=== PATIENT | male | born 1935 | race Caucasian/White ===

== ENCOUNTER 2019-12-07 07:20 | Emergency (ER) | payer OTHER ==
[2019-12-07] MEDS ORDERED: BUPIVACAINE 0.5% PF 10 ML VIAL ONE (08:49)
[2019-12-07] MEDS ORDERED: LIDOCAINE 1% MPF 5 ML VIAL ONE (08:49)
--- NOTE | 2019-12-07 08:54 | RAD REPORT ---
EXAM DESCRIPTION: RAD - Hand Left 3 View - 12/07/2019 8:02 am CLINICAL HISTORY: PAIN COMPARISON: No comparisons FINDINGS: Dislocation involving the PIP joint of the fifth finger with mild overriding. No acute fra cture seen.
--- NOTE | 2019-12-07 09:48 | RAD REPORT ---
EXAM DESCRIPTION: RAD - Hand Left 2 View - 12/07/2019 9:30 am CLINICAL HISTORY: post reduction;Pain COMPARISON: Hand Left 3 View dated 12/07/2019 FINDINGS: Previously noted dislocation of the PIP joint of the fifth finger has been reduced. Tiny a vulsion injury may be present along the dorsal base of the middle phalanx of the fifth finger.
--- NOTE | 2019-12-07 09:53 | EDPHYS ---
Physician Documentation [facility] Name: Darrel Ledesma Age: 84 yrs Sex: Male : 1935 Arrival Date: 12/07/2019 Time: 07:25 Bed 25 Private MD: Mauricio Schafer ED Physician Patrick Zhang HPI: 12/06 08:00 This 84 yrs old Male presents to ER via Ambulatory with complaints of Finger brady Injury. 08:00 Trauma demographics: County: The injury occurred in [place]. Mechanism of injury: brady Fall: the patient fell from a standing position. Associated injuries: The patient sustained dorsal aspect of middle phalanx of left little finger, contusion, decreased range of motion, deformity, painful injury. Onset: The symptoms/episode began/occurred last night. The patient has not experienced similar symptoms in the past. Historical: - Allergies: 07:36 No Known Allergies; ss - PMHx: 07:36 Depression; Hyperlipidemia; Diabetes - NIDDM; Hypertension; ss - PSHx: 07:36 brain surgery "to get dried blood off my brain"; ss - Immunization history:: Adult Immunizations up to date. - Social history:: Smoking status: Patient denies any tobacco usage or history of. ROS: 08:01 Constitutional: Negative for fever, chills, and weight loss, Eyes: Negative for injury, brady pain, redness, and discharge, ENT: Negative for injury, pain, and discharge, Neck: Negative for injury, pain, and swelling, Cardiovascular: Negative for chest pain, palpitations, and edema, Respiratory: Negative for shortness of breath, cough, wheezing, and pleuritic chest pain, Abdomen/GI: Negative for abdominal pain, nausea, vomiting, diarrhea, and constipation, Back: Negative for injury and pain, : Negative for injury, bleeding, discharge, and swelling, Skin: Negative for injury, rash, and discoloration, Neuro: Negative for headache, weakness, numbness, tingling, and seizure, Psych: Negative for depression, anxiety, suicide ideation, homicidal ideation, and hallucinations, Allergy/Immunology: Negative for hives, rash, and allergies, Endocrine: Negative for neck swelling, polydipsia, polyuria, polyphagia, and marked weight changes, Hematologic/Lymphatic: Negative for swollen nodes, abnormal bleeding, and unusual bruising. 08:01 MS/extremity: Positive for decreased range of motion, deformity, pain, swelling, tenderness, of the dorsal aspect of middle phalanx of left little finger. Exam: 08:01 Constitutional: This is a well developed, well nourished patient who is awake, alert, brady and in no acute distress. Head/Face: Normocephalic, atraumatic. Eyes: Pupils equal round and reactive to light, extra-ocular motions intact. Lids and lashes normal. Conjunctiva and sclera are non-icteric and not injected. Cornea within normal limits. Periorbital areas with no swelling, redness, or edema. ENT: Nares patent. No nasal discharge, no septal abnormalities noted. Tympanic membranes are normal and external auditory canals are clear. Oropharynx with no redness, swelling, or masses, exudates, or evidence of obstruction, uvula midline. Mucous membranes moist. Neck: Trachea midline, no thyromegaly or masses palpated, and no cervical lymphadenopathy. Supple, full range of motion without nuchal rigidity, or vertebral point tenderness. No Meningismus. Chest/axilla: Normal chest wall appearance and motion. Nontender with no deformity. No lesions are appreciated. Cardiovascular: Regular rate and rhythm with a normal S1 and S2. No gallops, murmurs, or rubs. Normal PMI, no JVD. No pulse deficits. Respiratory: Lungs have equal breath sounds bilaterally, clear to auscultation and percussion. No rales, rhonchi or wheezes noted. No increased work of breathing, no retractions or nasal flaring. Abdomen/GI: Soft, non-tender, with normal bowel sounds. No distension or tympany. No guarding or rebound. No evidence of tenderness throughout. Back: No spinal tenderness. No costovertebral tenderness. Full range of motion. Male : Normal genitalia with no discharge or lesions. Skin: Warm, dry with normal turgor. Normal color with no rashes, no lesions, and no evidence of cellulitis. Neuro: Awake and alert, GCS 15, oriented to person, place, time, and situation. Cranial nerves II-XII grossly intact. Motor strength 5/5 in all extremities. Sensory grossly intact. Cerebellar exam normal. Normal gait. Psych: Awake, alert, with orientation to person, place and time. Behavior, mood, and affect are within normal limits. 08:01 Musculoskeletal/extremity: ROM: limited active range of motion due to pain, limited passive range of motion due to pain, Circulation is intact in all extremities. Sensation intact. Compartment Syndrome exam of affected extremity: is normal. Joints: the PIP of left little finger displays dislocation. Vital Signs: 07:33 BP 155 / 90; Pulse 89; Resp 16; Temp 98.6(TE); Pulse Ox 97% on R/A; Pain 8/10; ss Procedures: 08:10 Splinting: using finger splint, applied by myself. post reduction film - Examined by brady mi, post splint application: neurovascular intact, Patient tolerated well. Reduction: of the PIP of left little finger, using traction, manipulation, flexion, Immobilized with finger splint, Patient tolerated well. Post reduction film - reveals normal alignment. MDM: 07:38 Patient medically screened. [facility] 08:03 Data reviewed: vital signs, nurses notes, radiologic studies, plain films. [facility] 08:11 Differential diagnosis: dislocation, closed fracture. Data interpreted: Cardiac brady monitor: not applicable for this patient encounter. Pulse oximetry: on room air is 97 %. Test interpretation: by ED physician or midlevel provider: plain radiologic studies. Counseling: I had a detailed discussion with the patient and/or guardian regarding: the historical points, exam findings, and any diagnostic results supporting the discharge/admit diagnosis, radiology results, the need for outpatient follow up, for definitive care, a hand specialist. ED course: digit block applied, sterile prep, reduced without complications, splinted, nvi intact. 09:49 Medication response: pain resolved, ring removed om 4th finger. [facility] 12/06 07:38 Order name: Hand Left 3 View XRAY [facility] 12/06 07:38 Order name: Ice pack; Complete Time: 07:40 [facility] 12/06 09:19 Order name: Hand Left 2 View XRAY: post reduction brady 12/06 08:00 Order name: Dressing - Wound; Complete Time: 08:57 [facility] 12/06 08:00 Order name: Gloves, Sterile; Complete Time: 08:57 [facility] 12/06 08:00 Order name: Setup Suture Tray; Complete Time: 08:57 [facility] Administered Medications: 08:45 Drug: Lidocaine (1 %) 5 ml {Note: administered to affected area by Dr. Zhang.} ss Volume: 5 ml; Route: Infiltration; 08:45 Drug: Bupivacaine (0.5 %) 5 ml {Note: administered to affected area by Dr. Zhang.} ss Volume: 10 ml; Route: Infiltration; Disposition: 12/07/19 09:52 Discharged to Home. Impression: Dislocation of proximal interphalangeal joint of left little finger - reduced, Fall due to bumping against object. - Condition is Stable. - Discharge Instructions: Finger or Thumb Dislocation, Fall Prevention in the Home, [id number], Finger or Thumb Dislocation, [id number]. - Prescriptions for Tylenol- Codeine #3 300-30 mg Oral Tablet - take 2 tablets by ORAL route every 6 hours As needed; 24 tablet. Motrin IB 200 mg Oral Tablet - take 2 tablet by ORAL route every 6 hours As needed as needed with food; 30 tablet. - Medication Reconciliation Form, Thank You Letter, Antibiotic Education, Prescription Opioid Use form. - Follow up: Mauricio Schafer; When: 2 - 3 days; Reason: Recheck today's complaints, Continuance of care, Re-evaluation by your physician. Follow up: Gibran Han; When: 2 - 3 days; Reason: Recheck today's complaints, Re-evaluation by your physician. - Problem is new. - Symptoms have improved. Signatures: Dispatcher [employer] [facility] Patrick Zhang MD MD cha Smirch, Shelby RN RN ss Corrections: (The following items were deleted from the chart) 08:04 08:00 Hand Left 2 View+RAD.RAD.BRZ ordered. [facility] 10:13 09:52 12/07/2019 09:52 Discharged to Home. Impression: Dislocation of proximal ss interphalangeal joint of left little finger - reduced; Fall due to bumping against object. Condition is Stable. Discharge Instructions: Finger or Thumb Dislocation, Fall Prevention in the Home, [id number], Finger or Thumb Dislocation, [id number]. Prescriptions for Tylenol-Codeine #3 300-30 mg Oral Tablet - take 2 tablets by ORAL route every 6 hours As needed; 24 tablet, Motrin IB 200 mg Oral Tablet - take 2 tablet by ORAL route every 6 hours As needed as needed with food; 30 tablet. and Forms are Medication Reconciliation Form, Thank You Letter, Antibiotic Education, Prescription Opioid Use. Follow up: Mauricio Schafer; When: 2 - 3 days; Reason: Recheck today's complaints, Continuance of care, Re-evaluation by your physician. Follow up: Gibran Han; When: 2 - 3 days; Reason: Recheck today's complaints, Re-evaluation by your physician. Problem is new. Symptoms have improved. brady
--- NOTE | 2019-12-07 09:53 | ER ---
Nurse's Notes [facility] Name: Darrel Ledesma Age: 84 yrs Sex: Male : 1935 Arrival Date: 12/07/2019 Time: 07:25 Bed 25 Private MD: Mauricio Schafer Diagnosis: Dislocation of proximal interphalangeal joint of left little finger-reduced;Fall due to bumping against object Presentation: 12/06 07:33 Chief complaint: Patient states: L fifth finger pain that began after falling last ss night. Coronavirus screen: Proceed with normal triage. Patient denies a cough. Patient denies shortness of breath or difficulty breathing. Patient denies measured and/or subjective temperature greater than 100.4F prior to today's visit. Patient denies travel on a cruise ship or to a country the [facility] currently lists as an affected area. Patient denies contact with known and/or suspected case of COVID-19. Ebola Screen: Patient denies exposure to infectious person. Patient denies travel to an Ebola-affected area in the 21 days before illness onset. Initial Sepsis Screen: Does the patient meet any 2 criteria? No. Patient's initial sepsis screen is negative. Does the patient have a suspected source of infection? No. Patient's initial sepsis screen is negative. Risk Assessment: Do you want to hurt yourself or someone else? Patient reports no desire to harm self or others. Onset of symptoms was December 06, 2019. 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 - Social history:: Smoking status: Patient denies any tobacco usage or history of. Screenin:36 Abuse screen: Denies threats or abuse. Denies injuries from another. Nutritional ss screening: No deficits noted. Tuberculosis screening: Never had TB. Fall Risk None identified. Assessment: 07:36 General: Appears in no apparent distress. comfortable, Behavior is calm, cooperative. ss Pain: Complains of pain in dorsal aspect of middle phalanx of left little finger Pain currently is 8 out of 10 on a pain scale. Pain began 1 day ago. Is continuous, Aggravated by increased activity. Neuro: Level of Consciousness is awake, alert, obeys commands, Oriented to person, place, time, situation. Cardiovascular: Capillary refill < 3 seconds is brisk in bilateral fingers. Respiratory: Airway is patent Respiratory effort is even, unlabored, Respiratory pattern is regular, symmetrical. GI: Patient currently denies diarrhea, nausea, vomiting. : No signs and/or symptoms were reported regarding the genitourinary system. EENT: Nares are clear Oral mucosa is moist. Derm: Skin is pink, warm \\T\\ dry. normal. Musculoskeletal: Range of motion: intact in all extremities. Vital Signs: 07:33 BP 155 / 90; Pulse 89; Resp 16; Temp 98.6(TE); Pulse Ox 97% on R/A; Pain 8/10; ss ED Course: 07:25 Patient arrived in ED. mr 07:26 Mauricio Schafer is Private Physician. mr 07:31 Patrick Zhang MD is Attending Physician. brady 07:32 Lisa Singletary RN is Primary Nurse. ss 07:35 Triage completed. ss 07:36 Arm band placed on right wrist. ss 07:36 Patient has correct armband on for positive identification. Bed in low position. Call ss light in reach. 08:04 Hand Left 3 View XRAY In Process Unspecified. EDMS 09:31 Hand Left 2 View XRAY: post reduction In Process Unspecified. EDMS 09:52 Mauricio Schafer is Referral Physician. brady 09:52 Gibran Han MD is Referral Physician. brady 10:12 No provider procedures requiring assistance completed. Patient did not have IV access ss during this emergency room visit. aluminium finger splint with Coban to L fifth finger. Administered Medications: 08:45 Drug: Lidocaine (1 %) 5 ml {Note: administered to affected area by Dr. Zhang.} ss Volume: 5 ml; Route: Infiltration; 08:45 Drug: Bupivacaine (0.5 %) 5 ml {Note: administered to affected area by Dr. Zhang.} ss Volume: 10 ml; Route: Infiltration; Outcome: 09:52 Discharge ordered by . brady 10:12 Discharged to home ambulatory. ss 10:12 Condition: good 10:12 Discharge instructions given to patient, Instructed on discharge instructions, follow up and referral plans. medication usage, Demonstrated understanding of instructions, follow-up care, medications, Prescriptions given X 2. 10:13 Patient left the ED. ss Signatures: Dispatcher [employer] EDPatrick Stephenson MD MD cha Rivera Minoo Lisa Alan, RN RN ss
[2019-12-07 10:19] VITALS: BP 155/90; TEMP 98.6; O2SAT 97
== END 2019-12-07 10:13 | disposition home or self-care (01) ==
LOC: ER 07:20
PROC: 0RSXXZZ Reposition Left Finger Phalangeal Joint, External Approach (ICD-10-PCS; principal; 2019-12-07)
DX: S63.287A Dislocation of proximal interphalangeal joint of left little finger, initial encounter (principal); W18.00XA Striking against unspecified object with subsequent fall, initial encounter; Y93.9 Activity, unspecified; Y92.89 Other specified places as the place of occurrence of the external cause; I10 Essential (primary) hypertension
CPT/HCPCS: 99284

== ENCOUNTER 2024-05-11 10:35 | Observation (INO) | payer OTHER ==
--- OUTSIDE RECORDS SUMMARY | 2024-05-11 10:41 | XMS REPORT | Continuity of Care Document ---
Author Name Unknown Address [address] [facility] [address] [place] [address] [facility] thconnect Address [address] [facility] [address] [place] [address] Care Team Providers Care Die Sinker Apprentice Name Role Phone ALMAZ MADERA Primary Care Physician Unavailab JUSTIN Tobias Attending Clinician Unav JUSTIN Martinez Attending Clinician Unav ailFAY Comer Attending Clinician UnavailJustin Hidalgo MD Attending Clinician + ALISTAIR TAYLOR Attending Clinician Unavailable ALISTAIR TAYLOR Attending Clinician Unavailable Alistair Mims Attending Clinician [phone] Fay Barrios MD K.HRah Attending Clinician + [phone] 2, [facility] Attending Clinician Unavailable Fay Barrios MD Attending Clinician + [phone] Doctor Unassigned, [place] Attending Clinician U perez 2, [facility] Attending Clinician Unavailable FAZAL YOUNG Attending Clinician Unavailable Fazal Yuong MD Attending Clinician [phone] DANYEL THURMAN Attending Clinician Unavailable JOANA MONGE Attending Clinician Unavailable Joana Almonte Attending Clinician [phone] Visit, [facility] Nurse Attending Clinician Unavailable ANAYELI CYDNEY Attending Clinician Unavailable PRISCA CHEUNG Attending Clinician Unavailab Prisca Mayen DO Attending Clinician [phone] Anayeli RICHTER, Cydney Attending Clinician [phone] ANNA GOODMAN Attending Clinician Unavailab Anna Alvarez DO Attending Clinician [phone] Loreto Terry MD Attending Clinician [phone] Pob, [facility] Main Attending Clinician Unavailshivani Thurman MD, Danyel Attending Clinician [phone] LIBAN BARRERA Attending Clinician Unavail able Nurse, [facility] Pob Immunization Attending Clinician Unavailable Liban Barrera DO Attending Clinician [phone] NITZA DE JESUS Attending Clinician Unavailable RUPESH KLINE Attending Clinician Unavailable Alma Melo Attending Clinician [phone] Ashley Bonilla MD Attending Clinician + Laurel Butcher MD Attending Clinici an LAUREL BUTCHER Attending Clinician Unavailable Nitza De Jesus DO Attending Clinician [phone] Chapis Ellis MD Attending Clinician + [phone] CHAPIS ELLIS Attending Clinician Unavailabl giorgi Negron CLIP LOADING MACHINE ADJUSTER, Gene Mitchell Attending Clinician [phone] WIN SALMON Attending Clinician Unavailable Rosalino Boggs MD Attending Clinician [phone], [facility] Attending Clinician Unavailable Mauricio Mathews MD Attending Clinician [phone] Ann Marie Ward MD Attending Clinician [phone] ANN MARIE WARD Attending Clinician Unavailabl e RACHEL, GENE MITCHELL Attending Clinician Soha Albarado RN, Lisa Attending Clinician [phone] Chapis Buckner MD Attending Clinician [phone] ASHLEY BNOILLA Attending Clinician Gris Simon MD Attending Clinician [phone] Gera RICHTER, Lulú Bee Attending Clinician + MAURICIO MATHEWS Attending Clinician Unavailab JUSTIN Tobias Admitting Clinician Unav ailALISTAIR Mcdermott Admitting Clinician Unavailable FAY BARRIOS.HRah Admitting Clinician UnavailFAZAL Rizo Admitting Clinician Unavailable DANYEL THURMAN Admitting Clinician Unavailable LORETO TERRY Admitting Clinician Unavailable Harrison RICHTER, Loreto Admitting Clinician [phone] Cuca RICHTER, Danyel Admitting Clinician [phone] LULÚ BOSS Admitting Clinician Unarickey Boss MD, Lulú Bee Admitting Clinician + MAURICIO MATHEWS Admitting Clinician Unavailab heather Payers Payer Name Policy Type Policy Number Effective Date Expirati on Date Source MEDICARE PART A \\T\\ B [id number] 1999 00:00:00 [employer] HMO [id number] 2017 00:00:00 COMMERCIAL NON-CONTRACT GENERIC [id number] 2015 00:00:00 Problems Condition Name Condition Details Condition Category Status Onset Date Resolution Date Last Treatment Date Treating Clinician Comments Source Incarcerat ed umbilical hernia Incarcerat ed umbilical hernia Disease Active 4-14 00:00: 00 [facility] 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 Disease Active 7-16 00:00: 00 [facility] HFrEF (heart failure with reduced ejection fraction) HFrEF (heart failure with reduced ejection fraction) Disease Active -17 00:00: 00 [facility] 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 Disease Active -17 00:00: 00 [facility] 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 Disease Active 10-09 00:00: 00 [facility] 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 Disease Active 10-09 00:00: 00 [facility] 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, with long-term current use of insulin 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, with long-term current use of insulin Disease Active 10-08 00:00: 00 [facility] 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, with long-term current use of insulin 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, with long-term current use of insulin Disease Active 10-08 00:00: 00 [facility] Essential hypertensi on Essential hypertensi on Disease Active 08-15 00:00: 00 [facility] Other hyperlipid emia Other hyperlipid emia Disease Active 08-15 00:00: 00 [facility] KSENIA (acute kidney injury) KSENIA (acute kidney injury) Disease Active 08-15 00:00: 00 [facility] KSENIA (acute kidney injury) KSENIA (acute kidney injury) Disease Active 08-15 00:00: 00 [facility] NSTEMI (non-ST elevated myocardial infarction ) NSTEMI (non-ST elevated myocardial infarction ) Disease Active 08-14 00:00: 00 [facility] Acute diastolic congestive heart failure Acute diastolic congestive heart failure Disease Resolve d 08-15 00:00: 00 2020-10-09 00:00:00 2020-10-09 13:25:06 [facility] Allergies, Adverse Reactions, Alerts Allergy Name Allergy Type Status Severity Reaction(s) Onset Date Inactive Date Treating Clinician Comments Source NO KNOWN ALLERGIE S Drug Class Active [facility] Social History Social Habit Start Date Stop Date Quantity Comments Source History of tobacco use Current smoker [facility] Alcoholic beverage intake 2024-04-18 00:00:00 2024-04-18 00:00:00 Current non-drinker of alcohol (finding) [facility] Alcohol intake 2023-05-31 00:00:00 2023-05-31 00:00:00 Current non-drinker of alcohol (finding) [facility] Exposure to SARS-CoV-2 (event) 2022-10-10 00:00:00 2022-10-20 13:49:00 Not sure [facility] History of Social function 2022-09-14 00:00:00 2022-09-14 00:00:00 [facility] Tobacco use and exposure 2022-05-11 00:00:00 2022-05-11 00:00:00 Smokeless tobacco non-user [facility] Tobacco Comment 2022-05-11 00:00:00 2022-05-11 00:00:00 quit 15-16 years ago [facility] Sex assigned at 1935 00:00:00 1935 00:00:00 [facility] Smoking Status Start Date Stop Date Source Ex-smoker 2022-05-11 00:00:00 2022-05-11 00:00:00 [facility] Medications Ordered Medication Name Filled Medication Name Start Date Stop Date Current Medication? Ordering Clinician Indication Dosage Frequency Signature (SIG) Comments Components Source pantoprazol e (PROTONIX) EC tablet 40 mg 04-18 23:15: 00 04-18 23:15 :00 No 40mg 40 mg, Oral, ONCE, 1 dose, On Wed04/18/24 at 1815, [facility] metoclopram lakia HCl (REGLAN) tablet 5 mg 04-18 23:10: 00 04-18 23:15 :00 No 5mg 5 mg, Oral, ONCE, 1 dose, On Wed04/18/24 at 1815, [facility] NaCl 0.9% (NS) bolus infusion 500 mL 04-18 22:30: 00 04-18 23:23 :00 No 500mL at 999 mL/hr, 500 mL, IV Infusion, ONCE, 1 dose, On Wed04/18/24 at 1730, STAT [facility] sodium chloride (NS) injection 5 mL 04-18 21:35: 26 Yes 5mL 5 mL, Intravenou s, PRN, Starting on Wed04/18/24 at 1635, Until Discontinu ed, Routine, IV line flushing [facility] metoprolol succinate XL 25 mg 24 hr tablet 8-14 00:00: 00 Yes [id number] 25mg TAKE 1 TABLET BY MOUTH EVERY MORNING AND EVENING. [facility] perflutren protein-A microsphr (OPTISON) injection 3 mL 12-26 18:45: 00 12-26 19:03 :00 No [id number] 3mL 3 mL, IV Push, ONCE, 1 dose, On Wed12/27/23 at 1345, Routine [facility] citalopram (CELEXA) 10 mg tablet 08-05 10:40: 37 08-05 00:00 :00 No 10mg Take 1 tablet by mouth in the morning. [facility] metoprolol succinate XL 25 mg 24 hr tablet 08-05 00:00: 00 Yes [id number] 25mg Take 1 tablet by mouth every morning and evening. [facility] metoprolol succinate XL 25 mg 24 hr tablet 08-05 00:00: 00 08-05 00:00 :00 No [id number] 50mg Take 2 tablets by mouth every morning and evening. [facility] losartan 25 mg tablet 2022-07 00:00: 00 Yes [id number] 25mg Take 1 tablet by mouth every morning. [facility] simvastatin 40 mg tablet 2022-07 00:00: 00 Yes [id number] 40mg Take 1 tablet by mouth at bedtime. [facility] furosemide 20 mg tablet 2022-07 00:00: 00 Yes [id number] 20mg Take 1 tablet by mouth in the morning. [facility] metoprolol succinate XL 25 mg 24 hr tablet 2022-07 00:00: 00 08-05 00:00 :00 No [id number] 25mg Take 1 tablet by mouth every morning and evening. [facility] LOSARTAN 25 mg tablet 2022-07 1- 00:00: 00 05-31 00:00 :00 No [id number] 25mg TAKE 1 TABLET BY MOUTH EVERY DAY IN THE MORNING [facility] METOPROLOL SUCCINATE XL 25 mg 24 hr tablet 2022-07 0-26 00:00: 00 05-31 00:00 :00 No [id number] 25mg TAKE 1 TABLET BY MOUTH IN THE MORNING AND IN THE EVENING [facility] B Complex Vitamins tablet 2022-07 0 00:00: 00 Yes [id number] 1{tbl} Take 1 tablet by mouth in the morning. [facility] Cholecalcif samir, Vitamin D3, (VITAMIN D3) 125 mcg (5,000 unit) tablet 2022-07 00:00: 00 Yes [id number] 5000U Take 1 tablet by mouth in the morning. [facility] Oral Electrolyte s (PEDIALYTE ADVANCED CARE) solution 2022-07 0 00:00: 00 08-05 00:00 :00 No [id number] 500mL Take 500 mL by mouth every 6 (six) hours. [facility] metoclopram lakia HCl 10 mg tablet 2022-07 0 00:00: 00 08-05 00:00 :00 No [id number] 10mg Take 1 tablet by mouth every 6 (six) hours as needed (Hiccups). [facility] losartan 25 mg tablet 09-29 10:09: 47 09-29 00:00 :00 No 1 tablet [facility] magnesium oxide 400 mg magnesium Tab 09-29 00:00: 00 08-05 00:00 :00 No [id number] 400mg Take 400 mg by mouth in the morning and 400 mg in the evening. [facility] simvastatin 40 mg tablet 09-29 00:00: 00 05-31 00:00 :00 No [id number] 40mg Take 1 tablet by mouth at bedtime. [facility] furosemide 20 mg tablet 09-29 00:00: 05-31 00:00 :00 No [id number] 20mg Take 1 tablet by mouth in the morning. [facility] losartan 25 mg tablet 09-29 00:00: 05-28 00:00 :00 No [id number] 25mg Take 1 tablet by mouth in the morning. [facility] metoprolol succinate XL 25 mg 24 hr tablet 09-29 00:00: 05-20 00:00 :00 No [id number] 25mg Take 1 tablet by mouth in the morning and 1 tablet in the evening. [facility] digoxin 125 mcg (0.125 mg) tablet 09-29 00:00: 00 10-20 00:00 :00 No [id number] 125ug Take 1 tablet by mouth every other day. [facility] citalopram (CELEXA) 10 mg tablet 09-22 11:17: 08 Yes 10mg Take 1 tablet by mouth in the morning. [facility] losartan 25 mg tablet 09-22 11:17: 08 Yes 1 tablet [facility] NaCl 0.9% (NS) bolus infusion 500 mL 09-15 21:00: 00 09-15 21:54 :00 No 500mL at 999 mL/hr, 500 mL, IV Infusion, ONCE, 1 dose, On Wed09/15/22 at 1500, STAT [facility] NaCl 0.9% (NS) bolus infusion 1,000 mL 09-15 19:30: 00 09-15 21:30 :00 No 1000mL at 999 mL/hr, 1,000 mL, IV Infusion, ONCE, 1 dose, On Wed09/15/22 at 1330, STAT [facility] furosemide 20 mg tablet 09-15 00:00: 00 09-29 00:00 :00 No [id number] 20mg Take 1 tablet by mouth in the morning. [facility] insulin degludec (TRESIBA FLEXTOUCH U-200 SC) 09-14 13:07: 47 Yes 30U inject 30 Units under the skin daily. [facility] furosemide 20 mg tablet 08-31 14:49: 34 08-31 00:00 :00 No 20mg Take 20 mg by mouth every morning and evening. [facility] empaglifloz in 10 mg 08-31 00:00: 00 09-22 00:00 :00 No [id number] 10mg Take 1 tablet by mouth in the morning. [facility] furosemide 20 mg tablet 08-31 00:00: 00 09-15 00:00 :00 No [id number] 20mg Take 1 tablet by mouth every morning and evening. [facility] hydrALAZINE 10 mg tablet 2021-07 10:01: 23 07-13 00:00 :00 No 10mg Take 10 mg by mouth in the morning and 10 mg at noon and 10 mg in the evening. [facility] citalopram (CELEXA) 10 mg tablet 2021-07 08:49: 05 Yes 10mg Take 10 mg by mouth daily. [facility] furosemide 20 mg tablet 2021-07 08:48: 45 Yes 20mg Take 20 mg by mouth every morning and evening. [facility] insulin degludec (TRESIBA FLEXTOUCH U-200 SC) 2021-07 08:48: 45 Yes 30U inject 30 Units under the skin daily. [facility] hydrALAZINE 10 mg tablet 2021-07 08:48: 45 Yes 10mg Take 10 mg by mouth in the morning and 10 mg at noon and 10 mg in the evening. [facility] hydrALAZINE 10 mg tablet 2021-07 00:00: 00 08-31 00:00 :00 No 10mg Take 1 tablet by mouth in the morning and 1 tablet in the evening. [facility] furosemide 20 mg tablet 2021-0717 08:32: 49 Yes 20mg Take 20 mg by mouth every morning and evening. [facility] simvastatin 40 mg tablet 2021-07 00:00: 00 09-29 00:00 :00 No [id number] 40mg Take 1 tablet by mouth at bedtime. [facility] digoxin 125 mcg (0.125 mg) tablet 2021-07 12:26: 05-07 00:00 :00 No 125ug Take 125 mcg by mouth every 2 (two) days. [facility] metoprolol succinate XL 25 mg 24 hr tablet 2021-07 12:: 05-07 00:00 :00 No 25mg Take 25 mg by mouth 2 (two) times daily. [facility] digoxin 125 mcg (0.125 mg) tablet 2021-07 00:00: 00 09-29 00:00 :00 No [id number] 125ug Take 1 tablet by mouth every other day. [facility] metoprolol succinate XL 25 mg 24 hr tablet 2021-07 00:00: 00 09-29 00:00 :00 No [id number] 25mg Take 1 tablet by mouth in the morning and 1 tablet in the evening. [facility] losartan 25 mg tablet 2021-07 00:00: 00 09-15 00:00 :00 No [id number] 25mg Take 1 tablet by mouth in the morning. [facility] furosemide 20 mg tablet 2021-07 09:15: 51 Yes 20mg Take 20 mg by mouth every morning and evening. [facility] metoprolol succinate XL 25 mg 24 hr tablet 2021-07 09:13: 53 Yes 25mg Take 25 mg by mouth 2 (two) times daily. [facility] digoxin 125 mcg (0.125 mg) tablet 2021-07 09:13: 52 Yes 125ug Take 125 mcg by mouth every 2 (two) days. [facility] hydrALAZINE 10 mg tablet 2021-07 08:54: 00 Yes 10mg Take 10 mg by mouth in the morning and 10 mg at noon and 10 mg in the evening. [facility] furosemide (LASIX) 20 mg tablet 01-23 13:18: 22 Yes 10mg Take 10 mg by mouth every morning and evening. [facility] insulin degludec (TRESIBA FLEXTOUCH U-200 SC) 01-23 12:53: 00 Yes 30U inject 30 Units under the skin daily. [facility] citalopram (CELEXA) 10 mg tablet 12-06 22:14: 34 Yes 10mg Take 10 mg by mouth daily. [facility] digoxin 125 mcg (0.125 mg) tablet 12-06 22:14: 34 Yes 125ug Take 125 mcg by mouth every 2 (two) days. [facility] metoprolol succinate XL (TOPROL XL) 25 mg 24 hr tablet 12-06 22:14: 34 Yes 25mg Take 25 mg by mouth 2 (two) times daily. [facility] fluticasone -umeclidin- vilanter (TRELEGY ELLIPTA) 100-62.5-25 mcg DsDv 12-06 22:13: 53 12-06 00:00 :00 No Inhale. [facility] tiZANidine 4 mg tablet 12-06 22:13: 32 12-06 00:00 :00 No 4mg Take 4 mg by mouth 3 (three) times daily as needed. [facility] montelukast 10 mg tablet 12-06 22:13: 29 12-06 00:00 :00 No 10mg Take 10 mg by mouth daily. [facility] traMADoL 50 mg tablet 8-03 00:00: 00 12-06 00:00 :00 No [id number] 50mg Take 1 tablet by mouth every 6 (six) hours as needed for Pain (scale 7-10). Indication s: acute pain [facility] aspirin 81 mg chewable tablet 02-09 00:00: 00 Yes [id number] 81mg Take 1 tablet by mouth daily. [facility] losartan 25 mg tablet 02-09 00:00: 00 05-07 00:00 :00 No [id number] 25mg Take 1 tablet by mouth daily. [facility] digoxin 125 mcg tablet 02-09 00:00: 00 12-06 00:00 :00 No [id number] .125mg Take 1 tablet by mouth daily. [facility] furosemide 20 mg tablet 02-09 00:00: 00 12-06 00:00 :00 No [id number] 60mg Take 3 tablets by mouth daily. [facility] metoprolol succinate XL 50 mg 24 hr tablet 02-08 00:00: 00 12-06 00:00 :00 No [id number] 50mg Take 1 tablet by mouth 2 (two) times daily with meals. [facility] Colesevelam (WELCHOL) 3.75 gram PwPk 02-07 15:23: 29 02-07 00:00 :00 No Take by mouth. [facility] digoxin 125 mcg (0.125 mg) tablet 11-07 00:00: 00 11-18 00:00 :00 No 125ug Take 1 tablet by mouth daily. [facility] isosorbide dinitrate 10 mg tablet 11-07 00:00: 00 11-11 00:00 :00 No 10mg Take 1 tablet by mouth 3 (three) times daily. [facility] hydrALAZINE 10 mg tablet 15 00:00: 00 11-11 00:00 :00 No 10mg Take 1 tablet by mouth 3 (three) times daily. [facility] sodium polystyrene sulfonate 15 gram/60 mL suspension 09 00:00: 00 06-30 00:00 :00 No [id number] 15g Take 60 mL by mouth daily. [facility] simvastatin 40 mg tablet 10-28 00:00: 00 01-27 04:59 :00 No [id number] 40mg Take 1 tablet by mouth at bedtime for 90 days. [facility] magnesium oxide 400 mg magnesium Tab 325 00:00: 00 09-29 00:00 :00 No 400mg Take 400 mg by mouth 2 (two) times daily. [facility] furosemide 20 mg tablet 10-14 00:00: 00 12-06 00:00 :00 No 40mg Take 2 tablets by mouth 2 (two) times daily. [facility] insulin NPH and regular human 70-30 100 unit/mL (70-30) injection 10-09 00:00: 00 Yes [id number] 25U inject 25 Units under the skin 2 (two) times daily before breakfast and dinner. [facility] insulin syr/ndl U100 half idris 0.3 mL 31 gauge x 1/4" Syrg 10-09 00:00: 00 Yes [id number] 200{eac h} 200 Each 2 (two) times daily with meals. [facility] metoprolol succinate XL 50 mg 24 hr tablet 10-09 00:00: 00 02-08 00:00 :00 No [id number] 50mg Take 1 tablet by mouth 2 (two) times daily with meals. [facility] aspirin 81 mg chewable tablet 08-26 00:00: 00 02-08 00:00 :00 No [id number] 81mg Take 1 tablet by mouth daily. [facility] Immunizations Ordered Immunization Name Filled Immunization Name Date Status Comments Source Influenza Virus Vaccine,quad Im,preserve Free 65+ (FLUAD) 2023-05-31 00:00:00 Completed [facility] Influenza Virus Vaccine,quad Im,preserve Free 65+ 2022-05-11 00:00:00 Completed [facility] Influenza Virus Vaccine,quad Im,preserve Free 65+ 2022-05-11 00:00:00 Completed [facility] Influenza Virus Vaccine,quad Im,preserve Free 65+ 2022-05-11 00:00:00 Completed [facility] Influenza Virus Vaccine,quad Im,preserve Free 65+ 2022-05-11 00:00:00 Completed [facility] Influenza Virus Vaccine,quad Im,preserve Free 652022-05-11 00:00:00 Completed [facility] Influenza Virus Vaccine,quad Im,preserve Free 652022-05-11 00:00:00 Completed [facility] Influenza Virus Vaccine,quad Im,preserve Free 65+ 2022-05-11 00:00:00 Completed [facility] Influenza Virus Vaccine,quad Im,preserve Free 652022-05-11 00:00:00 Completed [facility] Influenza Virus Vaccine,quad Im,preserve Free 65+ 2022-05-11 00:00:00 Completed [facility] Influenza Virus Vaccine,quad Im,preserve Free 65+ 2022-05-11 00:00:00 Completed [facility] Influenza Virus Vaccine,quad Im,preserve Free 652022-05-11 00:00:00 Completed [facility] Influenza Virus Vaccine,quad Im,preserve Free 652022-05-11 00:00:00 Completed [facility] Influenza Virus Vaccine,quad Im,preserve Free 652022-05-11 00:00:00 Completed [facility] Influenza Virus Vaccine,quad Im,preserve Free 652022-05-11 00:00:00 Completed [facility] Influenza Virus Vaccine,quad Im,preserve Free 652022-05-11 00:00:00 Completed [facility] Influenza Virus Vaccine,quad Im,preserve Free 652022-05-11 00:00:00 Completed [facility] Influenza Virus Vaccine,quad Im,preserve Free 652022-05-11 00:00:00 Completed [facility] Influenza Virus Vaccine,quad Im,preserve Free 652022-05-11 00:00:00 Completed [facility] Influenza Virus Vaccine,quad Im,preserve Free 652022-05-11 00:00:00 Completed [facility] Influenza Virus Vaccine,quad Im,preserve Free 652022-05-11 00:00:00 Completed [facility] Influenza Virus Vaccine,quad Im,preserve Free 65+ 2022-05-11 00:00:00 Completed [facility] Influenza Virus Vaccine,quad Im,preserve Free 65+ 2022-05-11 00:00:00 Completed [facility] Influenza Virus Vaccine,quad Im,preserve Free 65+ 2022-05-11 00:00:00 Completed [facility] Influenza Virus Vaccine,quad Im,preserve Free 65+ 2022-05-11 00:00:00 Completed [facility] Influenza Virus Vaccine,quad Im,preserve Free 65+ 2022-05-11 00:00:00 Completed [facility] Influenza Virus Vaccine,quad Im,preserve Free 65+ 2022-05-11 00:00:00 Completed [facility] Influenza Virus Vaccine,quad Im,preserve Free 65+ (FLUAD) 2022-05-11 00:00:00 Completed [facility] SARS-COV-2 COVID-19 MODERNA 0.25ML BOOSTER VACCINE 2021-06-10 00:00:00 Completed [facility] SARS-COV-2 COVID-19 MODERNA 0.25ML BOOSTER VACCINE 2021-06-10 00:00:00 Completed [facility] SARS-COV-2 COVID-19 MODERNA 0.25ML BOOSTER VACCINE 2021-06-10 00:00:00 Completed [facility] SARS-COV-2 COVID-19 MODERNA 0.25ML BOOSTER VACCINE 2021-06-10 00:00:00 Completed [facility] SARS-COV-2 COVID-19 MODERNA 0.25ML BOOSTER VACCINE 2021-06-10 00:00:00 Completed [facility] SARS-COV-2 COVID-19 MODERNA 0.25ML BOOSTER VACCINE 2021-06-10 00:00:00 Completed [facility] SARS-COV-2 COVID-19 MODERNA 0.25ML BOOSTER VACCINE 2021-06-10 00:00:00 Completed [facility] SARS-COV-2 COVID-19 MODERNA 0.25ML BOOSTER VACCINE 2021-06-10 00:00:00 Completed [facility] SARS-COV-2 COVID-19 MODERNA 0.25ML BOOSTER VACCINE 2021-06-10 00:00:00 Completed [facility] SARS-COV-2 COVID-19 MODERNA 0.25ML BOOSTER VACCINE 2021-06-10 00:00:00 Completed [facility] SARS-COV-2 COVID-19 MODERNA 0.25ML BOOSTER VACCINE 2021-06-10 00:00:00 [facility] [facility]2 COVID-19 MODERNA 0.25ML BOOSTER VACCINE 2021-06-10 00:00:00 Completed [facility] SARS-COV-2 COVID-19 MODERNA 0.25ML BOOSTER VACCINE 2021-06-10 00:00:00 Completed [facility] SARS-COV-2 COVID-19 MODERNA 0.25ML BOOSTER VACCINE 2021-06-10 00:00:00 Completed [facility] SARS-COV-2 COVID-19 MODERNA 0.25ML BOOSTER VACCINE 2021-06-10 00:00:00 Completed [facility] SARS-COV-2 COVID-19 MODERNA 0.25ML BOOSTER VACCINE 2021-06-10 00:00:00 Completed [facility] SARS-COV-2 COVID-19 MODERNA 0.25ML BOOSTER VACCINE 2021-06-10 00:00:00 Completed [facility] SARS-COV-2 COVID-19 MODERNA 0.25ML BOOSTER VACCINE 2021-06-10 00:00:00 Completed [facility] SARS-COV-2 COVID-19 MODERNA 0.25ML BOOSTER VACCINE 2021-06-10 00:00:00 Completed [facility] SARS-COV-2 COVID-19 MODERNA 0.25ML BOOSTER VACCINE 2021-06-10 00:00:00 Completed [facility] SARS-COV-2 COVID-19 MODERNA 0.25ML BOOSTER VACCINE 2021-06-10 00:00:00 Completed [facility] SARS-COV-2 COVID-19 MODERNA 0.25ML BOOSTER VACCINE 2021-06-10 00:00:00 Completed [facility] SARS-COV-2 COVID-19 MODERNA 0.25ML BOOSTER VACCINE 2021-06-10 00:00:00 Completed [facility] SARS-COV-2 COVID-19 MODERNA 0.25ML BOOSTER VACCINE 2021-06-10 00:00:00 Completed [facility] SARS-COV-2 COVID-19 MODERNA 0.25ML BOOSTER VACCINE 2021-06-10 00:00:00 Completed [facility] SARS-COV-2 COVID-19 MODERNA 0.25ML BOOSTER VACCINE 2021-06-10 00:00:00 Completed [facility] SARS-COV-2 COVID-19 MODERNA 0.25ML BOOSTER VACCINE 2021-06-10 00:00:00 Completed [facility] SARS-COV-2 COVID-19 MODERNA 0.25ML BOOSTER VACCINE 2021-06-10 00:00:00 Completed [facility] SARS-COV-2 COVID-19 MODERNA 0.25ML BOOSTER VACCINE 2021-06-10 00:00:00 Completed [facility] SARS-COV-2 COVID-19 MODERNA 0.25ML BOOSTER VACCINE 2021-06-10 00:00:00 Completed [facility] SARS-COV-2 COVID-19 MODERNA 0.25ML BOOSTER VACCINE 2021-06-10 00:00:00 Completed [facility] SARS-COV-2 COVID-19 MODERNA 0.25ML BOOSTER VACCINE 2021-06-10 00:00:00 Completed SARS-COV-2 COVID-19 MODERNA VACCINE 2020-09-30 00:00:00 Completed [facility] SARS-COV-2 COVID-19 MODERNA VACCINE 2020-09-30 00:00:00 Completed [facility] SARS-COV-2 COVID-19 MODERNA 12+ YRS VACCINE 2020-09-30 00:00:00 Completed [facility] SARS-COV-2 COVID-19 MODERNA 12+ YRS VACCINE 2020-09-30 00:00:00 Completed [facility] SARS-COV-2 COVID-19 MODERNA 12+ YRS VACCINE 2020-09-30 00:00:00 Completed [facility] SARS-COV-2 COVID-19 MODERNA 12+ YRS VACCINE 2020-09-30 00:00:00 Completed [facility] SARS-COV-2 COVID-19 MODERNA 12+ YRS VACCINE 2020-09-30 00:00:00 Completed [facility] SARS-COV-2 COVID-19 MODERNA 12+ YRS VACCINE 2020-09-30 00:00:00 Completed [facility] SARS-COV-2 COVID-19 MODERNA 12+ YRS VACCINE 2020-09-30 00:00:00 Completed [facility] SARS-COV-2 COVID-19 MODERNA 12+ YRS VACCINE 2020-09-30 00:00:00 Completed [facility] SARS-COV-2 COVID-19 MODERNA 12+ YRS VACCINE 2020-09-30 00:00:00 Completed [facility] SARS-COV-2 COVID-19 MODERNA 12+ YRS VACCINE 2020-09-30 00:00:00 Completed [facility] SARS-COV-2 COVID-19 MODERNA 12+ YRS VACCINE 2020-09-30 00:00:00 Completed [facility] SARS-COV-2 COVID-19 MODERNA 12+ YRS VACCINE 2020-09-30 00:00:00 Completed [facility] SARS-COV-2 COVID-19 MODERNA 12+ YRS VACCINE 2020-09-30 00:00:00 Completed [facility] SARS-COV-2 COVID-19 MODERNA 12+ YRS VACCINE 2020-09-30 00:00:00 Completed [facility] SARS-COV-2 COVID-19 MODERNA 12+ YRS VACCINE 2020-09-30 00:00:00 Completed [facility] SARS-COV-2 COVID-19 MODERNA 12+ YRS VACCINE 2020-09-30 00:00:00 Completed [facility] SARS-COV-2 COVID-19 MODERNA 12+ YRS VACCINE 2020-09-30 00:00:00 Completed [facility] SARS-COV-2 COVID-19 MODERNA 12+ YRS VACCINE 2020-09-30 00:00:00 Completed [facility] SARS-COV-2 COVID-19 MODERNA 12+ YRS VACCINE 2020-09-30 00:00:00 Completed [facility] SARS-COV-2 COVID-19 MODERNA 12+ YRS VACCINE 2020-09-30 00:00:00 Completed [facility] SARS-COV-2 COVID-19 MODERNA 12+ YRS VACCINE 2020-09-30 00:00:00 Completed [facility] SARS-COV-2 COVID-19 MODERNA 12+ YRS VACCINE 2020-09-30 00:00:00 Completed [facility] SARS-COV-2 COVID-19 MODERNA 12+ YRS VACCINE 2020-09-30 00:00:00 Completed [facility] SARS-COV-2 COVID-19 MODERNA 12+ YRS VACCINE 2020-09-30 00:00:00 Completed [facility] SARS-COV-2 COVID-19 MODERNA 12+ YRS VACCINE 2020-09-30 00:00:00 Completed [facility] SARS-COV-2 COVID-19 MODERNA 12+ YRS VACCINE 2020-09-30 00:00:00 Completed [facility] SARS-COV-2 COVID-19 MODERNA 12+ YRS VACCINE 2020-09-30 00:00:00 Completed [facility] SARS-COV-2 COVID-19 MODERNA 12+ YRS VACCINE 2020-09-30 00:00:00 Completed [facility] SARS-COV-2 COVID-19 MODERNA 12+ YRS VACCINE 2020-09-30 00:00:00 Completed [facility] SARS-COV-2 COVID-19 MODERNA 12+ YRS VACCINE 2020-09-30 00:00:00 Completed [facility] SARS-COV-2 COVID-19 MODERNA VACCINE 2020-09-02 00:00:00 Completed [facility] SARS-COV-2 COVID-19 MODERNA VACCINE 2020-09-02 00:00:00 Completed [facility] SARS-COV-2 COVID-19 MODERNA 12+ YRS VACCINE 2020-09-02 00:00:00 Completed [facility] SARS-COV-2 COVID-19 MODERNA 12+ YRS VACCINE 2020-09-02 00:00:00 Completed [facility] SARS-COV-2 COVID-19 MODERNA 12+ YRS VACCINE 2020-09-02 00:00:00 Completed [facility] SARS-COV-2 COVID-19 MODERNA 12+ YRS VACCINE 2020-09-02 00:00:00 Completed [facility] SARS-COV-2 COVID-19 MODERNA 12+ YRS VACCINE 2020-09-02 00:00:00 Completed [facility] SARS-COV-2 COVID-19 MODERNA 12+ YRS VACCINE 2020-09-02 00:00:00 Completed [facility] SARS-COV-2 COVID-19 MODERNA 12+ YRS VACCINE 2020-09-02 00:00:00 Completed [facility] SARS-COV-2 COVID-19 MODERNA 12+ YRS VACCINE 2020-09-02 00:00:00 Completed [facility] SARS-COV-2 COVID-19 MODERNA 12+ YRS VACCINE 2020-09-02 00:00:00 Completed [facility] SARS-COV-2 COVID-19 MODERNA 12+ YRS VACCINE 2020-09-02 00:00:00 Completed [facility] SARS-COV-2 COVID-19 MODERNA 12+ YRS VACCINE 2020-09-02 00:00:00 Completed [facility] SARS-COV-2 COVID-19 MODERNA 12+ YRS VACCINE 2020-09-02 00:00:00 Completed [facility] SARS-COV-2 COVID-19 MODERNA 12+ YRS VACCINE 2020-09-02 00:00:00 Completed [facility] SARS-COV-2 COVID-19 MODERNA 12+ YRS VACCINE 2020-09-02 00:00:00 Completed [facility] SARS-COV-2 COVID-19 MODERNA 12+ YRS VACCINE 2020-09-02 00:00:00 Completed [facility] SARS-COV-2 COVID-19 MODERNA 12+ YRS VACCINE 2020-09-02 00:00:00 Completed [facility] SARS-COV-2 COVID-19 MODERNA 12+ YRS VACCINE 2020-09-02 00:00:00 Completed [facility] SARS-COV-2 COVID-19 MODERNA 12+ YRS VACCINE 2020-09-02 00:00:00 Completed [facility] SARS-COV-2 COVID-19 MODERNA 12+ YRS VACCINE 2020-09-02 00:00:00 Completed [facility] SARS-COV-2 COVID-19 MODERNA 12+ YRS VACCINE 2020-09-02 00:00:00 Completed [facility] SARS-COV-2 COVID-19 MODERNA 12+ YRS VACCINE 2020-09-02 00:00:00 Completed [facility] SARS-COV-2 COVID-19 MODERNA 12+ YRS VACCINE 2020-09-02 00:00:00 Completed [facility] SARS-COV-2 COVID-19 MODERNA 12+ YRS VACCINE 2020-09-02 00:00:00 Completed [facility] SARS-COV-2 COVID-19 MODERNA 12+ YRS VACCINE 2020-09-02 00:00:00 Completed [facility] SARS-COV-2 COVID-19 MODERNA 12+ YRS VACCINE 2020-09-02 00:00:00 Completed [facility] SARS-COV-2 COVID-19 MODERNA 12+ YRS VACCINE 2020-09-02 00:00:00 Completed [facility] SARS-COV-2 COVID-19 MODERNA 12+ YRS VACCINE 2020-09-02 00:00:00 Completed [facility] SARS-COV-2 COVID-19 MODERNA 12+ YRS VACCINE 2020-09-02 00:00:00 Completed [facility] SARS-COV-2 COVID-19 MODERNA 12+ YRS VACCINE 2020-09-02 00:00:00 Completed [facility] SARS-COV-2 COVID-19 MODERNA 12+ YRS VACCINE 2020-09-02 00:00:00 Completed [facility] Influenza High Dose 2019-06-12 00:00:00 Completed [facility] Influenza High Dose 2019-06-12 00:00:00 Completed [facility] Influenza High Dose 2019-06-12 00:00:00 Completed [facility] Influenza High Dose 2019-06-12 00:00:00 Completed [facility] Influenza High Dose 2019-06-12 00:00:00 Completed [facility] Influenza High Dose 2019-06-12 00:00:00 Completed [facility] Influenza High Dose 2019-06-12 00:00:00 Completed [facility] Influenza High Dose 2019-06-12 00:00:00 Completed [facility] Influenza High Dose 2019-06-12 00:00:00 Completed [facility] Influenza High Dose 2019-06-12 00:00:00 Completed [facility] Influenza High Dose 2019-06-12 00:00:00 Completed [facility] Influenza High Dose 2019-06-12 00:00:00 Completed [facility] Influenza High Dose 2019-06-12 00:00:00 Completed [facility] Influenza High Dose 2019-06-12 00:00:00 Completed [facility] Influenza High Dose 2019-06-12 00:00:00 Completed [facility] Influenza High Dose 2019-06-12 00:00:00 Completed [facility] Influenza High Dose 2019-06-12 00:00:00 Completed [facility] Influenza High Dose 2019-06-12 00:00:00 Completed [facility] Influenza High Dose 2019-06-12 00:00:00 Completed [facility] Influenza High Dose 2019-06-12 00:00:00 Completed [facility] Influenza High Dose 2019-06-12 00:00:00 Completed [facility] Influenza High Dose 2019-06-12 00:00:00 Completed [facility] Influenza High Dose 2019-06-12 00:00:00 Completed [facility] Influenza High Dose 2019-06-12 00:00:00 Completed [facility] Influenza High Dose 2019-06-12 00:00:00 Completed [facility] Influenza High Dose 2019-06-12 00:00:00 Completed [facility] Influenza High Dose 2019-06-12 00:00:00 Completed [facility] Influenza High Dose 2019-06-12 00:00:00 Completed [facility] Influenza High Dose 2019-06-12 00:00:00 Completed [facility] Influenza High Dose 2019-06-12 00:00:00 Completed [facility] Influenza High Dose 2019-06-12 00:00:00 Completed [facility] Influenza, High-Dose, Trivalent, PF (FLUZONE) 2019-06-12 00:00:00 Completed [facility] Influenza High Dose Unknown Completed [facility] SARS-COV-2 COVID-19 MODERNA 12+ YRS VACCINE Unknown Completed [facility] SARS-COV-2 COVID-19 MODERNA 0.25ML BOOSTER VACCINE Unknown Completed [facility] Influenza Virus Vaccine,quad Im,preserve Free 65+ (FLUAD) Unknown Completed [facility] Influenza High Dose Unknown Completed [facility] SARS-COV-2 COVID-19 MODERNA 12+ YRS VACCINE Unknown Completed [facility] Influenza High Dose Unknown Completed [facility] SARS-COV-2 COVID-19 MODERNA 12+ YRS VACCINE Unknown Completed [facility] Influenza High Dose Unknown Completed [facility] SARS-COV-2 COVID-19 MODERNA 12+ YRS VACCINE Unknown Completed [facility] Influenza High Dose Unknown Completed [facility] SARS-COV-2 COVID-19 MODERNA 12+ YRS VACCINE Unknown Completed [facility] SARS-COV-2 COVID-19 MODERNA 0.25ML BOOSTER VACCINE Unknown Completed [facility] Influenza Virus Vaccine,quad Im,preserve Free 65+ (FLUAD) Unknown Completed [facility] Influenza High Dose Unknown Completed [facility] SARS-COV-2 COVID-19 MODERNA 12+ YRS VACCINE Unknown Completed [facility] SARS-COV-2 COVID-19 MODERNA 0.25ML BOOSTER VACCINE Unknown Completed [facility] Influenza Virus Vaccine,quad Im,preserve Free 65+ (FLUAD) Unknown Completed [facility] Influenza High Dose Unknown Completed [facility] SARS-COV-2 COVID-19 MODERNA 12+ YRS VACCINE Unknown Completed [facility] SARS-COV-2 COVID-19 MODERNA 0.25ML BOOSTER VACCINE Unknown Completed [facility] Influenza Virus Vaccine,quad Im,preserve Free 65+ (FLUAD) Unknown Completed [facility] Influenza High Dose Unknown Completed [facility] SARS-COV-2 COVID-19 MODERNA 12+ YRS VACCINE Unknown Completed [facility] SARS-COV-2 COVID-19 MODERNA 0.25ML BOOSTER VACCINE Unknown Completed [facility] Influenza Virus Vaccine,quad Im,preserve Free 65+ (FLUAD) Unknown Completed [facility] Influenza High Dose Unknown Completed [facility] SARS-COV-2 COVID-19 MODERNA 12+ YRS VACCINE Unknown Completed [facility] SARS-COV-2 COVID-19 MODERNA 0.25ML BOOSTER VACCINE Unknown Completed [facility] Influenza Virus Vaccine,quad Im,preserve Free 65+ (FLUAD) Unknown Completed [facility] Influenza High Dose Unknown Completed [facility] SARS-COV-2 COVID-19 MODERNA 12+ YRS VACCINE Unknown Completed [facility] SARS-COV-2 COVID-19 MODERNA 0.25ML BOOSTER VACCINE Unknown Completed [facility] Influenza Virus Vaccine,quad Im,preserve Free 65+ (FLUAD) Unknown Completed [facility] Influenza High Dose Unknown Completed [facility] SARS-COV-2 COVID-19 MODERNA 12+ YRS VACCINE Unknown Completed [facility] SARS-COV-2 COVID-19 MODERNA 0.25ML BOOSTER VACCINE Unknown Completed [facility] Influenza Virus Vaccine,quad Im,preserve Free 65+ (FLUAD) Unknown Completed [facility] Influenza High Dose Unknown Completed [facility] SARS-COV-2 COVID-19 MODERNA 12+ YRS VACCINE Unknown Completed [facility] SARS-COV-2 COVID-19 MODERNA 0.25ML BOOSTER VACCINE Unknown Completed [facility] Influenza Virus Vaccine,quad Im,preserve Free 65+ (FLUAD) Unknown Completed [facility] Influenza High Dose Unknown Completed [facility] SARS-COV-2 COVID-19 MODERNA 12+ YRS VACCINE Unknown Completed [facility] SARS-COV-2 COVID-19 MODERNA 0.25ML BOOSTER VACCINE Unknown Completed [facility] Influenza Virus Vaccine,quad Im,preserve Free 65+ (FLUAD) Unknown Completed [facility] Influenza High Dose Unknown Completed [facility] SARS-COV-2 COVID-19 MODERNA 12+ YRS VACCINE Unknown Completed [facility] SARS-COV-2 COVID-19 MODERNA 0.25ML BOOSTER VACCINE Unknown Completed [facility] Influenza Virus Vaccine,quad Im,preserve Free 65+ (FLUAD) Unknown Completed [facility] Influenza High Dose Unknown Completed [facility] SARS-COV-2 COVID-19 MODERNA 12+ YRS VACCINE Unknown Completed [facility] SARS-COV-2 COVID-19 MODERNA 0.25ML BOOSTER VACCINE Unknown Completed [facility] Influenza Virus Vaccine,quad Im,preserve Free 65+ (FLUAD) Unknown Completed [facility] Influenza High Dose Unknown Completed [facility] SARS-COV-2 COVID-19 MODERNA 12+ YRS VACCINE Unknown Completed [facility] SARS-COV-2 COVID-19 MODERNA 0.25ML BOOSTER VACCINE Unknown Completed [facility] Influenza Virus Vaccine,quad Im,preserve Free 65+ (FLUAD) Unknown Completed [facility] Influenza High Dose Unknown Completed [facility] SARS-COV-2 COVID-19 MODERNA 12+ YRS VACCINE Unknown Completed [facility] SARS-COV-2 COVID-19 MODERNA 0.25ML BOOSTER VACCINE Unknown Completed [facility] Influenza Virus Vaccine,quad Im,preserve Free 65+ (FLUAD) Unknown Completed [facility] Influenza High Dose Unknown Completed [facility] SARS-COV-2 COVID-19 MODERNA 12+ YRS VACCINE Unknown Completed [facility] SARS-COV-2 COVID-19 MODERNA 0.25ML BOOSTER VACCINE Unknown Completed [facility] Influenza Virus Vaccine,quad Im,preserve Free 65+ (FLUAD) Unknown Completed [facility] Influenza High Dose Unknown Completed [facility] SARS-COV-2 COVID-19 MODERNA 12+ YRS VACCINE Unknown Completed [facility] SARS-COV-2 COVID-19 MODERNA 0.25ML BOOSTER VACCINE Unknown Completed [facility] Influenza Virus Vaccine,quad Im,preserve Free 65+ (FLUAD) Unknown Completed [facility] Influenza High Dose Unknown Completed [facility] SARS-COV-2 COVID-19 MODERNA 12+ YRS VACCINE Unknown Completed [facility] SARS-COV-2 COVID-19 MODERNA 0.25ML BOOSTER VACCINE Unknown Completed [facility] Influenza Virus Vaccine,quad Im,preserve Free 65+ (FLUAD) Unknown Completed [facility] Influenza High Dose Unknown Completed [facility] SARS-COV-2 COVID-19 MODERNA 12+ YRS VACCINE Unknown Completed [facility] SARS-COV-2 COVID-19 MODERNA 0.25ML BOOSTER VACCINE Unknown Completed [facility] Influenza Virus Vaccine,quad Im,preserve Free 65+ (FLUAD) Unknown Completed [facility] Influenza High Dose Unknown Completed [facility] SARS-COV-2 COVID-19 MODERNA 12+ YRS VACCINE Unknown Completed [facility] SARS-COV-2 COVID-19 MODERNA 0.25ML BOOSTER VACCINE Unknown Completed [facility] Influenza Virus Vaccine,quad Im,preserve Free 65+ (FLUAD) Unknown Completed [facility] Influenza, High-Dose, Trivalent, PF (FLUZONE) Unknown Completed [facility] SARS-COV-2 COVID-19 MODERNA 12+ YRS VACCINE Unknown Completed [facility] SARS-COV-2 COVID-19 MODERNA 0.25ML BOOSTER VACCINE Unknown Completed [facility] Influenza Virus Vaccine,quad Im,preserve Free 65+ (FLUAD) Unknown Completed [facility] Vital Signs Vital Name Observation Time Observation Value Comments S ource Systolic blood pressure 2024-04-19 00:00:00 130 mm[Hg] [facility] Diastolic blood pressure 2024-04-19 00:00:00 76 mm[Hg] [facility] Heart rate 2024-04-19 00:00:00 65 /min [facility] Body temperature 2024-04-19 00:00:00 36.56 Alee [facility] Respiratory rate 2024-04-19 00:00:00 20 /min [facility] Oxygen saturation in Arterial blood by Pulse oximetry 2024-04-19 00:00:00 99 /min [facility] Body height 2024-04-18 21:30:00 188 cm [facility] Body weight 2024-04-18 21:30:00 75.751 kg [facility] BMI 2024-04-18 21:30:00 21.44 kg/m2 [facility] Systolic blood pressure 2024-04-04 17:54:00 139 mm[Hg] [facility] Diastolic blood pressure 2024-04-04 17:54:00 76 mm[Hg] [facility] Heart rate 2024-04-04 17:54:00 67 /min [facility] Oxygen saturation in Arterial blood by Pulse oximetry 2024-04-04 17:54:00 97 /min [facility] Respiratory rate 2024-04-04 17:51:00 18 /min [facility] Body height 2024-04-04 17:51:00 188 cm [facility] Body weight 2024-04-04 17:51:00 76.114 kg [facility] BMI 2024-04-04 17:51:00 21.54 kg/m2 [facility] Systolic blood pressure 2023-12-03 18:00:00 145 mm[Hg] [facility] Diastolic blood pressure 2023-12-03 18:00:00 73 mm[Hg] [facility] Heart rate 2023-12-03 18:00:00 58 /min [facility] Oxygen saturation in Arterial blood by Pulse oximetry 2023-12-03 18:00:00 96 /min [facility] Respiratory rate 2023-12-03 17:58:00 18 /min [facility] Body height 2023-12-03 17:58:00 182.9 cm [facility] Body weight 2023-12-03 17:58:00 78.926 kg [facility] BMI 2023-12-03 17:58:00 23.60 kg/m2 [facility] Systolic blood pressure 2023-08-05 16:14:00 133 mm[Hg] [facility] Diastolic blood pressure 2023-08-05 16:14:00 83 mm[Hg] [facility] Heart rate 2023-08-05 16:14:00 66 /min [facility] Body height 2023-08-05 16:14:00 188 cm [facility] Body weight 2023-08-05 16:14:00 78.926 kg [facility] BMI 2023-08-05 16:14:00 22.34 kg/m2 [facility] Oxygen saturation in Arterial blood by Pulse oximetry 2023-08-05 16:14:00 98 /min [facility] Systolic blood pressure 2023-05-31 19:01:00 115 mm[Hg] [facility] Diastolic blood pressure 2023-05-31 19:01:00 67 mm[Hg] [facility] Heart rate 2023-05-31 19:01:00 75 /min [facility] Respiratory rate 2023-05-31 19:01:00 24 /min [facility] Body weight 2023-05-31 19:01:00 77.565 kg [facility] BMI 2023-05-31 19:01:00 21.96 kg/m2 [facility] Oxygen saturation in Arterial blood by Pulse oximetry 2023-05-31 19:01:00 97 /min [facility] Systolic blood pressure 2023-04-27 18:43:00 103 mm[Hg] [facility] Diastolic blood pressure 2023-04-27 18:43:00 79 mm[Hg] [facility] Heart rate 2023-04-27 18:43:00 72 /min [facility] Body temperature 2023-04-27 18:43:00 36.89 [place] [facility] Respiratory rate 2023-04-27 18:43:00 18 /min [facility] Body height 2023-04-27 18:43:00 188 cm Univ [facility] Body weight 2023-04-27 18:43:00 75.751 kg Univ [facility] BMI 2023-04-27 18:43:00 21.44 kg/m2 [facility] Oxygen saturation in Arterial blood by Pulse oximetry 2023-04-27 18:43:00 97 /min [facility] Systolic blood pressure 2023-01-27 18:46:00 114 mm[Hg] [facility] Diastolic blood pressure 2023-01-27 18:46:00 67 mm[Hg] [facility] Heart rate 2023-01-27 18:46:00 69 /[facility] 2023-01-27 18:46:00 185.4 cm Univ [facility] Body weight 2023-01-27 18:46:00 77.747 kg Univ [facility] BMI 2023-01-27 18:46:00 22.61 kg/m2 Univ [facility] Oxygen saturation in Arterial blood by Pulse oximetry 2023-01-27 18:46:00 96 /min [facility] Systolic blood pressure 2022-12-30 15:06:00 149 mm[Hg] [facility] Diastolic blood pressure 2022-12-30 15:06:00 80 mm[Hg] [facility] Heart rate 2022-12-30 15:06:00 64 /min [facility] Body height 2022-12-30 15:06:00 188 cm [facility] Body weight 2022-12-30 15:06:00 78.291 kg [facility] BMI 2022-12-30 15:06:00 22.16 kg/m2 [facility] O[facility] saturation in Arterial blood by Pulse oximetry 2022-12-30 15:06:00 98 /min [facility] Systolic blood pressure 2022-10-20 19:08:00 127 mm[Hg] [facility] Diastolic blood pressure 2022-10-20 19:08:00 63 mm[Hg] [facility] Heart rate 2022-10-20 19:08:00 66 /min Unive [facility] Respiratory rate 2022-10-20 19:08:00 20 /min [facility] Body height 2022-10-20 19:08:00 188 cm [facility] Body weight 2022-10-20 19:08:00 7.076 kg Univ [facility] BMI 2022-10-20 19:08:00 2.00 kg/m2 Unive [facility] Oxygen saturation in Arterial blood by Pulse oximetry 2022-10-20 19:08:00 95 /min [facility] Systolic blood pressure 2022-09-22 17:19:00 128 mm[Hg] [facility] Diastolic blood pressure 2022-09-22 17:19:00 65 mm[Hg] [facility] Heart rate 2022-09-22 17:19:00 63 /min [facility] Body height 2022-09-22 17:19:00 188 cm [facility] Body weight 2022-09-22 17:19:00 78.79 kg [facility] BMI 2022-09-22 17:19:00 22.30 kg/m2 [facility] Oxygen saturation in Arterial blood by Pulse oximetry 2022-09-22 17:19:00 99 /min [facility] Systolic blood pressure 2022-09-15 21:54:00 133 mm[Hg] [facility] Diastolic blood pressure 2022-09-15 21:54:00 66 mm[Hg] [facility] Heart rate 2022-09-15 21:54:00 73 /min Unive [facility] Respiratory rate 2022-09-15 21:54:00 19 /min [facility] Oxygen saturation in Arterial blood by Pulse oximetry 2022-09-15 21:54:00 98 /min [facility] Body height 2022-09-15 19:08:00 188 cm [facility] Body weight 2022-09-15 19:08:00 75.751 kg [facility] BMI 2022-09-15 19:08:00 21.44 kg/m2 [facility] Body temperature 2022-09-15 19:08:00 36.5 Alee [facility] Systolic blood pressure 2022-09-14 19:45:00 93 mm[Hg] [facility] Diastolic blood pressure 2022-09-14 19:45:00 53 mm[Hg] [facility] Heart rate 2022-09-14 19:45:00 69 /min Unive [facility] Respiratory rate 2022-09-14 19:03:00 19 /min [facility] Body height 2022-09-14 19:03:00 188 cm [facility] Body weight 2022-09-14 19:03:00 77.021 kg [facility] BMI 2022-09-14 19:03:00 21.80 kg/m2 [facility] Oxygen saturation in Arterial blood by Pulse oximetry 2022-09-14 19:03:00 91 /min [facility] Systolic blood pressure 2022-08-31 20:30:00 98 mm[Hg] [facility] Diastolic blood pressure 2022-08-31 20:30:00 58 mm[Hg] [facility] Heart rate 2022-08-31 20:30:00 72 /min Unive [facility] Respiratory rate 2022-08-31 20:26:00 19 /min [facility] Body height 2022-08-31 20:26:00 188 cm Univ [facility] Body weight 2022-08-31 20:26:00 78.926 kg Univ [facility] BMI 2022-08-31 20:26:00 22.34 kg/m2 [facility] Oxygen saturation in Arterial blood by Pulse oximetry 2022-08-31 20:26:00 91 /min [facility] Systolic blood pressure 2022-07-13 14:46:00 118 mm[Hg] [facility] Diastolic blood pressure 2022-07-13 14:46:00 68 mm[Hg] [facility] Heart rate 2022-07-13 14:46:00 69 /min Unive [facility] Respiratory rate 2022-07-13 14:46:00 19 /min [facility] Body height 2022-07-13 14:46:00 188 cm [facility] Body weight 2022-07-13 14:46:00 76.975 kg [facility] BMI 2022-07-13 14:46:00 21.79 kg/m2 [facility] Oxygen saturation in Arterial blood by Pulse oximetry 2022-07-13 14:46:00 94 /min [facility] Systolic blood pressure 2022-05-11 13:38:00 148 mm[Hg] [facility] Diastolic blood pressure 2022-05-11 13:38:00 78 mm[Hg] [facility] Heart rate 2022-05-11 13:38:00 60 /min [facility] Respiratory rate 2022-05-11 13:38:00 18 /min [facility] Oxygen saturation in Arterial blood by Pulse oximetry 2022-05-11 13:38:00 99 /min [facility] Body temperature 2022-05-11 13:36:00 36.78 Alee [facility] Body weight 2022-05-11 13:36:00 78.336 kg [facility] BMI 2022-05-11 13:36:00 22.17 kg/m2 [facility] Systolic blood pressure 2022-04-27 13:59:00 175 mm[Hg] [facility] Diastolic blood pressure 2022-04-27 13:59:00 94 mm[Hg] [facility] Heart rate 2022-04-27 13:59:00 69 /min [facility] Oxygen saturation in Arterial blood by Pulse oximetry 2022-04-27 13:59:00 99 /min [facility] Body temperature 2022-04-27 13:57:00 36.39 Alee [facility] Respiratory rate 2022-04-27 13:57:00 19 /min [facility] Body height 2022-04-27 13:57:00 188 cm [facility] Body weight 2022-04-27 13:57:00 77.61 kg [facility] BMI 2022-04-27 13:57:00 21.97 kg/m2 [facility] Procedures Procedure Date / Time Performed Performing Clinician Source URINALYSIS 2024-04-18 22:35:00 Alistair Taylor [facility] XR CHEST 1 VW 2024-04-18 22:20:25 [facility] LIPASE 2024-04-18 21:58:00 [facility] MAGNESIUM 2024-04-18 21:58:00 [facility] TROPONIN I 2024-04-18 21:58:00 [facility] COMP. METABOLIC PANEL (18262) 2024-04-18 21:58:00 [facility] CBC WITH DIFF 2024-04-18 21:58:00 Brandon [facility] N-TERMINAL PRO-BNP 2024-04-18 21:58:00 Brandon [facility] TRANSTHORACIC ECHO (TTE) COMPLETE W/ CONTRAST 2023-12-27 19:01:13 Fay Barrios [facility] ASSIGNMENT OF BENEFITS 2023-08-05 15:31:33 Docto r Unassigned, [place] [facility] FLU VACC(),65+YR,0. 5 ML,IM,ADJUVANTED,QUAD([place] UAD) 2023-05-31 19:11:37 Fay Barrios [facility] TROPONIN I 2023-04-27 19:35:00 Fazal Young [facility] COMP. METABOLIC PANEL ([id number]) 2023-04-27 19:35:00 Fazal Young [facility] CBC WITH DIFF 2023-04-27 19:35:00 Fazal Young [facility] N-TERMINAL PRO-BNP 2023-04-27 19:35:00 Mauricio Young [facility] XR CHEST 1 VW 2023-04-27 19:02:15 Fazal Young [facility] CONSENT/REFUSAL FOR DIAGNOSIS AND TREATMENT 2023-04-27 17:58:50 Doctor Unassigned, [place] [facility] BASIC METABOLIC PANEL (NA, K, CL, CO2, GLUCOSE, BUN, CREATININE, CA) 2022-09-15 21:54:00 Prisca Cheung [facility] URINALYSIS 2022-09-15 19:58:00 Prisca Cheung [facility] TROPONIN I 2022-09-15 19:39:00 Prisca Cheung [facility] COMP. METABOLIC PANEL ([id number]) 2022-09-15 19:39:00 Prisca Cheung [facility] CBC WITH DIFF 2022-09-15 19:39:00 Prisca Cheung [facility] CONSENT/REFUSAL FOR DIAGNOSIS AND TREATMENT 2022-09-15 18:43:04 Doctor Unassigned, [place] [facility] BASIC METABOLIC PANEL (NA, K, CL, CO2, GLUCOSE, BUN, CREATININE, CA) 2022-09-14 20:00:00 Joana Monge [facility] N-TERMINAL PRO-BNP 2022-09-14 20:00:00 Joana Monge [facility] FLU VACC(),65+YR,0. 5 ML,IM,ADJUVANTED,QUAD([place] UAD) 2022-05-11 14:21:39 Joana Monge [facility] REFERRAL- REQUEST/RESPONSE 2022-01-22 05:01:00 Doctor Unassigned, [place] [facility] Encounters Start Date/Time End Date/Time Encounter Type Admission Type Attending [facility] Facility Care Department Encounter ID Source 2021-05-26 12:45:58 Emergency [facility] [id number] [facility] 2021-05-25 11:52:53 Emergency [facility] [id number] [facility] 2021-05-25 08:49:28 Emergency [facility] [id number] [facility] 2024-04-20 12:59:54 2024-04-20 23:59:00 Outpatient R GENESIS PUENTES [facility] [id number] [facility] 2024-04-20 12:59:54 2024-04-20 23:59:00 Hospital Encounter Genesis Puentes [facility] 1..840.114 350.1.13.10 4.2.7.2.686 [id number] [facility] 2024-04-18 16:32:00 2024-04-18 19:32:00 Emergency X TAMARAPELON, ERNAALISTAIR SINGH [facility] ERT [id number] [facility] 2024-04-18 16:32:00 2024-04-18 19:32:00 Emergency TamaraAlistair groves [facility] AT [facility] 1.2.840.114 350.1.13.10 4.2.7.2.686 [id number] [facility] 2024-04-11 00:00:00 2024-04-12 09:06:52 Telephone Fay Barrios [facility] 1.2.840.114 350.1.13.10 4.2.7.2.686 [id number] [facility] 2024-04-05 09:45:00 2024-04-05 10:00:00 Jailer/Training Officer Visit 2, Adc Lab Fay Barrios 2, Adc Lab [facility] 1.2.840.114 350.1.13.10 4.2.7.2.686 [id number] [facility] 2024-04-05 09:45:00 2024-04-05 09:45:00 Outpatient R FAY BARRIOS [facility] [id number] [facility] 2024-04-04 13:00:00 2024-04-04 13:05:21 Outpatient R FAY BARRIOS [facility] [id number] [facility] 2024-04-04 13:00:00 2024-04-04 13:05:21 Office Visit Fay Barrios [facility] 1.2.840.114 350.1.13.10 4.2.7.2.686 [id number] [facility] 2024-03-02 13:00:00 2024-03-02 23:59:00 Outpatient R FAY BARRIOS [facility] [id number] [facility] 2024-03-02 13:00:00 2024-03-02 23:59:00 Hospital Encounter Fay Barrios [facility] 1.2.840.114 350.1.13.10 4.2.7.2.686 [id number] [facility] 2024-02-18 00:00:00 2024-02-18 13:49:11 Telephone Fay Barrios [facility] 1.2.840.114 350.1.13.10 4.2.7.2.686 [id number] [facility] 2024-02-03 11:30:00 2024-02-03 11:30:00 Outpatient R GENESIS PUENTES [facility] [id number] [facility] 2024-01-13 00:00:00 2024-01-13 13:22:24 Telephone Fay Barrios [facility] 1.2.840.114 350.1.13.10 4.2.7.2.686 [id number] [facility] 2024-01-03 00:00:00 2024-01-03 12:52:51 Telephone Fay Barrios [facility] 1.2.840.114 350.1.13.10 4.2.7.2.686 [id number] [facility] 2023-12-27 12:10:44 2023-12-27 23:59:00 Outpatient R FAY BARRIOS [facility] [id number] [facility] 2023-12-27 12:10:44 2023-12-27 23:59:00 Hospital Encounter Fay Barrios [facility] 1.2.840.114 350.1.13.10 4.2.7.2.686 [id number] [facility] 2023-12-03 13:00:00 2023-12-03 13:40:15 Outpatient R FAY BARRIOS [facility] [id number] [facility] 2023-12-03 13:00:00 2023-12-03 13:40:15 Office Visit Fay Barrios [facility] 1.2.840.114 350.1.13.10 4.2.7.2.686 [id number] [facility] 2023-11-03 00:00:00 2023-11-03 23:59:00 Outpatient R GENESIS PUENTES [facility] [id number] [facility] 2023-11-03 00:00:00 2023-11-03 23:59:00 Hospital Encounter Genesis Puentes [facility] 1.2840.114 350.1.13.10 4.2.7.2.686 [id number] [facility] 2023-08-11 00:00:00 2023-08-11 00:00:00 Telephone [facility] 1.2.840.114 350.1.13.10 4.2.7.2.686 [id number] [facility] 2023-08-11 00:00:00 2023-08-11 00:00:00 Patient Secure Msg Doctor Unassigned, [place] [facility] 1.840.114 350.1.13.10 4.2.7.2.686 [id number] [facility] 2023-08-05 09:31:32 2023-08-05 23:59:00 Outpatient R GENESIS PUENTES [facility] [id number] [facility] 2023-08-05 09:31:32 2023-08-05 23:59:00 Hospital Encounter [facility] 1..840.114 350.1.13.10 4.2.7.2.686 [id number] [facility] 2023-08-05 11:00:00 2023-08-05 11:15:00 Jailer/Training Officer Visit 2, Adc Lab Genesis Puentes [facility] 1.2.840.114 350.1.13.10 4.2.7.2.686 [id number] [facility] 2023-08-05 10:30:00 2023-08-05 10:44:27 Office Visit Fay Barrios [facility] 1.2.840.114 350.1.13.10 4.2.7.2.686 [id number] [facility] 2023-05-31 13:00:00 2023-05-31 13:34:55 Outpatient R FAY BARRIOS [facility] [id number] [facility] 2023-05-31 13:00:00 2023-05-31 13:34:55 Office Visit Fay Barrios [facility] 1.2.840.114 350.1.13.10 4.2.7.2.686 [id number] [facility] 2023-05-19 00:00:00 2023-05-19 00:00:00 Refill Fay Barrios [facility] 1.2.840.114 350.1.13.10 4.2.7.2.686 [id number] [facility] 2023-04-27 13:44:00 2023-04-27 16:33:00 Emergency X FAZAL YOUNG [facility] ERT [id number] [facility] 2023-04-27 13:44:00 2023-04-27 16:33:00 Emergency Fazal Young [facility] 1.2.840.114 350.1.13.10 4.2.7.2.686 [id number] [facility] 2023-01-27 14:00:00 2023-01-27 14:30:00 Office Visit Fay Barrios [facility] 1..840.114 350.1.13.10 4.2.7.2.686 [id number] [facility] 2023-01-27 14:00:00 2023-01-27 14:00:00 Outpatient R FAY BARRIOS [facility] [id number] [facility] 2023-01-20 00:00:00 2023-01-20 00:00:00 Telephone Fay Barrios [facility] 1.840.114 350.1.13.10 4.2.7.2.686 [id number] [facility] 2023-01-14 09:09:27 2023-01-14 09:15:00 Outpatient R DANYEL THURMAN [facility] [id number] [facility] 2022-12-30 11:20:00 2022-12-30 11:20:00 Office Visit Joana Monge [facility] 1.840.114 350.1.13.10 4.2.7.2.686 [id number] [facility] 2022-12-30 11:20:00 2022-12-30 10:27:51 Outpatient R JOANA MONGE [facility] [id number] [facility] 2022-10-29 00:00:00 2022-10-29 00:00:00 Refill Fay Barrios [facility] 1..840.114 350.1.13.10 4.2.7.2.686 [id number] [facility] 2022-10-26 00:00:00 2022-10-26 00:00:00 Patient Secure Msg Doctor Unassigned, [place] [facility] 1.84.114 350.1.13.10 4.2.7.2.686 [id number] [facility] 2022-10-20 14:00:00 2022-10-20 14:41:36 Outpatient R FAY BARRIOS [facility] [id number] [facility] 2022-10-20 14:00:00 2022-10-20 14:41:36 Office Visit Fay BarriosRah [facility] 1.2.840.114 350.1.13.10 4.2.7.2.686 [id number] [facility] 2022-10-12 08:40:00 2022-10-12 08:40:00 Outpatient R JOANA MONGE [facility] [id number] [facility] 2022-09-29 10:30:00 2022-09-29 11:05:59 Outpatient R FAY BARRIOS [facility] [id number] [facility] 2022-09-29 10:30:00 2022-09-29 11:05:59 Nurse Visit Visit, Adc Nurse Fay Barrios [facility] 1.2.840.114 350.1.13.10 4.2.7.2.686 [id number] [facility] 2022-09-29 00:00:00 2022-09-29 00:00:00 Telephone Fay Barrios [facility] 1.2.840.114 350.1.13.10 4.2.7.2.686 [id number] [facility] 2022-09-28 09:30:00 2022-09-28 09:30:00 Outpatient R CYDNEY GUADALUPE [facility] [id number] [facility] 2022-09-22 11:20:00 2022-09-22 11:42:15 Outpatient R JOANA MONGE [facility] [id number] [facility] 2022-09-22 11:20:00 2022-09-22 11:42:15 Office Visit Joana Monge [facility] 1.2.840.114 350.1.13.10 4.2.7.2.686 [id number] [facility] 2022-09-15 13:11:00 2022-09-15 16:53:00 Emergency X PRISCA CHEUNG [facility] ERT [id number] [facility] 2022-09-15 13:11:00 2022-09-15 16:53:00 Emergency Prisca Cheung [facility] 1.2.840.114 350.1.13.10 4.2.7.2.686 [id number] [facility] 2022-09-15 00:00:00 2022-09-15 00:00:00 Telephone Joana Monge [facility] 1.2.840.114 350.1.13.10 4.2.7.2.686 [id number] [facility] 2022-09-15 00:00:00 2022-09-15 00:00:00 Telephone Joana Monge [facility] 1.2.840.114 350.1.13.10 4.2.7.2.686 [id number] [facility] 2022-09-15 00:00:00 2022-09-15 00:00:00 Telephone Joana Monge [facility] 1.2.840.114 350.1.13.10 4.2.7.2.686 [id number] [facility] 2022-09-15 00:00:00 2022-09-15 00:00:00 Telephone СергейtzJoana [facility] 1.2.840.114 350.1.13.10 4.2.7.2.686 [id number] [facility] 2022-09-14 14:15:00 2022-09-14 14:15:00 Jailer/Training Officer Visit 2, Adc Lab Joana Monge [facility] 1.2.840.114 350.1.13.10 4.2.7.2.686 [id number] [facility] 2022-09-14 13:00:00 2022-09-14 13:49:38 Outpatient R JOANA MONGE [facility] [id number] [facility] 2022-09-14 13:00:00 2022-09-14 13:49:38 Office Visit Joana Monge [facility] 1.2.840.114 350.1.13.10 4.2.7.2.686 [id number] [facility] 2022-09-08 10:30:00 2022-09-08 10:45:00 Jailer/Training Officer Visit 2, Adc Lab Joana Monge [facility] 1.2.840.114 350.1.13.10 4.2.7.2.686 [id number] [facility] 2022-09-08 10:30:00 2022-09-08 10:36:56 Outpatient R JOANA MONGE [facility] [id number] [facility] 2022-09-08 00:00:00 2022-09-08 00:00:00 Telephone Cydney Guadalupe [facility] 1.2.840.114 350.1.13.10 4.2.7.2.686 [id number] [facility] 2022-08-31 14:30:00 2022-08-31 14:53:41 Outpatient R CYDNEY GUADALUPE [facility] [id number] [facility] 2022-08-31 14:30:00 2022-08-31 14:53:41 Office Visit Cydney Guadalupe [facility] 1.2.840.114 350.1.13.10 4.2.7.2.686 [id number] [facility] 2022-08-25 00:00:00 2022-08-25 00:00:00 Telephone Fay Barrios [facility] 1.2.840.114 350.1.13.10 4.2.7.2.686 [id number] [facility] 2022-07-31 00:00:00 2022-07-31 00:00:00 Telephone Joana Monge [facility] 1.2.840.114 350.1.13.10 4.2.7.2.686 [id number] [facility] 2022-07-24 00:00:00 2022-07-24 00:00:00 Telephone Joana Monge [facility] 1.2.840.114 350.1.13.10 4.2.7.2.686 [id number] [facility] 2022-07-17 09:40:00 2022-07-17 09:40:00 Outpatient R DANYEL THURMAN [facility] [id number] [facility] 2022-07-16 09:24:27 2022-07-16 09:54:00 Outpatient R LIZEMILY DANYEL [facility] [id number] [facility] 2022-07-13 09:45:00 2022-07-13 09:45:00 Jailer/Training Officer Visit 2, Adc Lab Joana Monge [facility] 1.2.840.114 350.1.13.10 4.2.7.2.686 [id number] [facility] 2022-07-13 08:40:00 2022-07-13 09:12:53 Outpatient R JOANA MONGE [facility] [id number] [facility] 2022-07-13 08:40:00 2022-07-13 09:12:53 Office Visit Joana Monge [facility] 1.2.840.114 350.1.13.10 4.2.7.2.686 [id number] [facility] 2022-05-14 00:00:00 2022-05-14 00:00:00 Telephone Joana Monge [facility] 1.2.840.114 350.1.13.10 4.2.7.2.686 [id number] [facility] 2022-05-11 10:30:00 2022-05-11 10:45:00 Jailer/Training Officer Visit 2, Adc Lab Joana Monge [facility] 1.2.840.114 350.1.13.10 4.2.7.2.686 [id number] [facility] 2022-05-11 08:40:00 2022-05-11 09:30:34 Outpatient R JOANA MONGE [facility] [id number] [facility] 2022-05-11 08:40:00 2022-05-11 09:30:34 Office Visit Joana Monge [facility] 1.2.840.114 350.1.13.10 4.2.7.2.686 [id number] [facility] 2022-05-01 00:00:00 2022-05-01 00:00:00 Telephone Fay Barrios [facility] 1.2.840.114 350.1.13.10 4.2.7.2.686 [id number] [facility] 2022-04-27 09:30:00 2022-04-27 09:30:00 Office Visit Fay Barrios [facility] 1.2.840.114 350.1.13.10 4.2.7.2.686 [id number] [facility] 2022-04-27 09:15:00 2022-04-27 09:30:00 Jailer/Training Officer Visit 2, Adc Lab Fay Barrios [facility] 1.2.840.114 350.1.13.10 4.2.7.2.686 [id number] [facility] 2022-04-27 09:30:00 2022-04-27 09:16:55 Outpatient R FAY BARRIOS [facility] [id number] [facility] 2022-04-10 09:53:58 2022-04-10 23:59:00 Outpatient R DANYEL THURMAN [facility] [id number] [facility] 2022-01-29 00:00:00 2022-01-29 00:00:00 Telephone Fay Barrios [facility] 1.2.840.114 350.1.13.10 4.2.7.2.686 [id number] [facility] 2022-01-23 14:00:00 2022-01-23 14:15:00 Jailer/Training Officer Visit 2, Adc Lab Fay Barrios [facility] 1.2.840.114 350.1.13.10 4.2.7.2.686 [id number] [facility] 2022-01-23 14:00:00 2022-01-23 14:00:00 Outpatient R FAY BARRIOS [facility] [id number] [facility] 2022-01-23 13:00:00 2022-01-23 13:12:33 Outpatient R FAY BARRIOS [facility] [id number] [facility] 2022-01-23 13:00:00 2022-01-23 13:12:33 Office Visit Fay Barrios [facility] 1.840.114 350.1.13.10 4.2.7.2.686 [id number] [facility] 2022-01-23 13:00:00 2022-01-23 13:12:33 Outpatient R DENIS FAY [facility] [id number] [facility] 2022-01-22 00:00:00 2022-01-22 00:00:00 Orders Only Doctor Unassigned, [place] [facility] 1..840.114 350.1.13.10 4.2.7.2.686 [id number] [facility] 2022-01-02 09:25:12 2022-01-02 23:59:00 Outpatient R DANYEL THURMAN [facility] [id number] [facility] 2021-12-26 09:34:10 2021-12-26 23:59:00 Outpatient R FAY BARRIOS [facility] [id number] [facility] 2021-12-26 10:00:00 2021-12-26 10:00:00 Outpatient R FAY BARRIOS [facility] [id number] [facility] 2021-12-26 09:15:00 2021-12-26 09:30:00 Jailer/Training Officer Visit 2, Adc Lab Fay Barrios [facility] 1..840.114 350.1.13.10 4.2.7.2.686 [id number] [facility] 2021-12-10 00:00:00 2021-12-10 00:00:00 Telephone Fay BarriosDarleenRah [facility] 1.2.840.114 350.1.13.10 4.2.7.2.686 [id number] [id number] [facility] 2021-12-02 10:00:00 2021-12-02 11:44:27 Outpatient R FAY BARRIOS [facility] [id number] [facility] 2021-12-02 10:00:00 2021-12-02 11:44:27 Office Visit Fay Barrios [facility] 1.2.840.114 350.1.13.10 4.2.7.2.686 [id number] [facility] 2021-11-13 00:00:00 2021-11-13 00:00:00 Telephone Fay Barrios [facility] 1.2.840.114 350.1.13.10 4.2.7.2.686 [id number] [facility] 2021-11-06 13:11:00 2021-11-06 15:59:00 Emergency X ANNA GOODMAN [facility] [id number] [facility] 2021-11-06 13:11:00 2021-11-06 15:59:00 Emergency Anna Goodman Yaman [facility] 1.2840.114 350.1.13.10 4.2.7.2.686 [id number] [facility] 2021-07-22 10:15:00 2021-07-22 10:30:00 Jailer/Training Officer Visit Pob, Adc Lab Main Fay BarriosRah [facility] 1.2840.114 350.1.13.10 4.2.7.2.686 [id number] [facility] 2021-07-22 10:15:00 2021-07-22 10:15:00 Outpatient R FAY BARRIOS [facility] [id number] [facility] 2021-07-22 00:00:00 2021-07-22 00:00:00 Orders Only Doctor Unassigned, [place] [facility] 1.2.114 350.1.13.10 4.2.7.2.686 [id number] [facility] 2021-07-02 00:00:00 2021-07-02 00:00:00 Telephone Fay Barrios [facility] 1.284.114 350.1.13.10 4.2.7.2.686 [id number] [facility] 2021-06-30 14:00:00 2021-06-30 14:00:00 Outpatient R JESUS ALBERTO BARRIOSAMARA [facility] [id number] [facility] 2021-06-30 14:00:00 2021-06-30 14:00:00 Outpatient R JESUS ALBERTO BARRIOSAMARA [facility] [id number] [facility] 2021-06-30 12:08:53 2021-06-30 12:23:53 Jailer/Training Officer Visit Pob, Adc Lab Main Fay Barrios [facility] 1.284.114 350.1.13.10 4.2.7.2.686 [id number] [facility] 2021-06-30 11:09:32 2021-06-30 11:49:17 Office Visit Fay Barrios [facility] 1.2840.114 350.1.13.10 4.2.7.2.686 [id number] 059 [id number] [facility] 2021-06-30 00:00:00 2021-06-30 00:00:00 Orders Only Doctor Unassigned, [place] [facility] 1.2.840.114 350.1.13.10 4.2.7.2.686 [id number] [id number] [facility] 2021-06-10 10:14:45 2021-06-10 23:59:00 Hospital Encounter Danyel Thurman [facility] 1.2.840.114 350.1.13.10 4.2.7.2.686 [id number] [facility] 2021-06-10 11:00:00 2021-06-10 11:00:00 [facility] [id number] [facility] 2021-06-10 11:00:00 2021-06-10 10:50:28 Outpatient LIBAN LANDIS [facility] [id number] [facility] 2021-06-10 10:50:21 2021-06-10 10:50:28 Imm/Inj Visit Nurse, Domenic Pouyen Immunizatio Liban Castillo [facility] 1.2.840.114 350.1.13.10 4.2.7.2.686 [id number] [facility] 2021-05-01 09:30:00 2021-05-01 09:30:00 Outpatient NITZA BERNABE [facility] [id number] [facility] 2021-04-28 13:00:00 2021-04-28 13:00:00 Outpatient NITZA BERNABE [facility] [id number] [facility] 2021-03-25 09:30:00 2021-03-25 09:30:00 Outpatient RUPESH MESSINA [facility] [id number] [facility] 2021-03-18 10:45:03 2021-03-18 23:59:00 Hospital Encounter Danyel Thurman [facility] 1.2.840.114 350.1.13.10 4.2.7.2.686 [id number] [facility] 2021-03-18 11:00:00 2021-03-18 11:00:00 Outpatient R DANYEL THURMAN [facility] [id number] [facility] 2021-03-06 00:00:00 2021-03-06 00:00:00 Patient Secure Msg Doctor Unassigned, [place] [facility] 1.2840.114 350.1.13.10 4.2.7.2.686 [id number] [facility] 2021-03-04 11:00:00 2021-03-04 11:00:00 Outpatient R CUCA [facility] [id number] [facility] 2021-02-25 12:05:00 2021-02-25 14:51:00 Emergency Alma Moctezuma [facility] 1.2.840.114 350.1.13.10 4.2.7.2.686 [id number] [facility] 2021-02-07 13:58:00 2021-02-08 16:35:00 Hospital Encounter Danyel Thurman Ashley Bonilla [facility] 1.2840.114 350.1.13.10 4.2.7.2.686 [id number] [facility] 2021-02-07 11:00:00 2021-02-07 11:00:00 Outpatient DANYEL CHATTERJEE [facility] [id number] [facility] 2021-02-05 00:00:00 2021-02-05 00:00:00 Telephone Lizemily Danyel [facility] 1.2840.114 350.1.13.10 4.2.7.2.686 [id number] [facility] 2021-01-14 12:44:58 2021-01-14 13:35:26 Office Visit Danyel Thurman [facility] 1.840.114 350.1.13.10 4.2.7.2.686 [id number] [facility] 2021-01-14 13:00:00 2021-01-14 13:00:00 Outpatient R DANYEL THURMAN [facility] [id number] [facility] 2021-01-14 00:00:00 2021-01-14 00:00:00 Orders Only Doctor Unassigned, [place] [facility] 1.840.114 350.1.13.10 4.2.7.2.686 [id number] [id number] [facility] 2021-01-07 00:00:00 2021-01-07 00:00:00 Telephone Laurel [facility] 1..114 350.1.13.10 4.2.7.2.686 [id number] 059 [id number] [facility] 2021-01-06 00:00:00 2021-01-06 00:00:00 Refill Laurel Shane [facility] Office Building 1.840.114 350.1.13.10 4.2.7.2.686 [id number] [facility] 2020-12-25 15:00:00 2020-12-25 15:00:00 Outpatient NITZA BERNABE [facility] [id number] [facility] 2020-12-19 14:00:00 2020-12-19 14:00:00 Outpatient LAUREL DOZIER [facility] [id number] [facility] 2020-12-19 13:39:36 2020-12-19 13:54:36 Jailer/Training Officer Visit 2, Adc Lab AlishaGabriella EarlLaurel [facility] 1.2.840.114 350.1.13.10 4.2.7.2.686 [id number] [facility] 2020-12-19 00:00:00 2020-12-19 00:00:00 Telephone SelmaaparnaGabriella EarlLaurel [facility] 1.2.840.114 350.1.13.10 4.2.7.2.686 [id number] [facility] 2020-12-17 00:00:00 2020-12-17 00:00:00 Telephone Nitza De Jesus [facility] 1.2840.114 350.1.13.10 4.2.7.2.686 [id number] [facility] 2020-12-13 00:00:00 2020-12-13 00:00:00 Telephone AlishaGabriella EarlLaurel [facility] 1.2.840.114 350.1.13.10 4.2.7.2.686 [id number] [facility] 2020-12-12 14:30:00 2020-12-12 14:30:00 Outpatient R LAUREL SHANE [facility] [id number] [facility] 2020-12-12 14:14:12 2020-12-12 14:29:12 Jailer/Training Officer Visit 2, Adc Lab AlishaGabriella EarlLaurel [facility] 1.2.840.114 350.1.13.10 4.2.7.2.686 [id number] [facility] 2020-12-12 00:00:00 2020-12-12 00:00:00 Orders Only Doctor Unassigned, [place] [facility] 1.2840.114 350.1.13.10 4.2.7.2.686 [id number] [facility] 2020-12-06 00:00:00 2020-12-06 00:00:00 Telephone Lulu Elliott Tod [facility] Building 1.2840.114 350.1.13.10 4.2.7.2.686 [id number] [facility] 2020-12-03 13:05:45 2020-12-03 13:20:45 Jailer/Training Officer Visit 2, Domenic Lab Rhonda [facility] Building 1.2840.114 350.1.13.10 4.2.7.2.686 [id number] [facility] 2020-12-03 13:00:00 2020-12-03 13:00:00 Outpatient R [facility] [id number] [facility] 2020-12-03 00:00:00 2020-12-03 00:00:00 [facility]ill [facility] 1.20.114 350.1.13.10 4.2.7.2.686 [id number] [facility] 2020-11-28 00:00:00 2020-11-28 00:00:00 Telephone [facility]ulu [facility] 1.2840.114 350.1.13.10 4.2.7.2.686 [id number] [facility] 2020-11-27 10:43:40 2020-11-27 10:58:40 Jailer/Training Officer Visit Pob, Domenic Lab Main Rhonda [facility] Building 1.20.114 350.1.13.10 4.2.7.2.686 [id number] [facility] 2020-11-27 10:45:00 2020-11-27 10:45:00 Outpatient CHAPIS ESPINOSA [facility] [id number] [facility] 2020-11-26 14:29:50 2020-11-26 14:44:50 Jailer/Training Officer Visit 2, Adc Lab Laurel Shane [facility] 1.2840.114 350.1.13.10 4.2.7.2.686 [id number] [facility] 2020-11-26 13:00:00 2020-11-26 13:00:00 Outpatient Allen FAY BARRIOS [facility] [id number] [facility] 2020-11-18 09:55:03 2020-11-18 10:10:03 Jailer/Training Officer Visit 2, Adc Lab Laurel Shane [facility] 1.0.114 350.1.13.10 4.2.7.2.686 [id number] [facility] 2020-11-18 10:00:00 2020-11-18 10:00:00 Outpatient LAUREL DOZIER [facility] [id number] [facility] 2020-11-18 00:00:00 2020-11-18 00:00:00 Telephone Laurel Shane [facility] 1..114 350.1.13.10 4.2.7.2.686 [id number] [id number] [facility] 2020-11-15 00:00:00 2020-11-15 00:00:00 Patient Secure Msg Doctor Unassigned, [place] [facility] 1.840.114 350.1.13.10 4.2.7.2.686 [id number] [facility] 2020-11-11 00:00:00 2020-11-11 00:00:00 Telephone Lauerl Shane [facility] Building 1.2840.114 350.1.13.10 4.2.7.2.686 [id number] [facility] 2020-11-11 00:00:00 2020-11-11 00:00:00 Telephone RachelGeneruddy [facility] 1.2840.114 350.1.13.10 4.2.7.2.686 [id number] [facility] 2020-11-07 13:20:00 2020-11-07 13:20:00 Outpatient R WIN SALMON [facility] [id number] [facility] 2020-11-07 00:00:00 2020-11-07 00:00:00 Patient Secure Msg Doctor Unassigned, [place] [facility] 1.840.114 350.1.13.10 4.2.7.2.686 [id number] [facility] 2020-11-06 12:59:57 2020-11-06 13:29:57 Office Visit Laurel [facility] 1.84.114 350.1.13.10 4.2.7.2.686 [id number] [facility] 2020-11-06 13:00:00 2020-11-06 13:00:00 Outpatient R LAUREL SHANE [facility] [id number] [facility] 2020-11-06 00:00:00 2020-11-06 00:00:00 Telephone Laurel Shane [facility] 1.2.840.114 350.1.13.10 4.2.7.2.686 [id number] [facility] 2020-11-01 12:56:00 2020-11-01 18:41:00 Emergency BoggsRosalino [facility] 1.2.840.114 350.1.13.10 4.2.7.2.686 [id number] [facility] 2020-11-01 00:00:00 2020-11-01 00:00:00 Telephone Laurel Shane [facility] 1.2840.114 350.1.13.10 4.2.7.2.686 [id number] [facility] 2020-10-31 13:00:46 2020-10-31 13:15:46 Jailer/Training Officer Visit 2, Adc Lab Laurel Shane [facility] Professio nal Building 1.2840.114 350.1.13.10 4.2.7.2.686 [id number] [facility] 2020-10-31 13:00:00 2020-10-31 13:00:00 Outpatient R LAUREL SHANE [facility] [id number] [facility] 2020-10-31 00:00:00 2020-10-31 00:00:00 Orders Only Doctor Unassigned, [place] [facility] 1.2840.114 350.1.13.10 4.2.7.2.686 [id number] [facility] 2020-10-28 00:00:00 2020-10-28 00:00:00 Telephone Laurel Shane [facility] 1.2840.114 350.1.13.10 4.2.7.2.686 [id number] [facility] 2020-10-25 14:49:03 2020-10-25 15:04:03 Jailer/Training Officer Visit 2, Adc Lab Laurel Shane [facility] Building 1.2.840.114 350.1.13.10 4.2.7.2.686 [id number] [facility] 2020-10-25 13:57:05 2020-10-25 14:37:42 Office Visit Fay Barrios [facility] Building 1.2.840.114 350.1.13.10 4.2.7.2.686 [id number] [facility] 2020-10-25 14:00:00 2020-10-25 14:00:00 Outpatient R FAY BARRIOS [facility] [id number] [facility] 2020-10-18 13:51:00 2020-10-18 17:43:00 Emergency Anna Goodman [facility] 1.2.840.114 350.1.13.10 4.2.7.2.686 [id number] [facility] 2020-10-17 13:25:24 2020-10-17 13:40:24 Jailer/Training Officer Visit 1, Adc Lab Laurel Shane [facility] 1.2.840.114 350.1.13.10 4.2.7.2.686 [id number] [facility] 2020-10-17 13:30:00 2020-10-17 13:30:00 Outpatient R [facility] [id number] [facility] 2020-10-17 00:00:00 2020-10-17 00:00:00 Telephone Laurel Shane [facility] 1.2.840.114 350.1.13.10 4.2.7.2.686 [id number] [facility] 2020-10-17 00:00:00 2020-10-17 00:00:00 Orders Only Doctor Unassigned, [place] [facility] 1.2840.114 350.1.13.10 4.2.7.2.686 [id number] [facility] 2020-10-14 00:00:00 2020-10-14 00:00:00 Telephone Laurel Shane [facility] 1.2840.114 350.1.13.10 4.2.7.2.686 [id number] [facility] 2020-10-14 00:00:00 2020-10-14 00:00:00 Patient Secure Mauricio Gaines [facility] 1.840.114 350.1.13.10 4.2.7.2.686 [id number] [facility] 2020-10-09 14:30:00 2020-10-09 14:30:00 Outpatient R LAUREL SHANE [facility] [id number] [facility] 2020-10-09 13:18:03 2020-10-09 13:48:03 Office Visit Laurel [facility] 1.0.114 350.1.13.10 4.2.7.2.686 [id number] [facility] 2020-10-08 11:48:04 2020-10-08 12:44:16 Office Visit Ann Marie Ward [facility] Building 1.284.114 350.1.13.10 4.2.7.2.686 [id number] [facility] 2020-10-08 12:30:00 2020-10-08 12:30:00 Outpatient R ANN MARIE WARD [facility] [id number] [facility] 2020-10-08 00:00:00 2020-10-08 00:00:00 Telephone Ann Marie Ward Hailey [facility] Building 1..840.114 350.1.13.10 4.2.7.2.686 [id number] [facility] 2020-10-01 15:00:00 2020-10-01 15:00:00 Outpatient R ANGE WARDMAD [facility] [id number] [facility] 2020-09-30 10:40:00 2020-09-30 10:40:00 Outpatient [facility] [id number] [facility] 2020-09-18 00:00:00 2020-09-18 00:00:00 Patient Secure Msg Doctor Unassigned, [place] [facility] 1.840.114 350.1.13.10 4.2.7.2.686 [id number] [facility] 2020-09-17 08:30:00 2020-09-17 08:30:00 Outpatient R FAY BARRIOS [facility] [id number] [facility] 2020-09-17 00:00:00 2020-09-17 00:00:00 Patient Secure Msg [facility] [place] [place] [facility] 1..840.114 350.1.13.10 4.2.7.2.686 [id number] [id number] [facility] 2020-09-02 15:23:16 2020-09-02 16:24:33 [facility] 1..840.114 350.1.13.10 4.2.7.2.686 [id number] [facility] 2020-09-02 15:30:00 2020-09-02 15:30:00 Outpatient R RACHEL GENE [facility] [id number] [facility] 2020-08-27 00:00:00 2020-08-27 00:00:00 Transition of Care Lisa Albarado 1.2.840.114 350.1.13.10 4.2.7.2.686 [id number] [facility] 2020-08-26 00:00:00 2020-08-26 00:00:00 Chapis Marlow [facility] 1.2.840.114 350.1.13.10 4.2.7.2.686 [id number] [facility] 2020-08-14 15:10:00 2020-08-25 18:40:00 Inpatient X HIMANSHU BHANU [facility] [id number] [facility] 2020-08-14 15:10:00 2020-08-25 18:40:00 Hospital Encounter Alma [place]uma, Gris [facility], [facility] 1.2.840.114 350.1.13.10 4.2.7.2.686 [id number] [facility] 2019-08-03 11:32:14 2019-08-03 23:59:00 Outpatient MAURICIO FLOYD [facility] [id number] [facility] Results Test Description Test Time Test Comments Results Resul t Comments Source XR CHEST 1 VW 2024-03-27 4 23:01:17 Study: Single view chest. Ordering Physician: MAURA TAYLOR Date: 04/18/2024 5:15 PM History:shortness of breath COMPARISON: 04/27/2023 Findings: Single frontal view chest demonstrates a normal heart size. Abattery pack is present in the left chest wall with a single leadterminating over the right ventricle. Patchy calcific atherosclerosis ofthe thoracic aorta is identified. The lungs are clear without infiltrate,pleural effusion or pneumothorax. No acute osseous abnormality isidentified. [id number] 20:27:11* Test Item Value Reference Range Interpretation Comme nts TROPONIN I (test code = 7746842432) <=0.034 JG (test code = JG) Reference (Normal) Range (defined by the 99th percentile reference limit): <= 0.034 ng/mL Note: Cardiac troponin begins to rise 3-4 hours after the onset of ischemia. Repeat in 4-6 hours if the sample was drawn within 3-4 hours of the onset of the symptom and found normal. Diagnosis of myocardial injury is made with acute changes in cTn concentrations with at least one serial sample above the 99th percentile upper reference limit (URL), taken together with the patient's clinical presentation. Biotin has been reported to cause a negative bias, interpret results relative to patient's use of biotin. Lab Interpretation (test code = 38499-1) Normal [facility] [id number] 20:24:50* Test Item Value Reference Range Interpretation Comme [facility] NT-proBNP (test code = 95475-0) 3180 pg/mL <=125 H JG (test code = JG) Positive: Heart Failure Likely Lab Interpretation (test code = 25699-7) Abnormal [facility]OL[facility] PAN[facility] ([id number])2023-04-27 20:16:09* Test Item Value Reference Range Interpretation Comme nts NA (test code = 7713854464) 129 mmol/L 135-145 L K (test code = 3221430315) 4.5 mmol/L 3.5-5.0 CL (test code = 6229069596) 95 mmol/L 98-108 L CO2 TOTAL (test code = 5209032750) 23 mmol/L 23-31 AGAP (test code = 0715585031) 11 2-16 BUN (test code = 0087423078) 36 mg/dL 7-23 H GLUCOSE (test code = 3756487628) 207 mg/dL 70-110 H CREATININE (test code = 6093053764) 1.91 mg/dL 0.60-1.25 H TOTAL BILI (test code = 1882884224) 0.8 mg/dL 0.1-1.1 CALCIUM (test code = 0301813277) 9.2 mg/dL 8.6-10.6 T PROTEIN (test code = 8301993753) 7.4 g/dL 6.3-8.2 ALBUMIN (test code = 6581982384) 4.2 g/dL 3.5-5.0 ALK PHOS (test code = 9306889699) 83 U/L 34-122 ALTv (test code = 1742-6) 37 U/L 5-50 AST(SGOT) (test code = 4912474478) 85 U/L 13-40 H eGFR (test code = 3729033440) 33.4 mL/min/1.73m2 JG (test code = JG) Association of Glomerular Filtration Rate (GFR) and Staging of Kidney Disease* + --+ --+ ------+| GFR (mL/min/1.73 m2) ?| With Kidney Damage ?| ?Without Kidney Damage+ --------+ --------+ +| ?>90 ?| ?Stage one ?| ? Normal ?+ ---+ ---+ -------+| ?60-89 ?| ?Stage two ?| ? Decreased GFR ? + --+ --+ ------+| ?30-59 ?| ?Stage three ?| ? Stage three ? + --+ --+ ------+| ?15-29 ?| ?Stage four ? | ? Stage four ?+ ---+ ---+ -------+| ?<15 (or dialysis) ? ?| ?Stage five ? | ? Stage five ?+ ---+ ---+ -------+ *Each stage assumes the associated GFR level has been in effect for at least three months. ?Stages 1 to 5, with or without kidney disease, indicate chronic kidney disease. Notes: Determination of stages one and two (with eGFR >59mL/min/1.73 m2) requires estimation of kidney damage for at least three months as defined by structural or functional abnormalities of the kidney, manifested by either:Pathological abnormalities or Markers of kidney damage (including abnormalities in the composition of the blood or urine or abnormalities in imaging tests). Lab Interpretation (test code = 84066-3) Abnormal [facility] WITH [id number] 20:02:21* Test Item Value Reference Range Interpretation Comme nts WBC (test code = 6690-2) 5.78 See_Comment [Automated messa ge] The system which generated this result transmitted reference range: 4.20 - 10.70 10*3/?L. The reference range was not used to interpret this result as normal/abnormal. RBC (test code = 789-8) 4.33 See_Comment [Automated messa ge] The system which generated this result transmitted reference range: 4.26 - 5.52 10*6/?L. The reference range was not used to interpret this result as normal/abnormal. HGB (test code = 718-7) 15.2 g/dL 12.2-16.4 HCT (test code = 4544-3) 42.2 % 38.4-49.3 MCV (test code = 787-2) 97.5 fL 81.7-95.6 H MCH (test code = 785-6) 35.1 pg 26.1-32.7 H MCHC (test code = 786-4) 36.0 g/dL 31.2-35.0 H RDW-SD (test code = 41982-6) 45.2 fL 38.5-51.6 RDW-CV (test code = 788-0) 12.6 % 12.1-15.4 PLT (test code = 777-3) 135 See_Comment L [Automated messa ge] The system which generated this result transmitted reference range: 150 - 328 10*3/?L. The reference range was not used to interpret this result as normal/abnormal. MPV (test code = 49038-5) 9.1 fL 9.8-13.0 L NRBC/100 WBC (test code = 6226433698) 0.0 See_Comment [Automated [employer] ssage] The system which generated this result transmitted reference range: 0.0 - 10.0 /100 WBCs. The reference range was not used to interpret this result as normal/abnormal. NRBC x10^3 (test code = 6771883146) See_Comment [Automated messa ge] The system which generated this result transmitted reference range: 10*3/?L. The reference range was not used to interpret this result as normal/abnormal. GRAN MAT (NEUT) % (test code = 770-8) 46.8 % IMM GRAN % (test code = 2336085800) 0.70 % LYMPH % (test code = 736-9) 36.7 % MONO % (test code = 5905-5) 13.5 % EOS % (test code = 713-8) 1.4 % BASO % (test code = 706-2) 0.9 % GRAN MAT x10^3(ANC) (test code = 0679288875) 2.71 10*3/uL 1.99-6.95 IMM GRAN x10^3 (test code = 0354130494) 0.04 10*3/uL 0.00-0.06 LYMPH x10^3 (test code = 731-0) 2.12 10*3/uL 1.09-3.23 MONO x10^3 (test code = 742-7) 0.78 10*3/uL 0.36-1.02 EOS x10^3 (test code = 711-2) 0.08 10*3/uL 0.06-0.53 BASO x10^3 (test code = 704-7) 0.05 10*3/uL 0.01-0.09 Lab Interpretation (test code = 03692-3) Abnormal [facility] METABOLIC PANEL (NA, K, CL, CO2, GLUCOSE, BUN, CREATININE, CA)2022-09-15 22:29:16* Test Item Value Reference Range Interpretation Comme nts NA (test code = 7444442263) 135 mmol/L 135-145 K (test code = 9422842851) 5.0 mmol/L 3.5-5.0 CL (test code = 9410086756) 104 mmol/L 98-108 CO2 TOTAL (test code = 1750718879) 22 mmol/L 23-31 L AGAP (test code = 1695016482) 9 2-16 BUN (test code = 7690930552) 66 mg/dL 7-23 H GLUCOSE (test code = 7842409806) 204 mg/dL 70-110 H CREATININE (test code = 5110566631) 2.46 mg/dL 0.60-1.25 H CALCIUM (test code = 1487513688) 7.7 mg/dL 8.6-10.6 L eGFR (test code = 1132815046) 25.0 mL/min/1.73m2 JG (test code = JG) Association of Glomerular Filtration Rate (GFR) and Staging of Kidney Disease* + --+ --+ ------+| GFR (mL/min/1.73 m2) ?| With Kidney Damage ?| ?Without Kidney Damage+ --------+ --------+ +| ?>90 ?| ?Stage one ?| ? Normal ?+ ---+ ---+ -------+| ?60-89 ?| ?Stage two ?| ? Decreased GFR ? + --+ --+ ------+| ?30-59 ?| ?Stage three ?| ? Stage three ? + --+ --+ ------+| ?15-29 ?| ?Stage four ? | ? Stage four ?+ ---+ ---+ -------+| ?<15 (or dialysis) ? ?| ?Stage five ? | ? Stage five ?+ ---+ ---+ -------+ *Each stage assumes the associated GFR level has been in effect for at least three months. ?Stages 1 to 5, with or without kidney disease, indicate chronic kidney disease. Notes: Determination of stages one and two (with eGFR >59mL/min/1.73 m2) requires estimation of kidney damage for at least three months as defined by structural or functional abnormalities of the kidney, manifested by either:Pathological abnormalities or Markers of kidney damage (including abnormalities in the composition of the blood or urine or abnormalities in imaging tests). Lab Interpretation (test code = 77662-2) [id number]10* Test Item Value Reference Range Interpretation Comme nts TROPONIN I (test code = 8170605087) 0.002 ng/mL <=0.034 JG (test code = JG) Reference (Normal) Range (defined by the 99th percentile reference limit): <= 0.034 ng/mL Note: Cardiac troponin begins to rise 3-4 hours after the onset of ischemia. Repeat in 4-6 hours if the sample was drawn within 3-4 hours of the onset of the symptom and found normal. Diagnosis of myocardial injury is made with acute changes in cTn concentrations with at least one serial sample above the 99th percentile upper reference limit (URL), taken together with the patient's clinical presentation. Biotin has been reported to cause a negative bias, interpret results relative to patient's use of biotin. Lab Interpretation (test code = 25817-7) Normal [facility]. METABOLIC PANEL ([id number])2022-09-15 20:30:48* Test Item Value Reference Range Interpretation Comme nts NA (test code = 0576346681) 134 mmol/L 135-145 L K (test code = 7133582671) 4.5 mmol/L 3.5-5.0 CL (test code = 9098669943) 99 mmol/L 98-108 CO2 TOTAL (test code = 5426767997) 24 mmol/L 23-31 AGAP (test code = 3092960318) 11 2-16 BUN (test code = 4420150237) 66 mg/dL 7-23 H GLUCOSE (test code = 4974773970) 201 mg/dL 70-110 H CREATININE (test code = 1162124215) 2.56 mg/dL 0.60-1.25 H TOTAL BILI (test code = 7926234487) 0.7 mg/dL 0.1-1.1 CALCIUM (test code = 8202059369) 8.4 mg/dL 8.6-10.6 L T PROTEIN (test code = 0889956507) 6.8 g/dL 6.3-8.2 ALBUMIN (test code = 4757804288) 4.1 g/dL 3.5-5.0 ALK PHOS (test code = 6927113784) 87 U/L 34-122 ALTv (test code = 1742-6) 26 U/L 5-50 AST(SGOT) (test code = 0395589718) 35 U/L 13-40 eGFR (test code = 0160656235) 23.9 mL/min/1.73m2 JG (test code = JG) Association of Glomerular Filtration Rate (GFR) and Staging of Kidney Disease* + --+ --+ ------+| GFR (mL/min/1.73 m2) ?| With Kidney Damage ?| ?Without Kidney Damage+ --------+ --------+ +| ?>90 ?| ?Stage one ?| ? Normal ?+ ---+ ---+ -------+| ?60-89 ?| ?Stage two ?| ? Decreased GFR ? + --+ --+ ------+| ?30-59 ?| ?Stage three ?| ? Stage three ? + --+ --+ ------+| ?15-29 ?| ?Stage four ? | ? Stage four ?+ ---+ ---+ -------+| ?<15 (or dialysis) ? ?| ?Stage five ? | ? Stage five ?+ ---+ ---+ -------+ *Each stage assumes the associated GFR level has been in effect for at least three months. ?Stages 1 to 5, with or without kidney disease, indicate chronic kidney disease. Notes: Determination of stages one and two (with eGFR >59mL/min/1.73 m2) requires estimation of kidney damage for at least three months as defined by structural or functional abnormalities of the kidney, manifested by either:Pathological abnormalities or Markers of kidney damage (including abnormalities in the composition of the blood or urine or abnormalities in imaging tests). Lab Interpretation (test code = 75800-9) Abnormal [facility] WITH [id number] 20:04:41* Test Item Value Reference Range Interpretation Comme nts WBC (test code = 6690-2) 8.28 See_Comment [Automated [employer]] The system which generated this result transmitted reference range: 4.20 - 10.70 10*3/?L. The reference range was not used to interpret this result as normal/abnormal. RBC (test code = 789-8) 3.82 See_Comment L [Automated [employer]] The system which generated this result transmitted reference range: 4.26 - 5.52 10*6/?L. The reference range was not used to interpret this result as normal/abnormal. HGB (test code = 718-7) 13.2 g/dL 12.2-16.4 HCT (test code = 4544-3) 37.2 % 38.4-49.3 L MCV (test code = 787-2) 97.4 fL 81.7-95.6 H MCH (test code = 785-6) 34.6 pg 26.1-32.7 H MCHC (test code = 786-4) 35.5 g/dL 31.2-35.0 H RDW-SD (test code = 11350-9) 44.9 fL 38.5-51.6 RDW-CV (test code = 788-0) 12.6 % 12.1-15.4 PLT (test code = 777-3) 163 See_Comment [Automated [employer]] The system which generated this result transmitted reference range: 150 - 328 10*3/?L. The reference range was not used to interpret this result as normal/abnormal. MPV (test code = 37611-9) 9.1 fL 9.8-13.0 L NRBC/100 WBC (test code = 1317313372) 0.0 See_Comment [Automated [employer] ssage] The system which generated this result transmitted reference range: 0.0 - 10.0 /100 WBCs. The reference range was not used to interpret this result as normal/abnormal. NRBC x10^3 (test code = 3757439369) See_Comment [Automated [employer]] The system which generated this result transmitted reference range: 10*3/?L. The reference range was not used to interpret this result as normal/abnormal. GRAN MAT (NEUT) % (test code = 770-8) 60.1 % IMM GRAN % (test code = 6012887387) 0.60 % LYMPH % (test code = 736-9) 29.5 % MONO % (test code = 5905-5) 7.2 % EOS % (test code = 713-8) 2.2 % BASO % (test code = 706-2) 0.4 % GRAN MAT x10^3(ANC) (test code = 2096164948) 4.98 10*3/uL 1.99-6.95 IMM GRAN x10^3 (test code = 3482469538) 0.05 10*3/uL 0.00-0.06 LYMPH x10^3 (test code = 731-0) 2.44 10*3/uL 1.09-3.23 MONO x10^3 (test code = 742-7) 0.60 10*3/uL 0.36-1.02 EOS x10^3 (test code = 711-2) 0.18 10*3/uL 0.06-0.53 BASO x10^3 (test code = 704-7) 0.03 10*3/uL 0.01-0.09 Lab Interpretation (test code = 17702-1) Abnormal [facility] Notes Date/Time Note Provider Source 2024-04-18 19:31:27 Pt given printed and verbal discharge instructions regarding fatigue, hiccups, and encouraged hydration. Pt verbalized understanding of instructions, pt awake alert oriented, resp reg unlabored, skin w/d, color appropriate for race, moves all ext well,pt encouraged to follow up with pcp. Advised to seek medical attention for new/prolonged/worsening of symptoms, Symptoms increased fatigue No adverse reaction to meds given in ER noted upon discharge PIV d'cd, dressing to site, catheter in tact. Awake, alert oriented, resp reg unlabored, skin w/d, pt leaving ambulatory with use of cane, in no apparent distress, Jaz Butler RN [facility] 2024-04-18 16:29:57 Patient was sent over by urgent care for complaint of hiccups x 2 days. Pt says they will go away for about 15 minutes and come back. Also reports dyspnea on exertion and increased fatigue over past 2 months. Miguel Angel Bee RN [facility] 2024-04-12 09:06:19 Attempted to contact patient with results/recommendations. [facility] for patient to return call to [phone]. Patient has seen results on My Chart, call back number provided and patient encouraged to call back if needed. CBC within acceptable limits NT BNP stable at 1840 similar to 8 months ago. Lipid panel within acceptable limits CMP within acceptable limits. Creatinine stable at 1.8 similar to 8 months ago. Continue the current cardiac medications without any further changes. Follow-up as planned Written by Fay Barrios MD on 04/09/2024 11:59 AM CDT Seen by patient Michael Ledesma on 04/09/2024 5:08 PM [facility] 2024-04-11 11:11:58 Images from the original note were not included. Attempted to contact patient with results/recommendations. [facility] for patient to return call to [phone]. Fay Barrios MD P Cardiology Nurse CBC within acceptable limits NT BNP stable at 1840 similar to 8 months ago. Lipid panel within acceptable limits CMP within acceptable limits. Creatinine stable at 1.8 similar to 8 months ago. Continue the current cardiac medications without any further changes. Follow-up as planned T [facility] 2024-04-05 09:45:00 Images from the original note were not included. Venipuncture collection performed by clean technique on the left anticubitus. Total of 1 attempts were made. Slight pressure and a bandage/dressing were applied to the site(s). The patient experienced no complications. The following specimens were processed according to instructions and sent to [facility] laboratories per lab order on 04/05/2024 : LT BLUE SST 1 RED LAV 1 PPT DK GREEN (LiHep) DK GREEN (SodH) SUAZO DK BLUE (K2) DK BLUE (S) ACD Blood Culture NIPT/NTD T [facility] 2024-02-18 13:46:52 Patient has been scheduled for CLC due to ADC having nothing sooner. Patient daughter in law Liseth said she understood and wanted CLC location Jocy Painter [facility] 2024-02-18 13:41:41 Yael Ledesma is a 89 year old male Pts daughter in law Liseth calling to reschedule device check. Liseth - [phone] Giovanna Velazquez [facility] 2024-01-13 13:21:03 Images from the original note were not included. Patient was notified of the results below on my chart, patient seen the results . I lvm to tell the patient if they had any questions to please call us back so we can address them. Thank you . Fay Barrios MD P Cardiology Nurse Echocardiogram shows stable LV systolic function at 30-40 percent. 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 No significant changes compared to the previous echocardiogram 12/2022. Follow-up as planned. Continue the current cardiac medications without any further changes. T [facility] 2024-01-03 12:52:[address] Barrios has not reviewed the results yet. Will contact patient/daughter once reviewed by provider to go over results and recommendations. T [facility] 2024-01-03 10:44:13 Copied from [facility] #[id number]. Topic: Clinical - Results >> Jan 03, 2024 10:43 AM Patient [employer] wrote: Yael Ledesma is a 88 year old male Daughter was calling for someone to go over the results of the echo Please advise T Nat Rico [facility] 2023-12-03 13:00:00 Addended by: FAY BARRIOS on: 02/23/2024 10:29 AM Modules accepted: Orders [facility] 2023-08-13 16:06:34 3rd Attempt to call patient for results will send the results by mail and also send a message on [employer] I Boss MA [facility] 2023-08-12 11:29:35 Images from the original note were not included. Fay Barrios MD P Cardiology Nurse Lipid panel within acceptable limits. LDL at goal. Improving BNP noted. Currently at 1800. Previously 3180. Magnesium normal. BMP shows elevated creatinine 1.9 similar to 3 months ago. Rest of the BMP within stable limits. Continue with the current cardiac medications without any further changes. Follow-up as planned. Attempted to contact patient with results/recommendations. LVM for patient to return call to [phone]. I Coronado MA [facility] 2023-08-11 08:49:57 Images from the original note were not included. Attempted to call patient for results LVM with office number for patient to return the call will try back later. Fay Barrios MD P Cardiology Nurse Lipid panel within acceptable limits. LDL at goal. Improving BNP noted. Currently at 1800. Previously 3180. Magnesium normal. BMP shows elevated creatinine 1.9 similar to 3 months ago. Rest of the BMP within stable limits. Continue with the current cardiac medications without any further changes. Follow-up as planned. [facility] 2023-08-05 11:00:00 Images from the original note were not included. Venipuncture collection performed by clean technique on the left anticubitus. Total of 1 attempts were made. Slight pressure and a bandage/dressing were applied to the site(s). The patient experienced no complications. The following specimens were processed according to instructions and sent to [facility] laboratories per lab order on 08/05/2023 : LT BLUE SST 1 RED LAV PPT DK GREEN (LiHep) DK GREEN (SodH) SUAZO DK BLUE (K2) DK BLUE (S) ACD Blood Culture NIPT/NTD [facility]
[2024-05-11 11:01] LABS: Absolute Basophils 0.1 K/uL (0-0.5); Absolute Eosinophils 0.1 K/uL (0-0.5); Absolute Lymphocytes (CBC) 1.4 K/uL (0.7-4.9); Absolute Monocytes 0.6 K/uL (0.1-1.3); Absolute Neutrophil 7.1 K/uL (1.8-8.0); Basophils % 0.6 % (0-1.3); Eosinophils % 1.3 % (0-4.4); Hematocrit 36.7 % (39.6-49.0); Hemoglobin 12.8 g/dL (13.6-17.9); Lymphocytes % 15.3 % (15.3-44.8); MCH 34.4 pg (27.0-35.0); MCV 98.1 fL (80-100); MPV 6.6 fL (7.6-11.3); Monocytes % 6.4 % (3.3-12.3); Neutrophils % 76.4 % (41.7-73.7); Platelets 161 thou/uL (152-406); RBC Red Blood Cell Count 3.74 M/uL (4.33-5.43); Red Cell Distribution Width 13.7 % (12.1-15.2)
[2024-05-11 11:17] LABS: Specific Gravity 1.018 (1.005-1.030); Sqamous Epithelial None Seen /HPF (None Seen); Urine Bacteria None Seen /HPF (<20); Urine Bilirubin NEGATIVE (Negative); Urine Blood Negative (Negative); Urine Clarity Clear (Clear); Urine Color Light-Yellow (Yellow); Urine Culture Reflex Order NOT NEEDED; Urine Glucose NEGATIVE (Negative); Urine Ketones NEGATIVE (Negative); Urine Micro Reflex YN NO BILL MICROSCOPIC; Urine Mucus Slight /HPF (None Seen); Urine Nitrite NEGATIVE (Negative); Urine Protein TRACE (Negative); Urine RBC <5 /HPF (None Seen); Urine Urobilinogen Normal (Normal); Urine WBC <5 /HPF (<5); Urine pH 5.5 (5.0-7.0)
[2024-05-11 11:27] LABS: Albumin 3.3 g/dL (3.4-5.0); Anion Gap 9.3 mEq/L (5.0-15.0); Bilirubin Direct 0.3 mg/dL (0-0.2); Bilirubin Indirect, Calculated 0.6 mg/dL (0.2-0.8); Bilirubin Total 0.9 mg/dL (0.2-1.0); Globulin 3.2 g/dL (2.3-3.5); Potassium 4.3 mEq/L (3.5-5.1); Protein, Total 6.5 g/dL (6.4-8.2)
[2024-05-11 11:29] LABS: Troponin High Sensitivity 74.5 pg/mL (<58.9)
--- NOTE | 2024-05-11 12:47 | RAD REPORT ---
EXAMINATION: ONE VIEW CHEST XR CLINICAL INDICATION: Male, 89 years old.,dizziness TECHNIQUE: Frontal chest projection is submitted. Examination is limited by patient positioning and t echnique. COMPARISON: 01/03/2016 FINDINGS: The lungs are well inflated and clear of new opacities. Interstitial coarsening and some hyperlucency at the bases. No pneumothorax or sizable effusion. The heart is normal in size. IMPRESSION: No acute intrathoracic abnormalities.
--- NOTE | 2024-05-11 14:36 | EDPHYS ---
Physician Documentation [facility] Name: Darrel Ledesma Age: 89 yrs Sex: Male : 1935 Arrival Date: 05/11/2024 Time: 10:35 Bed 5 Private MD: ED Physician Foreign Aparicio HPI: 05/11 12:11 This 89 yrs old Male presents to ER via EMS with complaints of Low Blood Sugar. rt 12:11 Patient presents to the ED with weakness and dizziness since yesterday. Blood sugar was rt checked today, noted to be 40s, only improved to 54 after oral glucose administration. States that he continues to feel dizzy, reports no change in his symptoms. Denies chest pain, acute complaints, symptoms are moderate in severity, no other aggravating or alleviating factors.. Historical: - Allergies: 10:50 No Known Allergies; mb9 - Home Meds: 10:50 simvastatin 40 mg Oral tab 1 tab once daily [Active]; Insulin: Humulin 70/30 Sub-Q mb9 [Active]; losartan 25 mg oral tablet [Active]; metoprolol tartrate 25 mg Oral tablet [Active]; - PMHx: 10:50 Depression; Diabetes - NIDDM; Hyperlipidemia; Hypertension; mb9 - PSHx: 10:50 Pacemaker (Hypertension); mb9 - Immunization history:: Adult Immunizations up to date. - Infectious Disease History:: Denies. - Social history:: Smoking status: Patient denies any tobacco usage or history of. - Family history:: not pertinent. ROS: 12:11 Constitutional: Negative for fever, chills, and weight loss, Cardiovascular: Negative rt for chest pain, palpitations, and edema, Respiratory: Negative for shortness of breath, cough, wheezing, and pleuritic chest pain, Abdomen/GI: Negative for abdominal pain, nausea, vomiting, diarrhea, and constipation, MS/Extremity: Negative for injury and deformity, Skin: Negative for injury, rash, and discoloration, 12:11 Neuro: Positive for dizziness, weakness, Exam: 12:11 Constitutional: This is a well developed, well nourished patient who is awake, alert, rt and in no acute distress. Head/Face: Normocephalic, atraumatic. Chest/axilla: Normal chest wall appearance and motion. Nontender with no deformity. No lesions are appreciated. Cardiovascular: Regular rate and rhythm with a normal S1 and S2. No gallops, murmurs, or rubs. Normal PMI, no JVD. No pulse deficits. Respiratory: Lungs have equal breath sounds bilaterally, clear to auscultation and percussion. No rales, rhonchi or wheezes noted. No increased work of breathing, no retractions or nasal flaring. Abdomen/GI: Soft, non-tender, with normal bowel sounds. No distension or tympany. No guarding or rebound. No evidence of tenderness throughout. Skin: Warm, dry with normal turgor. Normal color with no rashes, no lesions, and no evidence of cellulitis. MS/ Extremity: Pulses equal, no cyanosis. Neurovascular intact. Full, normal range of motion. Neuro: Awake and alert, GCS 15, oriented to person, place, time, and situation. Cranial nerves II-XII grossly intact. Motor strength 5/5 in all extremities. Sensory grossly intact. Cerebellar exam normal. Normal gait. 12:11 ECG was reviewed by the Attending Physician. Vital Signs: 10:49 BP 161 / 92; Pulse 102; Resp 16; Temp 98; Pulse Ox 100% on R/A; Weight 83.91 kg; Height mb9 6 ft. 0 in. ; Pain 0/10; 12:40 BP 142 / 77; Pulse 94; Resp 16; Pulse Ox 100% on R/A; mb9 14:26 BP 141 / 70; Pulse 95; Resp 18; Pulse Ox 98% on R/A; mb9 15:45 BP 167 / 88; Pulse 95; Resp 18; Pulse Ox 96% on R/A; mb9 10:49 Body Mass Index 25.09 (83.91 kg, 182.88 cm) mb9 10:49 Pain Scale: Adult mb9 MDM: 10:44 Medical Screening Exam initiated rt 18:04 Differential diagnosis: Hypoglycemia, ACS, electrolyte disturbance. Data reviewed: rt vital signs, nurses notes, lab test result(s), EKG, radiologic studies. Consideration of Admission/Observation Patient was admitted/placed on observation. Management of patient was discussed with the following: Hospitalist: Agrees to admit. Independent interpretation of the following test(s) in the Emergency Department X-Ray: My interpretation is No consolidation seen on my interpretation of x-ray images. Care significantly affected by the following chronic conditions: Diabetes. Counseling: I had a detailed discussion with the patient and/or guardian regarding the historical points, exam findings, and any diagnostic results supporting the discharge/admit diagnosis, lab results, radiology results, the need for further work-up and treatment in the hospital. Response to treatment: the patient's symptoms have mildly improved after treatment. 05/11 10:46 Order name: Basic Metabolic Panel; Complete Time: 11:34 rt 05/11 10:46 Order name: CBC with Diff; Complete Time: 11:34 rt 05/11 10:46 Order name: LFT's; Complete Time: 11:34 rt 05/11 10:46 Order name: Troponin HS; Complete Time: 11:34 rt 05/11 10:46 Order name: UAM; Complete Time: 11:34 rt 05/11 10:51 Order name: Glucose, Ancillary Testing; Complete Time: 11:34 EDMS 05/11 11:46 Order name: Glucose, Ancillary Testing; Complete Time: 11:50 EDMS 05/11 15:28 Order name: CBC with Automated Diff EDMS 05/11 15:28 Order name: CBC with Automated Diff EDMS 05/11 15:28 Order name: Comprehensive Metabolic Panel EDSC 05/11 15:28 Order name: Comprehensive Metabolic Panel EDSC 05/11 15:28 Order name: Hemoglobin A1c EDSC 05/11 15:28 Order name: Hemoglobin A1c EDSC 05/11 15:28 Order name: Lipid Profile EDSC 05/11 15:28 Order name: Lipid Profile EDSC 05/11 15:28 Order name: Troponin High Sensitivity EDSC 05/11 15:28 Order name: Troponin High Sensitivity EDSC 05/11 15:28 Order name: Troponin High Sensitivity EDSC 05/11 17:08 Order name: Glucose, Ancillary Testing; Complete Time: 18:43 EDMS 05/11 10:46 Order name: XRAY Chest (1 view); Complete Time: 12:47 rt 05/11 15:28 Order name: Echo with Doppler EDMS 05/11 15:28 Order name: Echo with Doppler EDMS 05/11 10:46 Order name: EKG; Complete Time: 10:46 rt 05/11 15:28 Order name: CONS Physician Consult EDMS 05/11 10:46 Order name: Cardiac monitoring; Complete Time: 10:53 rt 05/11 10:46 Order name: EKG - Nurse/Tech; Complete Time: 53 rt 05/11 10:46 Order name: IV Saline Lock; Complete Time: rt 05/11 10:46 Order name: Labs collected and sent; Complete Time: rt 05/11 10:46 Order name: O2 Per Protocol; Complete Time: rt 05/11 10:46 Order name: O2 Sat Monitoring; Complete Time: :53 rt EC:11 Rate is 108 beats/min. Rhythm is regular, Sinus tachycardia with Occasional PVCs. QRS rt [place] is Normal. MT interval is normal. QRS interval is normal. QT interval is normal. No Q waves. Administered Medications: 10:48 Drug: NS 0.9% IV 1000 ml IV at 1 bolus Per protocol; to be given as a bolus over 60 mb9 minutes Route: IV; Rate: 1 bolus; Site: left antecubital; 13:27 Follow up: Response: No adverse reaction; IV Status: Completed infusion mb9 Point of Care Testing: Blood Glucose: 11:35 Blood Glucose: 145 mg/dL; cm10 Ranges: Critical Glucose Levels:Adult <50 mg/dl or >400 mg/dl <40 mg/dl or >180 mg/dl Disposition Summary: 05/11/24 14:36 Hospitalization Ordered Notes: Hospitalization Status: Observation rt Provider: Susie Camp rt Condition: Stable rt Problem: new rt Symptoms: have improved rt Bed/Room Type: Standard rt Location: Telemetry/MedSurg (observation)(05/11/24 18:53) bc6 Room Assignment: [facility](05/11/24 18:53) [facility] Diagnosis - Syncope Near rt - Elevated troponin rt Forms: - Medication Reconciliation Form rt - SBAR form rt - Leadership Thank You Letter rt Signatures: Dispatcher [employer] Guillermina Bullock RN RN concha3 Minoo Pereira RN RN mb9 Foreign Aparicio MD MD rt Leslee Wright bc6 Corrections: (The following items were deleted from the chart) 16:22 14:36 Telemetry/MedSurg (observation) rt kb3 16:22 14:36 rt kb3 18:53 16:22 [facility] ER HOLD kb3 bc6 18:53 16:22 ERHOLD- kb3 bc6
--- NOTE | 2024-05-11 14:36 | ER ---
Nurse's Notes [facility] Name: Darrel Ledesma Age: 89 yrs Sex: Male : 1935 Arrival Date: 05/11/2024 Time: 10:35 Bed 5 Private MD: Diagnosis: Syncope Near;Elevated troponin Presentation: 05/11 10:49 Chief complaint: EMS states: "toned out from [facility] for feeling weak and dizzy mb9 since yesterday. On arrival BGL 40. Administer oral glucose and 1 liter of 0.9 NS, BGL now 53. 20 g left AC". Coronavirus screen: Vaccine status: Patient reports receiving the 2nd dose of the covid vaccine. Ebola Screen: No symptoms or risks identified at this time. Initial Sepsis Screen: Does the patient meet any 2 criteria? No. Patient's initial sepsis screen is negative. Does the patient have a suspected source of infection? No. Patient's initial sepsis screen is negative. Risk Assessment: Do you want to hurt yourself or someone else? Patient reports no desire to harm self or others. Onset of symptoms was May 11, 2024. 10:49 Method Of Arrival: EMS: [facility] mb9 10:49 Acuity: LIN 3 mb9 Triage Assessment: 10:52 General: Appears in no apparent distress. Behavior is calm, cooperative. Pain: Denies mb9 pain. EENT: No signs and/or symptoms were reported regarding the EENT system. Neuro: Abrams Agitation-Sedation Scale (RASS): 0 - Alert and Calm Level of Consciousness is awake, alert, obeys commands, Oriented to person, place, time, situation, Appropriate for age. Neuro: Reports dizziness, weakness. Cardiovascular: Heart tones S1 S2 present Patient's skin is warm and dry. Respiratory: Airway is patent Respiratory effort is even, unlabored, Respiratory pattern is regular, symmetrical, Breath sounds are clear bilaterally. GI: No signs and/or symptoms were reported involving the gastrointestinal system. : No signs and/or symptoms were reported regarding the genitourinary system. Derm: Skin is pink, warm \\T\\ dry. Musculoskeletal: Range of motion: intact in all extremities. Historical: - Allergies: 10:50 No Known Allergies; mb9 - Home Meds: 10:50 simvastatin 40 mg Oral tab 1 tab once daily [Active]; Insulin: Humulin 70/30 Sub-Q mb9 [Active]; losartan 25 mg oral tablet [Active]; metoprolol tartrate 25 mg Oral tablet [Active]; - PMHx: 10:50 Depression; Diabetes - NIDDM; Hyperlipidemia; Hypertension; mb9 - PSHx: 10:50 Pacemaker (Hypertension); mb9 - Immunization history:: Adult Immunizations up to date. - Infectious Disease History:: Denies. - Social history:: Smoking status: Patient denies any tobacco usage or history of. - Family history:: not pertinent. Screenin:52 [facility] ED Fall Risk Assessment (Adult) History of falling in the last 3 months, mb9 including since admission No falls in past 3 months (0 pts) Confusion or Disorientation No (0 pts) Intoxicated or Sedated No (0 pts) Impaired Gait No (0 pts) Mobility Assist Device Used Yes (1 pt) Altered Elimination No (0 pt) Score/Fall Risk Level 0 - 2 = Low Risk Oriented to surroundings, Maintained a safe environment, Educated pt \\T\\ family on fall prevention, incl call for assistance when getting out of bed. Abuse screen: Denies threats or abuse. Nutritional screening: No deficits noted. Tuberculosis screening: No symptoms or risk factors identified. Assessment: 10:52 Reassessment: see triage assessment. mb9 10:53 Reassessment: Pt given orange juice and sandwich per ERP. mb9 11:45 Reassessment: No changes from previously documented assessment. Patient and/or family mb9 updated on plan of care and expected duration. Pain level reassessed. Patient is alert, oriented x 3, equal unlabored respirations, skin warm/dry/pink. 12:45 Reassessment: No changes from previously documented assessment. Patient and/or family mb9 updated on plan of care and expected duration. Pain level reassessed. Patient is alert, oriented x 3, equal unlabored respirations, skin warm/dry/pink. 14:26 Reassessment: Patient appears in no apparent distress at this time. No changes from mb9 previously documented assessment. Patient and/or family updated on plan of care and expected duration. Pain level reassessed. Patient is alert, oriented x 3, equal unlabored respirations, skin warm/dry/pink. 15:30 Reassessment: No changes from previously documented assessment. Patient and/or family mb9 updated on plan of care and expected duration. Pain level reassessed. Patient is alert, oriented x 3, equal unlabored respirations, skin warm/dry/pink. Vital Signs: 10:49 BP 161 / 92; Pulse 102; Resp 16; Temp 98; Pulse Ox 100% on R/A; Weight 83.91 kg; Height mb9 6 ft. 0 in. ; Pain 0/10; 12:40 BP 142 / 77; Pulse 94; Resp 16; Pulse Ox 100% on R/A; mb9 14:26 BP 141 / 70; Pulse 95; Resp 18; Pulse Ox 98% on R/A; mb9 15:45 BP 167 / 88; Pulse 95; Resp 18; Pulse Ox 96% on R/A; mb9 10:49 Body Mass Index 25.09 (83.91 kg, 182.88 cm) mb9 10:49 Pain Scale: Adult mb9 ED Course: 10:43 Patient arrived in ED. rt 10:43 Rosa Adorno MD is Attending Physician. gb1 10:44 Foreign Aparicio MD is Attending Physician. rt 10:48 Minoo Pereira, LAKSHMI is Primary Nurse. mb9 10:48 Arm band placed on. mb9 10:50 Triage completed. mb9 10:53 Placed in gown. Bed in low position. Call light in reach. Side rails up X 1. Provided mb9 Education on: press call light if needing anything. Client placed on continuous cardiac and pulse oximetry monitoring. NIBP monitoring applied. jewelry sales on. 10:53 Initial lab(s) drawn, by me, sent to lab. Maintain EMS IV. Dressing intact. Good blood mb9 return noted. Site clean \\T\\ dry. Gauge \\T\\ site: 20g left AC. Flushed with 10 mL NS. 10:53 No provider procedures requiring assistance completed. mb9 11:03 EKG done, by ED staff, reviewed by Foreign Aparicio MD. mb9 11:10 Urine collected: clean catch specimen, clear. mb9 11:34 XRAY Chest (1 view) In Process Unspecified. EDMS 14:26 Patient admitted, IV remains in place. mb9 14:35 Susie Camp MD is Hospitalizing Provider. rt 19:11 Report given to Satinder. cm10 19:43 1943 CM met with patient and his friend Reji at the bedside in the ED exam room. ane Patient identified by name and . Demographic sheet confirmed. Patient states he lives at [facility]. reports that prior to admission, he performs ADLs independently. DME in his home includes a glucometer, Life Alert Necklace and shower seat. No HH, no home oxygen or other medical services at this time. MPOA is in place. PCP is Dr. Jovany Hess. Patient states his plan is to return to [facility] upon discharge. If transportation becomes an issue, Reji at the bedside states 's son Frank or himself can transport him back to [facility]. Make explained that [facility] needs a few hours notice to organize transportation. CM team will continue to follow and coordinate care during this hospital stay. Administered Medications: 10:48 Drug: NS 0.9% IV 1000 ml IV at 1 bolus Per protocol; to be given as a bolus over 60 mb9 minutes Route: IV; Rate: 1 bolus; Site: left antecubital; 13:27 Follow up: Response: No adverse reaction; IV Status: Completed infusion mb9 Medication: 10:53 VIS not applicable for this client. mb9 Point of Care Testing: Blood Glucose: 11:35 Blood Glucose: 145 mg/dL; cm10 Ranges: Outcome: 14:36 Decision to Hospitalize by Provider. rt 17:55 Admitted to ER Hold. Please see [facility] for further documentation. mb9 17:55 Condition: stable 17:55 Instructed on the need for admit, 20:17 Patient left the ED. cp4 Signatures: Dispatcher [employer] Minoo Jackman RN RN mb9 Foreign Aparicio MD MD rt Nayely Vallejo RN RN cm10 Rosa Adorno MD MD gb1 Florina Cruz cp4 Norma Hines RN RN ane Corrections: (The following items were deleted from the chart) 10:51 10:49 Chief complaint: EMS states: "toned out for feeling weak and dizzy since mb9 yesterday. On arrival BGL 40. Administer oral glucose and 1 liter of 0.9 NS, BGL now 53. 20 g left AC" mb9
[2024-05-11] MEDS ORDERED: ONDANSETRON 4 MG/2 ML VIAL IV PRN (15:22)
[2024-05-11] MEDS ORDERED: MORPHINE 2 MG/ML SYR IV PRN (15:22)
[2024-05-11] MEDS ORDERED: ACETAMINOPHEN 500 MG TAB PO PRN (15:22)
--- NOTE | 2024-05-11 15:28 | P.HP ---
Certification for Inpatient Patient admitted to: Observation With expected LOS: <2 Midnights Patient will require the following post-hospital care: None Practitioner: I am a practitioner with admitting privileges, knowledge of patient current condition, hospital course, and medical plan of care. Services: Services provided to patient in accordance with Admission requirements found in Title 42 Section 412.3 of the Code of Federal Regulations Patient History Date of Service: 05/11/24 Reason for admission: Near syncope; hypoglycemia History of Present Illness: Patient is an 89-year-old gentleman came to the hospital with near syncope. Patient was found to have hypoglycemic. Allergies No Known Allergies Allergy (Unverified 01/03/16 15:37) Review of Systems 10-point ROS is otherwise unremarkable Physical Examination - Physical Exam General: Alert, In no apparent distress, Oriented x3 HEENT: Atraumatic, PERRLA, Mucous membr. moist/pink, EOMI, Sclerae nonicteric Neck: Supple, 2+ carotid pulse no bruit, No LAD, Without JVD or thyroid abnormality Respiratory: Clear to auscultation bilaterally, Normal air movement Cardiovascular: Regular rate/rhythm, Normal S1 S2 Gastrointestinal: Normal bowel sounds, No tenderness Musculoskeletal: No tenderness Integumentary: No rashes Neurological: Normal gait, Normal speech, Normal strength at 5/5 x4 extr, Normal tone, Normal affect Lymphatics: No axilla or inguinal lymphadenopathy - Studies Laboratory Data (last 24 hrs) 05/11/24 05/11/24 10:54 10:54 WBC 9.30 Hgb 12.8 L Hct 36.7 L Plt Count 161 Sodium 137 Potassium 4.3 BUN 27 H Creatinine 1.57 H Glucose 87 Total Bilirubin 0.9 AST 22 ALT 31 Alkaline Phosphatase 59 Assessment & Plan - Problems (Diagnosis) (1) Hypoglycemia Current Visit: Yes Status: Acute (2) Near syncope Current Visit: Yes Status: Acute - Advance Directives Does patient have a Living Will: No Does patient have a Durable POA for Healthcare: No
[2024-05-11] MEDS: D5 0.9 NS 1,000 ML IV SCH (16:00)
[2024-05-11] MEDS ORDERED: D5W 1,000 ML IV ONE (16:06)
[2024-05-11 16:44] VITALS: BMI 25.0
[2024-05-11 20:26] VITALS: O2SAT 96
[2024-05-11] MEDS ORDERED: GLUCAGON 1 MG/VIAL IM PRN (22:01)
[2024-05-11] MEDS ORDERED: D50W 25 GM/50 ML SYRINGE IV PRN (22:01)
[2024-05-11] MEDS: METOPROLOL XL 25 MG TAB PO ONE (22:49)
[2024-05-11] MEDS: ATORVASTATIN 40 MG TAB PO SCH (22:49)
[2024-05-12 07:13] LABS: Absolute Eosinophils 0.2 K/uL (0-0.5); Absolute Lymphocytes (CBC) 1.4 K/uL (0.7-4.9); Absolute Monocytes 0.7 K/uL (0.1-1.3); Absolute Neutrophil 5.8 K/uL (1.8-8.0); Basophils % 0.5 % (0-1.3); Eosinophils % 2.9 % (0-4.4); Hemoglobin 12.9 g/dL (13.6-17.9); Lymphocytes % 17.2 % (15.3-44.8); MCH 34.7 pg (27.0-35.0); MCHC 35.8 g/dL (32.0-36.0); MPV 6.8 fL (7.6-11.3); Monocytes % 8.8 % (3.3-12.3); Neutrophils % 70.6 % (41.7-73.7); Nucleated Red Blood Cells % 0.1 % (0-0); Platelets 156 thou/uL (152-406); RBC Red Blood Cell Count 3.71 M/uL (4.33-5.43); Red Cell Distribution Width 13.5 % (12.1-15.2)
[2024-05-12 07:16] LABS: Anion Gap 10.3 mEq/L (5.0-15.0); Bilirubin Total 0.9 mg/dL (0.2-1.0); Globulin 2.9 g/dL (2.3-3.5); Potassium 4.3 mEq/L (3.5-5.1); Protein, Total 5.9 g/dL (6.4-8.2)
[2024-05-12 07:18] LABS: Troponin High Sensitivity 122.8 pg/mL (<58.9)
[2024-05-12] MEDS: INSULIN 70/30 100 UNITS/ML SQ SCH (08:00)
[2024-05-12] MEDS: ASPIRIN 81 MG CHEWABLE TABLET PO SCH (08:58)
[2024-05-12] MEDS: METOPROLOL XL 25 MG TAB PO SCH (08:58)
[2024-05-12] MEDS: FUROSEMIDE 20 MG TABLET PO SCH (08:58)
[2024-05-12] MEDS: VITAMIN B COMPLEX 1 CAP PO SCH (08:58)
[2024-05-12] MEDS: LOSARTAN POTASSIUM 50 MG TABLET PO SCH (08:58)
[2024-05-12] MEDS: VITAMIN D 5,000 UNIT CAP PO SCH (08:59)
[2024-05-12 17:43] VITALS: BP 169/81; TEMP 97.5
[2024-05-12] MEDS ORDERED: ATORVASTATIN 20 MG TAB PO SCH ×2 (21:00)
[2024-05-12] MEDS ORDERED: METOPROLOL XL 25 MG TAB PO ONE (22:25)
--- NOTE | 2024-05-14 21:35 | CON ---
Date of Consultation: 05/12/2024 Reason For Consultation: Positive troponin. History Of Present Illness: 89-year-old male who presented to the emergency room with syncopal episo gladys. He felt generally weak with some sweats and almost about to faint. Sugar was in the very low r francis in low 40s. After giving glucose, the patient's symptoms have resolved. Routine blood work don e in the emergency room showed that there is a slightly elevated troponin, but patient denies having any chest pain and he follows up with svp chief marketing officer in [place]. Past Medical History: Diabetes, dyslipidemia, hypertension, depression. Medications: Refer to reconciliation sheet for detailed list. Allergies: NO KNOWN DRUG ALLERGIES. Family History: No premature coronary artery disease cancer. Social History: Does not smoke or drink. Does not use any drugs. Review of Systems: All systems reviewed and they are negative except mentioned in the HPI. Physical Examination: Vital Signs: Reviewed. Head and Neck: Pupils are equal, reactive to light. Intact eye movements. No JVD. No cervical lym phadenopathy. Neck: Supple. Thyroid is not enlarged. Lungs: Clear to auscultation bilaterally. No rhonchi, wheezing, or crackles. No accessory muscle u se. Heart: Regular rate and rhythm. No extra sounds. Abdomen: Soft, nontender. Bowel sounds positive. No organomegaly. No masses or hernia. No rigidi ty or rebound. Extremities: No edema, clubbing, cyanosis. Intact pulses. Skin: No rash. No nodule. Neurologic: Alert, awake, oriented x3. No acute focal deficits appreciated. Investigations: Troponin is 122 and then 127, BUN 18, creatinine 1.25. Assessment And Recommendations: 1.Near syncope due to hypoglycemia. The patient recovered completely. 2.Elevated troponin. There is no chest pain. This is demand ischemia due to the near syncopal epis ode and sudden drop in his blood pressure. He does follow up with a svp chief marketing officer in [place]. I ask ed him to followup post discharge within a week and to get a stress test as an outpatient basis. 3.Hypertension. Blood pressure is controlled. Cardiology will sign off. SR/MODL Voice ID: [id number] Report ID: [id number]
--- NOTE | 2024-05-15 07:05 | ECHO ---
HEIGHT: 6 ft 0 in WEIGHT: 185 lb 0 oz DATE OF STUDY: 05/12/[address]: Susie Camp MD 2-DIMENSIONAL: YES M.MODE: YES DOPPLER: YES COLOR FLOW: YES TDS: PORTABLE: YES DEFINITY: BUBBLE STUDY: DIAGNOSIS: NON ST ELEVATION MYOCARDIAL INFARCTION CARDIAC HISTORY: CATHERIZATION: SURGERY: PROSTHETIC VALVE: PACEMAKER: MEASUREMENTS (cm) DIASTOLIC (NORMALS) SYSTOLIC (NORMALS) IVSd 1.0 (0.6-1.2) LA Diam 33.4 (1.9-4.0) LVEF 45-50% LVIDd 3.8 (3.5-5.7) LVIDs 3.0 (2.0-3.5) %FS 21% LVPWd 1.0 (0.6-1.2) Ao Diam 3.2 (2.0-3.7) 2 DIMENSIONAL ASSESSMENT: RIGHT ATRIUM: NORMAL LEFT ATRIUM: NORMAL RIGHT VENTRICLE: NORMAL WITH PACEMAKER LEFT VENTRICLE: MILDLY DEPRESSED EJECTION FRACTION TRICUSPID VALVE: MILD TRICUSPID REGURGITATION MITRAL VALVE: SEVERE MITRAL ANNULAR CALCIFICATION PULMONIC VALVE: NORMAL AORTIC VALVE: MODERATE AORTIC INSUFFICIENCY/ AORTIC STENOSIS PERICARDIAL EFFUSION: NONE AORTIC ROOT: NORMAL LEFT VENTRICULAR WALL MOTION: MILD GLOBAL HYPOKINESIS DOPPLER/COLOR FLOW: SEE BELOW COMMENTS: 1. 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 MILD GLOBAL HYPOKINESIS 3. 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 MILD TRICUSPID REGURGITATION 5. 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
== END 2024-05-12 18:32 | disposition home or self-care (01) ==
LOC: ER 10:35 → ERHOLD 15:22 → 4TH 19:43
PROVIDERS: ADMIT Hospitalist; ATTEND Hospitalist
DX: E11.649 Type 2 diabetes mellitus with hypoglycemia without coma (principal); R55 Syncope and collapse; R79.89 Other specified abnormal findings of blood chemistry; I10 Essential (primary) hypertension; E78.5 Hyperlipidemia, unspecified; F32.A Depression, unspecified
CPT/HCPCS: 96361; 93005; 93306; 85025 ×2; 81001; 80048; 36415; 80061; 82947 ×7; 80076; 83036; 84484 ×3; 80053; 71045; 96360; 99285; J7042; G0378

== ENCOUNTER 2024-12-14 12:39 | Inpatient (IN) | payer OTHER ==
--- OUTSIDE RECORDS SUMMARY | 2024-12-14 12:46 | XMS REPORT | Continuity of Care Document ---
Author Name Unknown Address [address] [facility] [place] [address] [facility] [place] [facility] [address] [facility] [place] [address] Care Team Providers Care Customer Professional Name Role Phone KEYONNASTEFANI Fransico Primary Care Physician Unavailab FAY Schreiber Attending Clinician UnavailJUSTIN Antonio Attending Clinician UnaJUSTIN Pierre Attending Clinician UnaJustin Pierre MD Attending Clinician + Fay Barrios MD KRahHRah Attending Clinician [phone] ALISTAIR TAYLOR Attending Clinician Unavailable ALISTAIR TAYLOR Attending Clinician Unavailable Alistair Mims Attending Clinician [phone] 2, [facility] Attending Clinician Unavailable Fay Barrios MDHRha Attending Clinician + [phone] Doctor Unassigned, [place] Attending Clinician Matt todd 2, [facility] Attending Clinician Unavailable FAZAL YOUNG Attending Clinician Unavailable Fazal Young MD Attending Clinician [phone] DANYEL THURMAN Attending Clinician Unavailable JOANA MONGE Attending Clinician Unavailable Joana Almonte Attending Clinician [phone] Visit, [facility] Attending Clinician Unavailable PERLAAQ Attending Clinician Unavailable PRISCA CHEUNG Attending Clinician Unavailab Prisca Mayen DO Attending Clinician [phone] Anayeli RICHTER, Cydney Attending Clinician [phone] ANNA GOODMAN Attending Clinician Unavailab Anna Alavrez DO Attending Clinician [phone] Loreto Terry MD Attending Clinician [phone] Pob, [facility] Main Attending Clinician Unavailshivani Thurman MD, Danyel Attending Clinician [phone] LIBAN BARRERA Attending Clinician Unavail able Nurse, [facility] Pob Immunization Attending Clinician Unavailable Liban Barrera DO Attending Clinician [phone] NITZA DE JESUS Attending Clinician Unavailable RUPESH KLINE Attending Clinician Unavailable Alma Melo Attending Clinician [phone] Ashlye Bonilla MD Attending Clinician + Laurel Butcher MD Attending Clinici an LAUREL BUTCHER Attending Clinician Unavailable Nitza De Jesus DO Attending Clinician [phone] Chapis Ellis MD Attending Clinician +[phone] CHAPIS ELLIS Attending Clinician Unavailabl e Migdalia LIBRARY PARAPROFESSIONAL, Gene Mitchell Attending Clinician [phone] WIN SALMON Attending Clinician Unavailable Rosalino Boggs MD Attending Clinician [phone], [facility] Attending Clinician Unavailable Mauricio Mathews MD Attending Clinician [phone] Ann Marie Ward MD Attending Clinician [phone] ANN MARIE WARD Attending Clinician Unavailabl e SAMIRAOLE, GENE MITCHELL Attending Clinician Soha Albarado RN, Lisa Attending Clinician [phone] Chapis Buckner MD Attending Clinician [phone] ASHLEY BONILLA Attending Clinician Moriah Candelaria MD, Gris Attending Clinician Gera RICHTER, Lulú Bee Attending Clinician + MAURICIO MATHEWS Attending Clinician Unavailab JUSTIN Tobias Admitting Clinician Unav ailALISTAIR Mcdermott Admitting Clinician Unavailable FAY BARRIOS Admitting Clinician UnavailFAZAL Rizo Admitting Clinician Unavailable DANYEL THURMAN Admitting Clinician Unavailable LORETO TERRY Admitting Clinician Unavailable Harrison RICHTER, Loreto Admitting Clinician [phone] Cuca RICHTER, Danyel Admitting Clinician [phone] LULÚ BOSS Admitting Clinician Moriah Boss MD, Lulú Bee Admitting Clinician + MAURICIO MATHEWS Admitting Clinician Unavailab heather Payers Payer Name Policy Type Policy Number Effective Date Expirati on Date Source MEDICARE PART A \\T\\ B [id number] 1999 00:00:00 [employer] HMO [id number] 2017 00:00:00 COMMERCIAL NON-CONTRACT GENERIC [id number] 2015 00:00:00 Problems Condition Name Condition Details Condition Category Status Onset Date Resolution Date Last Treatment Date Treating Clinician Comments Source Incarcerat ed umbilical hernia Incarcerat ed umbilical hernia Disease Active 4-14 00:00: 00 [facility] 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 Disease Active 7-16 00:00: 00 [facility] HFrEF (heart failure with reduced ejection fraction) HFrEF (heart failure with reduced ejection fraction) Disease Active -17 00:00: 00 [facility] 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 Disease Active -17 00:00: 00 [facility] 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 Disease Active 10-09 00:00: 00 [facility] 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 Disease Active 10-09 00:00: 00 [facility] 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, with long-term current use of insulin 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, with long-term current use of insulin Disease Active 10-08 00:00: 00 [facility] 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, with long-term current use of insulin 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, with long-term current use of insulin Disease Active 10-08 00:00: 00 [facility] 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, with long-term current use of insulin 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, with long-term current use of insulin Disease Active 10-08 00:00: 00 [facility] Essential hypertensi on Essential hypertensi on Disease Active 08-15 00:00: 00 [facility] Other hyperlipid emia Other hyperlipid emia Disease Active 08-15 00:00: 00 [facility] KSENIA (acute kidney injury) KSENIA (acute kidney injury) Disease Active 08-15 00:00: 00 [facility] KSENIA (acute kidney injury) KSENIA (acute kidney injury) Disease Active 08-15 00:00: 00 [facility] NSTEMI (non-ST elevated myocardial infarction ) NSTEMI (non-ST elevated myocardial infarction ) Disease Active 08-14 00:00: 00 [facility] Acute diastolic congestive heart failure Acute diastolic congestive heart failure Disease Resolve d 08-15 00:00: 00 2020-10-09 00:00:00 2020-10-09 13:25:06 [facility] Allergies, Adverse Reactions, Alerts Allergy Name Allergy Type Status Severity Reaction(s) Onset Date Inactive Date Treating Clinician Comments Source NO KNOWN ALLERGIE S Drug Class Active [facility] Social History Social Habit Start Date Stop Date Quantity Comments Source History of tobacco use Current smoker [facility] Sexual orientation [facility] History of Social function 2024-05-30 00:00:00 2024-05-30 00:00:00 [facility] Alcoholic beverage intake 2024-05-30 00:00:00 2024-05-30 00:00:00 Current non-drinker of alcohol (finding) [facility] Alcohol intake 2023-05-31 00:00:00 2023-05-31 00:00:00 Current non-drinker of alcohol (finding) [facility] Exposure to SARS-CoV-2 (event) 2022-10-10 00:00:00 2022-10-20 13:49:00 Not sure [facility] Tobacco use and exposure 2022-05-11 00:00:00 2022-05-11 00:00:00 Smokeless tobacco non-user [facility] Tobacco Comment 2022-05-11 00:00:00 2022-05-11 00:00:00 quit 15-16 years ago [facility] Sex assigned at 1935 00:00:00 1935 00:00:00 [facility] Smoking Status Start Date Stop Date Source Ex-smoker 2022-05-11 00:00:00 2022-05-11 00:00:00 [facility] Medications Ordered Medication Name Filled Medication Name Start Date Stop Date Current Medication? Ordering Clinician Indication Dosage Frequency Signature (SIG) Comments Components Source simvastatin 40 mg tablet 08-31 00:00: 00 Yes [id number] 40mg TAKE 1 TABLET BY MOUTH EVERYDAY AT BEDTIME [facility] metoprolol succinate XL 25 mg 24 hr tablet 2023-07 00:00: 00 Yes [id number] 25mg TAKE 1 TABLET BY MOUTH EVERY MORNING AND EVENING. [facility] simvastatin 40 mg tablet 2023-07 00:00: 00 08-31 00:00 :00 No [id number] 40mg TAKE 1 TABLET BY MOUTH EVERYDAY AT BEDTIME [facility] pantoprazol e (PROTONIX) EC tablet 40 mg 04-18:15: 00 04-18 23:15 :00 No 40mg 40 mg, Oral, ONCE, 1 dose, On Wed04/18/24 at 1815, SOURAV [facility] metoclopram lakia HCl (REGLAN) tablet 5 mg 04-18 23:10: 00 04-18 23:15 :00 No 5mg 5 mg, Oral, ONCE, 1 dose, On Wed04/18/24 at 1815, SOURAV [facility] NaCl 0.9% (NS) bolus infusion 500 mL 04-18 22:30: 00 04-18 23:23 :00 No 500mL at 999 mL/hr, 500 mL, IV Infusion, ONCE, 1 dose, On Wed04/18/24 at 1730, STAT [facility] sodium chloride (NS) injection 5 mL 04-18 21:35: 26 Yes 5mL 5 mL, Intravenou s, PRN, Starting on Wed04/18/24 at 1635, Until Discontinu ed, Routine, IV line flushing [facility] metoprolol succinate XL 25 mg 24 hr tablet -14 00:00: 00 06-06 00:00 :00 No [id number] 25mg TAKE 1 TABLET BY MOUTH EVERY MORNING AND EVENING. [facility] perflutren protein-A microsphr (OPTISON) injection 3 mL 12-26 18:45: 00 12-26 19:03 :00 No [id number] 3mL 3 mL, IV Push, ONCE, 1 dose, On Wed12/27/23 at 1345, Routine [facility] citalopram (CELEXA) 10 mg tablet 08-05 10:40: 37 08-05 00:00 :00 No 10mg Take 1 tablet by mouth in the morning. [facility] metoprolol succinate XL 25 mg 24 hr tablet 08-05 00:00: 00 Yes [id number] 25mg Take 1 tablet by mouth every morning and evening. [facility] metoprolol succinate XL 25 mg 24 hr tablet 08-05 00:00: 00 08-05 00:00 :00 No [id number] 50mg Take 2 tablets by mouth every morning and evening. [facility] losartan 25 mg tablet 2022-07 00:00: 00 Yes [id number] 25mg Take 1 tablet by mouth every morning. [facility] furosemide 20 mg tablet 2022-07 00:00: 00 Yes [id number] 20mg Take 1 tablet by mouth in the morning. [facility] simvastatin 40 mg tablet 2022-07 00:00: 00 06-05 00:00 :00 No [id number] 40mg Take 1 tablet by mouth at bedtime. [facility] metoprolol succinate XL 25 mg 24 hr tablet 2022-07 00:00: 00 08-05 00:00 :00 No [id number] 25mg Take 1 tablet by mouth every morning and evening. [facility] LOSARTAN 25 mg tablet 2022-07 00:00: 00 05-31 00:00 :00 No [id number] 25mg TAKE 1 TABLET BY MOUTH EVERY DAY IN THE MORNING [facility] METOPROLOL SUCCINATE XL 25 mg 24 hr tablet 2022-07 0- 00:00: 00 05-31 00:00 :00 No [id number] 25mg TAKE 1 TABLET BY MOUTH IN THE MORNING AND IN THE EVENING [facility] B Complex Vitamins tablet 2022-07 0 00:00: 00 Yes [id number] 1{tbl} Take 1 tablet by mouth in the morning. [facility] Cholecalcif samir, Vitamin D3, (VITAMIN D3) 125 mcg (5,000 unit) tablet 2022-07 0 00:00: 00 Yes [id number] 5000U Take 1 tablet by mouth in the morning. [facility] Oral Electrolyte s (PEDIALYTE ADVANCED CARE) solution 2022-07 0 00:00: 00 08-05 00:00 :00 No [id number] 500mL Take 500 mL by mouth every 6 (six) hours. [facility] metoclopram lakia HCl 10 mg tablet 2022-07 00:00: 00 08-05 00:00 :00 No [id number] 10mg Take 1 tablet by mouth every 6 (six) hours as needed (Hiccups). [facility] losartan 25 mg tablet 09-29 10:09: 47 09-29 00:00 :00 No 1 tablet [facility] magnesium oxide 400 mg magnesium Tab 09-29 00:00: 00 08-05 00:00 :00 No [id number] 400mg Take 400 mg by mouth in the morning and 400 mg in the evening. [facility] simvastatin 40 mg tablet 09-29 00:00: 00 05-31 00:00 :00 No [id number] 40mg Take 1 tablet by mouth at bedtime. [facility] furosemide 20 mg tablet 09-29 00:00: 00 05-31 00:00 :00 No [id number] 20mg Take 1 tablet by mouth in the morning. [facility] losartan 25 mg tablet 09-29 00:00: 00 05-28 00:00 :00 No [id number] 25mg Take 1 tablet by mouth in the morning. [facility] metoprolol succinate XL 25 mg 24 hr tablet 09-29 00:00: 00 05-20 00:00 :00 No [id number] 25mg Take 1 tablet by mouth in the morning and 1 tablet in the evening. [facility] digoxin 125 mcg (0.125 mg) tablet 09-29 00:00: 00 10-20 00:00 :00 No [id number] 125ug Take 1 tablet by mouth every other day. [facility] citalopram (CELEXA) 10 mg tablet 09-22 11:17: 08 Yes 10mg Take 1 tablet by mouth in the morning. [facility] losartan 25 mg tablet 09-22 11:17: 08 Yes 1 tablet [facility] NaCl 0.9% (NS) bolus infusion 500 mL 09-15 21:00: 00 09-15 21:54 :00 No 500mL at 999 mL/hr, 500 mL, IV Infusion, ONCE, 1 dose, On Wed09/15/22 at 1500, STAT [facility] NaCl 0.9% (NS) bolus infusion 1,000 mL 09-15 19:30: 00 09-15 21:30 :00 No 1000mL at 999 mL/hr, 1,000 mL, IV Infusion, ONCE, 1 dose, On Wed09/15/22 at 1330, STAT [facility] furosemide 20 mg tablet 09-15 00:00: 00 09-29 00:00 :00 No [id number] 20mg Take 1 tablet by mouth in the morning. [facility] insulin degludec (TRESIBA FLEXTOUCH U-200 SC) 09-14 13:07: 47 Yes 30U inject 30 Units under the skin daily. [facility] furosemide 20 mg tablet 08-31 14:49: 34 08-31 00:00 :00 No 20mg Take 20 mg by mouth every morning and evening. [facility] empaglifloz in 10 mg 08-31 00:00: 00 09-22 00:00 :00 No [id number] 10mg Take 1 tablet by mouth in the morning. [facility] furosemide 20 mg tablet 08-31 00:00: 00 09-15 00:00 :00 No [id number] 20mg Take 1 tablet by mouth every morning and evening. [facility] hydrALAZINE 10 mg tablet 2021-07 10:01: 23 07-13 00:00 :00 No 10mg Take 10 mg by mouth in the morning and 10 mg at noon and 10 mg in the evening. [facility] citalopram (CELEXA) 10 mg tablet 2021-07 08:49: 05 Yes 10mg Take 10 mg by mouth daily. [facility] furosemide 20 mg tablet 2021-07 08:48: 45 Yes 20mg Take 20 mg by mouth every morning and evening. [facility] insulin degludec (TRESIBA FLEXTOUCH U-200 SC) 2021-07 08:48: 45 Yes 30U inject 30 Units under the skin daily. [facility] hydrALAZINE 10 mg tablet 2021-07 08:48: 45 Yes 10mg Take 10 mg by mouth in the morning and 10 mg at noon and 10 mg in the evening. [facility] hydrALAZINE 10 mg tablet 2021-07 00:00: 00 08-31 00:00 :00 No 10mg Take 1 tablet by mouth in the morning and 1 tablet in the evening. [facility] furosemide 20 mg tablet 2021-07 08:32: 49 Yes 20mg Take 20 mg by mouth every morning and evening. [facility] simvastatin 40 mg tablet 2021-07 00:00: 00 09-29 00:00 :00 No [id number] 40mg Take 1 tablet by mouth at bedtime. [facility] digoxin 125 mcg (0.125 mg) tablet 2021-07 12:26: 05-07 00:00 :00 No 125ug Take 125 mcg by mouth every 2 (two) days. [facility] metoprolol succinate XL 25 mg 24 hr tablet 2021-07 12:: 05-07 00:00 :00 No 25mg Take 25 mg by mouth 2 (two) times daily. [facility] digoxin 125 mcg (0.125 mg) tablet 2021-07 00:00: 00 09-29 00:00 :00 No [id number] 125ug Take 1 tablet by mouth every other day. [facility] metoprolol succinate XL 25 mg 24 hr tablet 2021-07 00:00: 00 09-29 00:00 :00 No [id number] 25mg Take 1 tablet by mouth in the morning and 1 tablet in the evening. [facility] losartan 25 mg tablet 2021-07 00:00: 00 09-15 00:00 :00 No [id number] 25mg Take 1 tablet by mouth in the morning. [facility] furosemide 20 mg tablet 2021-07 09:15: 51 Yes 20mg Take 20 mg by mouth every morning and evening. [facility] metoprolol succinate XL 25 mg 24 hr tablet 2021-07 09:13: 53 Yes 25mg Take 25 mg by mouth 2 (two) times daily. [facility] digoxin 125 mcg (0.125 mg) tablet 2021-07 09:13: 52 Yes 125ug Take 125 mcg by mouth every 2 (two) days. [facility] hydrALAZINE 10 mg tablet 2021-07 08:54: 00 Yes 10mg Take 10 mg by mouth in the morning and 10 mg at noon and 10 mg in the evening. [facility] furosemide (LASIX) 20 mg tablet 01-23 13:18: 22 Yes 10mg Take 10 mg by mouth every morning and evening. [facility] insulin degludec (TRESIBA FLEXTOUCH U-200 SC) 01-23 12:53: 00 Yes 30U inject 30 Units under the skin daily. [facility] citalopram (CELEXA) 10 mg tablet 12-06 22:14: 34 Yes 10mg Take 10 mg by mouth daily. [facility] digoxin 125 mcg (0.125 mg) tablet 12-06 22:14: 34 Yes 125ug Take 125 mcg by mouth every 2 (two) days. [facility] metoprolol succinate XL (TOPROL XL) 25 mg 24 hr tablet 12-06 22:14: 34 Yes 25mg Take 25 mg by mouth 2 (two) times daily. [facility] fluticasone -umeclidin- vilanter (TRELEGY ELLIPTA) 100-62.5-25 mcg DsDv 12-06 22:13: 53 12-06 00:00 :00 No Inhale. [facility] tiZANidine 4 mg tablet 12-06 22:13: 32 12-06 00:00 :00 No 4mg Take 4 mg by mouth 3 (three) times daily as needed. [facility] montelukast 10 mg tablet 12-06 22:13: 29 12-06 00:00 :00 No 10mg Take 10 mg by mouth daily. [facility] traMADoL 50 mg tablet 8-03 00:00: 00 12-06 00:00 :00 No [id number] 50mg Take 1 tablet by mouth every 6 (six) hours as needed for Pain (scale 7-10). Indication s: acute pain [facility] aspirin 81 mg chewable tablet 02-09 00:00: 00 Yes [id number] 81mg Take 1 tablet by mouth daily. [facility] losartan 25 mg tablet 02-09 00:00: 00 05-07 00:00 :00 No [id number] 25mg Take 1 tablet by mouth daily. [facility] digoxin 125 mcg tablet 02-09 00:00: 00 12-06 00:00 :00 No [id number] .125mg Take 1 tablet by mouth daily. [facility] furosemide 20 mg tablet 02-09 00:00: 00 12-06 00:00 :00 No [id number] 60mg Take 3 tablets by mouth daily. [facility] metoprolol succinate XL 50 mg 24 hr tablet 02-08 00:00: 00 12-06 00:00 :00 No [id number] 50mg Take 1 tablet by mouth 2 (two) times daily with meals. [facility] Colesevelam (WELCHOL) 3.75 gram PwPk 02-07 15:23: 29 02-07 00:00 :00 No Take by mouth. [facility] digoxin 125 mcg (0.125 mg) tablet 11-07 00:00: 00 11-18 00:00 :00 No 125ug Take 1 tablet by mouth daily. [facility] isosorbide dinitrate 10 mg tablet 4-15 00:00: 00 11-11 00:00 :00 No 10mg Take 1 tablet by mouth 3 (three) times daily. [facility] hydrALAZINE 10 mg tablet 4-15 00:00: 00 11-11 00:00 :00 No 10mg Take 1 tablet by mouth 3 (three) times daily. [facility] sodium polystyrene sulfonate 15 gram/60 mL suspension 09 00:00: 00 06-30 00:00 :00 No [id number] 15g Take 60 mL by mouth daily. [facility] simvastatin 40 mg tablet 10-28 00:00: 00 01-27 04:59 :00 No [id number] 40mg Take 1 tablet by mouth at bedtime for 90 days. [facility] magnesium oxide 400 mg magnesium Tab 25 00:00: 00 09-29 00:00 :00 No 400mg Take 400 mg by mouth 2 (two) times daily. [facility] furosemide 20 mg tablet 10-14 00:00: 00 12-06 00:00 :00 No 40mg Take 2 tablets by mouth 2 (two) times daily. [facility] insulin NPH and regular human 70-30 100 unit/mL (70-30) injection 10-09 00:00: 00 Yes [id number] 25U inject 25 Units under the skin 2 (two) times daily before breakfast and dinner. [facility] insulin syr/ndl U100 half idris 0.3 mL 31 gauge x 1/4" Syrg 10-09 00:00: 00 Yes [id number] 200{eac h} 200 Each 2 (two) times daily with meals. [facility] metoprolol succinate XL 50 mg 24 hr tablet 10-09 00:00: 00 02-08 00:00 :00 No [id number] 50mg Take 1 tablet by mouth 2 (two) times daily with meals. [facility] aspirin 81 mg chewable tablet 08-26 00:00: 00 02-08 00:00 :00 No [id number] 81mg Take 1 tablet by mouth daily. [facility] Immunizations Ordered Immunization Name Filled Immunization Name Date Status Comments Source Influenza Virus Vaccine,quad Im,preserve Free 65+ (FLUAD) 2023-05-31 00:00:00 Completed [facility] Influenza Virus Vaccine,quad Im,preserve Free 65+ (FLUAD) 2023-05-31 00:00:00 Completed [facility] Influenza Virus Vaccine,quad Im,preserve Free 65+ 2022-05-11 00:00:00 Completed [facility] Influenza Virus Vaccine,quad Im,preserve Free 65+ 2022-05-11 00:00:00 Completed [facility] Influenza Virus Vaccine,quad Im,preserve Free 65+ 2022-05-11 00:00:00 Completed [facility] Influenza Virus Vaccine,quad Im,preserve Free 652022-05-11 00:00:00 Completed [facility] Influenza Virus Vaccine,quad Im,preserve Free 652022-05-11 00:00:00 Completed [facility] Influenza Virus Vaccine,quad Im,preserve Free 652022-05-11 00:00:00 Completed [facility] Influenza Virus Vaccine,quad Im,preserve Free 65+ 2022-05-11 00:00:00 Completed [facility] Influenza Virus Vaccine,quad Im,preserve Free 652022-05-11 00:00:00 Completed [facility] Influenza Virus Vaccine,quad Im,preserve Free 652022-05-11 00:00:00 Completed [facility] Influenza Virus Vaccine,quad Im,preserve Free 65+ 2022-05-11 00:00:00 Completed [facility] Influenza Virus Vaccine,quad Im,preserve Free 652022-05-11 00:00:00 Completed [facility] Influenza Virus Vaccine,quad Im,preserve Free 65+ 2022-05-11 00:00:00 Completed [facility] Influenza Virus Vaccine,quad Im,preserve Free 652022-05-11 00:00:00 Completed [facility] Influenza Virus Vaccine,quad Im,preserve Free 65+ 2022-05-11 00:00:00 Completed [facility] Influenza Virus Vaccine,quad Im,preserve Free 65+ 2022-05-11 00:00:00 Completed [facility] Influenza Virus Vaccine,quad Im,preserve Free 65+ 2022-05-11 00:00:00 Completed [facility] Influenza Virus Vaccine,quad Im,preserve Free 65+ 2022-05-11 00:00:00 Completed [facility] Influenza Virus Vaccine,quad Im,preserve Free 65+ 2022-05-11 00:00:00 Completed [facility] Influenza Virus Vaccine,quad Im,preserve Free 65+ 2022-05-11 00:00:00 Completed [facility] Influenza Virus Vaccine,quad Im,preserve Free 65+ 2022-05-11 00:00:00 Completed [facility] Influenza Virus Vaccine,quad Im,preserve Free 65+ 2022-05-11 00:00:00 Completed [facility] Influenza Virus Vaccine,quad Im,preserve Free 652022-05-11 00:00:00 Completed [facility] Influenza Virus Vaccine,quad Im,preserve Free 652022-05-11 00:00:00 Completed [facility] Influenza Virus Vaccine,quad Im,preserve Free 652022-05-11 00:00:00 Completed [facility] Influenza Virus Vaccine,quad Im,preserve Free 65+ 2022-05-11 00:00:00 Completed [facility] Influenza Virus Vaccine,quad Im,preserve Free 65+ 2022-05-11 00:00:00 Completed [facility] Influenza Virus Vaccine,quad Im,preserve Free 65+ (FLUAD) 2022-05-11 00:00:00 Completed [facility] Influenza Virus Vaccine,quad Im,preserve Free 65+ (FLUAD) 2022-05-11 00:00:00 Completed [facility] SARS-COV-2 COVID-19 MODERNA 0.25ML BOOSTER VACCINE 2021-06-10 00:00:00 Completed [facility] SARS-COV-2 COVID-19 MODERNA 0.25ML BOOSTER VACCINE 2021-06-10 00:00:00 Completed [facility] SARS-COV-2 COVID-19 MODERNA 0.25ML BOOSTER VACCINE 2021-06-10 00:00:00 Completed [facility] SARS-COV-2 COVID-19 MODERNA 0.25ML BOOSTER VACCINE 2021-06-10 00:00:00 Completed [facility] SARS-COV-2 COVID-19 MODERNA 0.25ML BOOSTER VACCINE 2021-06-10 00:00:00 Completed [facility] SARS-COV-2 COVID-19 MODERNA 0.25ML BOOSTER VACCINE 2021-06-10 00:00:00 Completed [facility] SARS-COV-2 COVID-19 MODERNA 0.25ML BOOSTER VACCINE 2021-06-10 00:00:00 [facility] [facility] SARS-COV-2 COVID-19 MODERNA 0.25ML BOOSTER VACCINE 2021-06-10 00:00:00 Completed [facility] SARS-COV-2 COVID-19 MODERNA 0.25ML BOOSTER VACCINE 2021-06-10 00:00:00 Completed [facility] SARS-COV-2 COVID-19 MODERNA 0.25ML BOOSTER VACCINE 2021-06-10 00:00:00 Completed [facility] SARS-COV-2 COVID-19 MODERNA 0.25ML BOOSTER VACCINE 2021-06-10 00:00:00 Completed [facility] SARS-COV-2 COVID-19 MODERNA 0.25ML BOOSTER VACCINE 2021-06-10 00:00:00 Completed [facility] SARS-COV-2 COVID-19 MODERNA 0.25ML BOOSTER VACCINE 2021-06-10 00:00:00 Completed [facility] SARS-COV-2 COVID-19 MODERNA 0.25ML BOOSTER VACCINE 2021-06-10 00:00:00 Completed [facility] SARS-COV-2 COVID-19 MODERNA 0.25ML BOOSTER VACCINE 2021-06-10 00:00:00 Completed [facility] SARS-COV-2 COVID-19 MODERNA 0.25ML BOOSTER VACCINE 2021-06-10 00:00:00 Completed [facility] SARS-COV-2 COVID-19 MODERNA 0.25ML BOOSTER VACCINE 2021-06-10 00:00:00 Completed [facility] SARS-COV-2 COVID-19 MODERNA 0.25ML BOOSTER VACCINE 2021-06-10 00:00:00 Completed [facility] SARS-COV-2 COVID-19 MODERNA 0.25ML BOOSTER VACCINE 2021-06-10 00:00:00 Completed [facility] SARS-COV-2 COVID-19 MODERNA 0.25ML BOOSTER VACCINE 2021-06-10 00:00:00 Completed [facility] SARS-COV-2 COVID-19 MODERNA 0.25ML BOOSTER VACCINE 2021-06-10 00:00:00 Completed [facility] SARS-COV-2 COVID-19 MODERNA 0.25ML BOOSTER VACCINE 2021-06-10 00:00:00 Completed [facility] SARS-COV-2 COVID-19 MODERNA 0.25ML BOOSTER VACCINE 2021-06-10 00:00:00 Completed [facility] SARS-COV-2 COVID-19 MODERNA 0.25ML BOOSTER VACCINE 2021-06-10 00:00:00 Completed [facility] SARS-COV-2 COVID-19 MODERNA 0.25ML BOOSTER VACCINE 2021-06-10 00:00:00 Completed [facility] SARS-COV-2 COVID-19 MODERNA 0.25ML BOOSTER VACCINE 2021-06-10 00:00:00 Completed [facility] SARS-COV-2 COVID-19 MODERNA 0.25ML BOOSTER VACCINE 2021-06-10 00:00:00 Completed [facility] SARS-COV-2 COVID-19 MODERNA 0.25ML BOOSTER VACCINE 2021-06-10 00:00:00 Completed [facility] SARS-COV-2 COVID-19 MODERNA 0.25ML BOOSTER VACCINE 2021-06-10 00:00:00 Completed [facility] SARS-COV-2 COVID-19 MODERNA 0.25ML BOOSTER VACCINE 2021-06-10 00:00:00 Completed [facility] SARS-COV-2 COVID-19 MODERNA 0.25ML BOOSTER VACCINE 2021-06-10 00:00:00 Completed [facility] SARS-COV-2 COVID-19 MODERNA 0.25ML BOOSTER VACCINE 2021-06-10 00:00:00 Completed SARS-COV-2 COVID-19 MODERNA 0.25ML BOOSTER VACCINE 2021-06-10 00:00:00 Completed SARS-COV-2 COVID-19 MODERNA VACCINE 2020-09-30 00:00:00 Completed [facility] SARS-COV-2 COVID-19 MODERNA VACCINE 2020-09-30 00:00:00 Completed [facility] SARS-COV-2 COVID-19 MODERNA 12+ YRS VACCINE 2020-09-30 00:00:00 Completed [facility] SARS-COV-2 COVID-19 MODERNA 12+ YRS VACCINE 2020-09-30 00:00:00 Completed [facility] SARS-COV-2 COVID-19 MODERNA 12+ YRS VACCINE 2020-09-30 00:00:00 Completed [facility] SARS-COV-2 COVID-19 MODERNA 12+ YRS VACCINE 2020-09-30 00:00:00 Completed [facility] SARS-COV-2 COVID-19 MODERNA 12+ YRS VACCINE 2020-09-30 00:00:00 Completed [facility] SARS-COV-2 COVID-19 MODERNA 12+ YRS VACCINE 2020-09-30 00:00:00 Completed [facility] SARS-COV-2 COVID-19 MODERNA 12+ YRS VACCINE 2020-09-30 00:00:00 Completed [facility] SARS-COV-2 COVID-19 MODERNA 12+ YRS VACCINE 2020-09-30 00:00:00 Completed [facility] SARS-COV-2 COVID-19 MODERNA 12+ YRS VACCINE 2020-09-30 00:00:00 Completed [facility] SARS-COV-2 COVID-19 MODERNA 12+ YRS VACCINE 2020-09-30 00:00:00 Completed [facility] SARS-COV-2 COVID-19 MODERNA 12+ YRS VACCINE 2020-09-30 00:00:00 Completed [facility] SARS-COV-2 COVID-19 MODERNA 12+ YRS VACCINE 2020-09-30 00:00:00 Completed [facility] SARS-COV-2 COVID-19 MODERNA 12+ YRS VACCINE 2020-09-30 00:00:00 Completed [facility] SARS-COV-2 COVID-19 MODERNA 12+ YRS VACCINE 2020-09-30 00:00:00 Completed [facility] SARS-COV-2 COVID-19 MODERNA 12+ YRS VACCINE 2020-09-30 00:00:00 Completed [facility] SARS-COV-2 COVID-19 MODERNA 12+ YRS VACCINE 2020-09-30 00:00:00 Completed [facility] SARS-COV-2 COVID-19 MODERNA 12+ YRS VACCINE 2020-09-30 00:00:00 Completed [facility] SARS-COV-2 COVID-19 MODERNA 12+ YRS VACCINE 2020-09-30 00:00:00 Completed [facility] SARS-COV-2 COVID-19 MODERNA 12+ YRS VACCINE 2020-09-30 00:00:00 Completed [facility] SARS-COV-2 COVID-19 MODERNA 12+ YRS VACCINE 2020-09-30 00:00:00 Completed [facility] SARS-COV-2 COVID-19 MODERNA 12+ YRS VACCINE 2020-09-30 00:00:00 Completed [facility] SARS-COV-2 COVID-19 MODERNA 12+ YRS VACCINE 2020-09-30 00:00:00 Completed [facility] SARS-COV-2 COVID-19 MODERNA 12+ YRS VACCINE 2020-09-30 00:00:00 Completed [facility] SARS-COV-2 COVID-19 MODERNA 12+ YRS VACCINE 2020-09-30 00:00:00 Completed [facility] SARS-COV-2 COVID-19 MODERNA 12+ YRS VACCINE 2020-09-30 00:00:00 Completed [facility] SARS-COV-2 COVID-19 MODERNA 12+ YRS VACCINE 2020-09-30 00:00:00 Completed [facility] SARS-COV-2 COVID-19 MODERNA 12+ YRS VACCINE 2020-09-30 00:00:00 Completed [facility] SARS-COV-2 COVID-19 MODERNA 12+ YRS VACCINE 2020-09-30 00:00:00 Completed [facility] SARS-COV-2 COVID-19 MODERNA 12+ YRS VACCINE 2020-09-30 00:00:00 Completed [facility] SARS-COV-2 COVID-19 MODERNA 12+ YRS VACCINE 2020-09-30 00:00:00 Completed [facility] SARS-COV-2 COVID-19 MODERNA 12+ YRS VACCINE 2020-09-30 00:00:00 Completed [facility] SARS-COV-2 COVID-19 MODERNA VACCINE 2020-09-02 00:00:00 Completed [facility] SARS-COV-2 COVID-19 MODERNA VACCINE 2020-09-02 00:00:00 Completed [facility] SARS-COV-2 COVID-19 MODERNA 12+ YRS VACCINE 2020-09-02 00:00:00 Completed [facility] SARS-COV-2 COVID-19 MODERNA 12+ YRS VACCINE 2020-09-02 00:00:00 Completed [facility] SARS-COV-2 COVID-19 MODERNA 12+ YRS VACCINE 2020-09-02 00:00:00 Completed [facility] SARS-COV-2 COVID-19 MODERNA 12+ YRS VACCINE 2020-09-02 00:00:00 Completed [facility] SARS-COV-2 COVID-19 MODERNA 12+ YRS VACCINE 2020-09-02 00:00:00 Completed [facility] SARS-COV-2 COVID-19 MODERNA 12+ YRS VACCINE 2020-09-02 00:00:00 Completed [facility] SARS-COV-2 COVID-19 MODERNA 12+ YRS VACCINE 2020-09-02 00:00:00 Completed [facility] SARS-COV-2 COVID-19 MODERNA 12+ YRS VACCINE 2020-09-02 00:00:00 Completed [facility] SARS-COV-2 COVID-19 MODERNA 12+ YRS VACCINE 2020-09-02 00:00:00 Completed [facility] SARS-COV-2 COVID-19 MODERNA 12+ YRS VACCINE 2020-09-02 00:00:00 Completed [facility] SARS-COV-2 COVID-19 MODERNA 12+ YRS VACCINE 2020-09-02 00:00:00 Completed [facility] SARS-COV-2 COVID-19 MODERNA 12+ YRS VACCINE 2020-09-02 00:00:00 Completed [facility] SARS-COV-2 COVID-19 MODERNA 12+ YRS VACCINE 2020-09-02 00:00:00 Completed [facility] SARS-COV-2 COVID-19 MODERNA 12+ YRS VACCINE 2020-09-02 00:00:00 Completed [facility] SARS-COV-2 COVID-19 MODERNA 12+ YRS VACCINE 2020-09-02 00:00:00 Completed [facility] SARS-COV-2 COVID-19 MODERNA 12+ YRS VACCINE 2020-09-02 00:00:00 Completed [facility] SARS-COV-2 COVID-19 MODERNA 12+ YRS VACCINE 2020-09-02 00:00:00 Completed [facility] SARS-COV-2 COVID-19 MODERNA 12+ YRS VACCINE 2020-09-02 00:00:00 Completed [facility] SARS-COV-2 COVID-19 MODERNA 12+ YRS VACCINE 2020-09-02 00:00:00 Completed [facility] SARS-COV-2 COVID-19 MODERNA 12+ YRS VACCINE 2020-09-02 00:00:00 Completed [facility] SARS-COV-2 COVID-19 MODERNA 12+ YRS VACCINE 2020-09-02 00:00:00 Completed [facility] SARS-COV-2 COVID-19 MODERNA 12+ YRS VACCINE 2020-09-02 00:00:00 Completed [facility] SARS-COV-2 COVID-19 MODERNA 12+ YRS VACCINE 2020-09-02 00:00:00 Completed [facility] SARS-COV-2 COVID-19 MODERNA 12+ YRS VACCINE 2020-09-02 00:00:00 Completed [facility] SARS-COV-2 COVID-19 MODERNA 12+ YRS VACCINE 2020-09-02 00:00:00 Completed [facility] SARS-COV-2 COVID-19 MODERNA 12+ YRS VACCINE 2020-09-02 00:00:00 Completed [facility] SARS-COV-2 COVID-19 MODERNA 12+ YRS VACCINE 2020-09-02 00:00:00 Completed [facility] SARS-COV-2 COVID-19 MODERNA 12+ YRS VACCINE 2020-09-02 00:00:00 Completed [facility] SARS-COV-2 COVID-19 MODERNA 12+ YRS VACCINE 2020-09-02 00:00:00 Completed [facility] SARS-COV-2 COVID-19 MODERNA 12+ YRS VACCINE 2020-09-02 00:00:00 Completed [facility] SARS-COV-2 COVID-19 MODERNA 12+ YRS VACCINE 2020-09-02 00:00:00 Completed [facility] Influenza High Dose 2019-06-12 00:00:00 Completed [facility] Influenza High Dose 2019-06-12 00:00:00 Completed [facility] Influenza High Dose 2019-06-12 00:00:00 Completed [facility] Influenza High Dose 2019-06-12 00:00:00 Completed [facility] Influenza High Dose 2019-06-12 00:00:00 Completed [facility] Influenza High Dose 2019-06-12 00:00:00 Completed [facility] Influenza High Dose 2019-06-12 00:00:00 Completed [facility] Influenza High Dose 2019-06-12 00:00:00 Completed [facility] Influenza High Dose 2019-06-12 00:00:00 Completed [facility] Influenza High Dose 2019-06-12 00:00:00 Completed [facility] Influenza High Dose 2019-06-12 00:00:00 Completed [facility] Influenza High Dose 2019-06-12 00:00:00 Completed [facility] Influenza High Dose 2019-06-12 00:00:00 Completed [facility] Influenza High Dose 2019-06-12 00:00:00 Completed [facility] Influenza High Dose 2019-06-12 00:00:00 Completed [facility] Influenza High Dose 2019-06-12 00:00:00 Completed [facility] Influenza High Dose 2019-06-12 00:00:00 Completed [facility] Influenza High Dose 2019-06-12 00:00:00 Completed [facility] Influenza High Dose 2019-06-12 00:00:00 Completed [facility] Influenza High Dose 2019-06-12 00:00:00 Completed [facility] Influenza High Dose 2019-06-12 00:00:00 Completed [facility] Influenza High Dose 2019-06-12 00:00:00 Completed [facility] Influenza High Dose 2019-06-12 00:00:00 Completed [facility] Influenza High Dose 2019-06-12 00:00:00 Completed [facility] Influenza High Dose 2019-06-12 00:00:00 Completed [facility] Influenza High Dose 2019-06-12 00:00:00 Completed [facility] Influenza High Dose 2019-06-12 00:00:00 Completed [facility] Influenza High Dose 2019-06-12 00:00:00 Completed [facility] Influenza High Dose 2019-06-12 00:00:00 Completed [facility] Influenza High Dose 2019-06-12 00:00:00 Completed [facility] Influenza High Dose 2019-06-12 00:00:00 Completed [facility] Influenza, High-Dose, Trivalent, PF (FLUZONE) 2019-06-12 00:00:00 Completed [facility] Influenza, High-Dose, Trivalent, PF (FLUZONE) 2019-06-12 00:00:00 Completed [facility] Influenza High Dose Unknown Completed [facility] SARS-COV-2 COVID-19 MODERNA 12+ YRS VACCINE Unknown Completed [facility] SARS-COV-2 COVID-19 MODERNA 0.25ML BOOSTER VACCINE Unknown Completed [facility] Influenza Virus Vaccine,quad Im,preserve Free 65+ (FLUAD) Unknown Completed [facility] Influenza High Dose Unknown Completed [facility] SARS-COV-2 COVID-19 MODERNA 12+ YRS VACCINE Unknown Completed [facility] Influenza High Dose Unknown Completed [facility] SARS-COV-2 COVID-19 MODERNA 12+ YRS VACCINE Unknown Completed [facility] Influenza High Dose Unknown Completed [facility] SARS-COV-2 COVID-19 MODERNA 12+ YRS VACCINE Unknown Completed [facility] Influenza High Dose Unknown Completed [facility] SARS-COV-2 COVID-19 MODERNA 12+ YRS VACCINE Unknown Completed [facility] SARS-COV-2 COVID-19 MODERNA 0.25ML BOOSTER VACCINE Unknown Completed [facility] Influenza Virus Vaccine,quad Im,preserve Free 65+ (FLUAD) Unknown Completed [facility] Influenza High Dose Unknown Completed [facility] SARS-COV-2 COVID-19 MODERNA 12+ YRS VACCINE Unknown Completed [facility] SARS-COV-2 COVID-19 MODERNA 0.25ML BOOSTER VACCINE Unknown Completed [facility] Influenza Virus Vaccine,quad Im,preserve Free 65+ (FLUAD) Unknown Completed [facility] Influenza High Dose Unknown Completed [facility] SARS-COV-2 COVID-19 MODERNA 12+ YRS VACCINE Unknown Completed [facility] SARS-COV-2 COVID-19 MODERNA 0.25ML BOOSTER VACCINE Unknown Completed [facility] Influenza Virus Vaccine,quad Im,preserve Free 65+ (FLUAD) Unknown Completed [facility] Influenza High Dose Unknown Completed [facility] SARS-COV-2 COVID-19 MODERNA 12+ YRS VACCINE Unknown Completed [facility] SARS-COV-2 COVID-19 MODERNA 0.25ML BOOSTER VACCINE Unknown Completed [facility] Influenza Virus Vaccine,quad Im,preserve Free 65+ (FLUAD) Unknown Completed [facility] Influenza High Dose Unknown Completed [facility] SARS-COV-2 COVID-19 MODERNA 12+ YRS VACCINE Unknown Completed [facility] SARS-COV-2 COVID-19 MODERNA 0.25ML BOOSTER VACCINE Unknown Completed [facility] Influenza Virus Vaccine,quad Im,preserve Free 65+ (FLUAD) Unknown Completed [facility] Influenza High Dose Unknown Completed [facility] SARS-COV-2 COVID-19 MODERNA 12+ YRS VACCINE Unknown Completed [facility] SARS-COV-2 COVID-19 MODERNA 0.25ML BOOSTER VACCINE Unknown Completed [facility] Influenza Virus Vaccine,quad Im,preserve Free 65+ (FLUAD) Unknown Completed [facility] Influenza High Dose Unknown Completed [facility] SARS-COV-2 COVID-19 MODERNA 12+ YRS VACCINE Unknown Completed [facility] SARS-COV-2 COVID-19 MODERNA 0.25ML BOOSTER VACCINE Unknown Completed [facility] Influenza Virus Vaccine,quad Im,preserve Free 65+ (FLUAD) Unknown Completed [facility] Influenza High Dose Unknown Completed [facility] SARS-COV-2 COVID-19 MODERNA 12+ YRS VACCINE Unknown Completed [facility] SARS-COV-2 COVID-19 MODERNA 0.25ML BOOSTER VACCINE Unknown Completed [facility] Influenza Virus Vaccine,quad Im,preserve Free 65+ (FLUAD) Unknown Completed [facility] Influenza High Dose Unknown Completed [facility] SARS-COV-2 COVID-19 MODERNA 12+ YRS VACCINE Unknown Completed [facility] SARS-COV-2 COVID-19 MODERNA 0.25ML BOOSTER VACCINE Unknown Completed [facility] Influenza Virus Vaccine,quad Im,preserve Free 65+ (FLUAD) Unknown Completed [facility] Influenza High Dose Unknown Completed [facility] SARS-COV-2 COVID-19 MODERNA 12+ YRS VACCINE Unknown Completed [facility] SARS-COV-2 COVID-19 MODERNA 0.25ML BOOSTER VACCINE Unknown Completed [facility] Influenza Virus Vaccine,quad Im,preserve Free 65+ (FLUAD) Unknown Completed [facility] Influenza High Dose Unknown Completed [facility] SARS-COV-2 COVID-19 MODERNA 12+ YRS VACCINE Unknown Completed [facility] SARS-COV-2 COVID-19 MODERNA 0.25ML BOOSTER VACCINE Unknown Completed [facility] Influenza Virus Vaccine,quad Im,preserve Free 65+ (FLUAD) Unknown Completed [facility] Influenza High Dose Unknown Completed [facility] SARS-COV-2 COVID-19 MODERNA 12+ YRS VACCINE Unknown Completed [facility] SARS-COV-2 COVID-19 MODERNA 0.25ML BOOSTER VACCINE Unknown Completed [facility] Influenza Virus Vaccine,quad Im,preserve Free 65+ (FLUAD) Unknown Completed [facility] Influenza High Dose Unknown Completed [facility] SARS-COV-2 COVID-19 MODERNA 12+ YRS VACCINE Unknown Completed [facility] SARS-COV-2 COVID-19 MODERNA 0.25ML BOOSTER VACCINE Unknown Completed [facility] Influenza Virus Vaccine,quad Im,preserve Free 65+ (FLUAD) Unknown Completed [facility] Influenza High Dose Unknown Completed [facility] SARS-COV-2 COVID-19 MODERNA 12+ YRS VACCINE Unknown Completed [facility] SARS-COV-2 COVID-19 MODERNA 0.25ML BOOSTER VACCINE Unknown Completed [facility] Influenza Virus Vaccine,quad Im,preserve Free 65+ (FLUAD) Unknown Completed [facility] Influenza High Dose Unknown Completed [facility] SARS-COV-2 COVID-19 MODERNA 12+ YRS VACCINE Unknown Completed [facility] SARS-COV-2 COVID-19 MODERNA 0.25ML BOOSTER VACCINE Unknown Completed [facility] Influenza Virus Vaccine,quad Im,preserve Free 65+ (FLUAD) Unknown Completed [facility] Influenza High Dose Unknown Completed [facility] SARS-COV-2 COVID-19 MODERNA 12+ YRS VACCINE Unknown Completed [facility] SARS-COV-2 COVID-19 MODERNA 0.25ML BOOSTER VACCINE Unknown Completed [facility] Influenza Virus Vaccine,quad Im,preserve Free 65+ (FLUAD) Unknown Completed [facility] Influenza High Dose Unknown Completed [facility] SARS-COV-2 COVID-19 MODERNA 12+ YRS VACCINE Unknown Completed [facility] SARS-COV-2 COVID-19 MODERNA 0.25ML BOOSTER VACCINE Unknown Completed [facility] Influenza Virus Vaccine,quad Im,preserve Free 65+ (FLUAD) Unknown Completed [facility] Influenza High Dose Unknown Completed [facility] SARS-COV-2 COVID-19 MODERNA 12+ YRS VACCINE Unknown Completed [facility] SARS-COV-2 COVID-19 MODERNA 0.25ML BOOSTER VACCINE Unknown Completed [facility] Influenza Virus Vaccine,quad Im,preserve Free 65+ (FLUAD) Unknown Completed [facility] Influenza, High-Dose, Trivalent, PF (FLUZONE) Unknown Completed [facility] SARS-COV-2 COVID-19 MODERNA 12+ YRS VACCINE Unknown Completed [facility] SARS-COV-2 COVID-19 MODERNA 0.25ML BOOSTER VACCINE Unknown Completed [facility] Influenza Virus Vaccine,quad Im,preserve Free 65+ (FLUAD) Unknown Completed [facility] Vital Signs Vital Name Observation Time Observation Value Comments S ource Systolic blood pressure 2024-05-30 16:35:00 136 mm[Hg] [facility] Diastolic blood pressure 2024-05-30 16:35:00 75 mm[Hg] [facility] Heart rate 2024-05-30 16:35:00 73 /min [facility] Respiratory rate 2024-05-30 16:35:00 16 /min [facility] Body height 2024-05-30 16:35:00 188 cm [facility] Body weight 2024-05-30 16:35:00 76.204 kg [facility] BMI 2024-05-30 16:35:00 21.57 kg/m2 [facility] Oxygen saturation in Arterial blood by Pulse oximetry 2024-05-30 16:35:00 97 /min [facility] Systolic blood pressure 2024-04-19 00:00:00 130 mm[Hg] [facility] Diastolic blood pressure 2024-04-19 00:00:00 76 mm[Hg] [facility] Heart rate 2024-04-19 00:00:00 65 /min [facility] Body temperature 2024-04-19 00:00:00 36.56 [place] [facility] Respiratory rate 2024-04-19 00:00:00 20 /min [facility] Oxygen saturation in Arterial blood by Pulse oximetry 2024-04-19 00:00:00 99 /min [facility] Body height 2024-04-18 21:30:00 188 cm [facility] Body weight 2024-04-18 21:30:00 75.751 kg [facility] BMI 2024-04-18 21:30:00 21.44 kg/m2 [facility] Systolic blood pressure 2024-04-04 17:54:00 139 mm[Hg] [facility] Diastolic blood pressure 2024-04-04 17:54:00 76 mm[Hg] [facility] Heart rate 2024-04-04 17:54:00 67 /min [facility] Oxygen saturation in Arterial blood by Pulse oximetry 2024-04-04 17:54:00 97 /min [facility] Respiratory rate 2024-04-04 17:51:00 18 /min [facility] Body height 2024-04-04 17:51:00 188 cm [facility] Body weight 2024-04-04 17:51:00 76.114 kg [facility] BMI 2024-04-04 17:51:00 21.54 kg/m2 [facility] Systolic blood pressure 2023-12-03 18:00:00 145 mm[Hg] [facility] Diastolic blood pressure 2023-12-03 18:00:00 73 mm[Hg] [facility] Heart rate 2023-12-03 18:00:00 58 /min [facility] Oxygen saturation in Arterial blood by Pulse oximetry 2023-12-03 18:00:00 96 /min [facility] Respiratory rate 2023-12-03 17:58:00 18 /min [facility] Body height 2023-12-03 17:58:00 182.9 cm [facility] Body weight 2023-12-03 17:58:00 78.926 kg [facility] BMI 2023-12-03 17:58:00 23.60 kg/m2 [facility] Systolic blood pressure 2023-08-05 16:14:00 133 mm[Hg] [facility] Diastolic blood pressure 2023-08-05 16:14:00 83 mm[Hg] [facility] Heart rate 2023-08-05 16:14:00 66 /min [facility] Body height 2023-08-05 16:14:00 188 cm [facility] Body weight 2023-08-05 16:14:00 78.926 kg [facility] BMI 2023-08-05 16:14:00 22.34 kg/m2 [facility] Oxygen saturation in Arterial blood by Pulse oximetry 2023-08-05 16:14:00 98 /min [facility] Systolic blood pressure 2023-05-31 19:01:00 115 mm[Hg] [facility] Diastolic blood pressure 2023-05-31 19:01:00 67 mm[Hg] [facility] Heart rate 2023-05-31 19:01:00 75 /min [facility] Respiratory rate 2023-05-31 19:01:00 24 /min [facility] Body weight 2023-05-31 19:01:00 77.565 kg [facility] BMI 2023-05-31 19:01:00 21.96 kg/m2 [facility] Oxygen saturation in Arterial blood by Pulse oximetry 2023-05-31 19:01:00 97 /min [facility] Systolic blood pressure 2023-04-27 18:43:00 103 mm[Hg] [facility] Diastolic blood pressure 2023-04-27 18:43:00 79 mm[Hg] [facility] Heart rate 2023-04-27 18:43:00 72 /min [facility] Body temperature 2023-04-27 18:43:00 36.89 [place] [facility] Respiratory rate 2023-04-27 18:43:00 18 /min [facility] Body height 2023-04-27 18:43:00 188 cm [facility] Body weight 2023-04-27 18:43:00 75.751 kg [facility] BMI 2023-04-27 18:43:00 21.44 kg/m2 [facility] [facility] saturation in Arterial blood by Pulse oximetry 2023-04-27 18:43:00 97 /min [facility] Systolic blood pressure 2023-01-27 18:46:00 114 mm[Hg] [facility] Diastolic blood pressure 2023-01-27 18:46:00 67 mm[Hg] [facility] Heart rate 2023-01-27 18:46:00 69 /min Unive [facility] Body height 2023-01-27 18:46:00 185.4 cm Univ [facility] Body weight 2023-01-27 18:46:00 77.747 kg [facility] BMI 2023-01-27 18:46:00 22.61 kg/m2 [facility] in Arterial blood by Pulse oximetry 2023-01-27 18:46:00 96 /min [facility] Systolic blood pressure 2022-12-30 15:06:00 149 mm[Hg] [facility] Diastolic blood pressure 2022-12-30 15:06:00 80 mm[Hg] [facility] Heart rate 2022-12-30 15:06:00 64 /min [facility] 2022-12-30 15:06:00 188 cm [facility] weight 2022-12-30 15:06:00 78.291 kg [facility] BMI 2022-12-30 15:06:00 22.16 kg/m2 [facility] in Arterial blood by Pulse oximetry 2022-12-30 15:06:00 98 /min [facility] Systolic blood pressure 2022-10-20 19:08:00 127 mm[Hg] [facility] Diastolic blood pressure 2022-10-20 19:08:00 63 mm[Hg] [facility] Heart rate 2022-10-20 19:08:00 66 /min Unive [facility] Respiratory rate 2022-10-20 19:08:00 20 /min [facility] Body height 2022-10-20 19:08:00 188 cm Univ [facility] Body weight 2022-10-20 19:08:00 7.076 kg Univ [facility] BMI 2022-10-20 19:08:00 2.00 kg/m2 Unive [facility] Oxygen saturation in Arterial blood by Pulse oximetry 2022-10-20 19:08:00 95 /min [facility] Systolic blood pressure 2022-09-22 17:19:00 128 mm[Hg] [facility] Diastolic blood pressure 2022-09-22 17:19:00 65 mm[Hg] [facility] Heart rate 2022-09-22 17:19:00 63 /min [facility] 2022-09-22 17:19:00 188 cm Univ [facility] Body weight 2022-09-22 17:19:00 78.79 kg Univ [facility] BMI 2022-09-22 17:19:00 22.30 kg/m2 Univ [facility] Oxygen saturation in Arterial blood by Pulse oximetry 2022-09-22 17:19:00 99 /min [facility] Systolic blood pressure 2022-09-15 21:54:00 133 mm[Hg] [facility] Diastolic blood pressure 2022-09-15 21:54:00 66 mm[Hg] [facility] Heart rate 2022-09-15 21:54:00 73 /min Unive [facility] Respiratory rate 2022-09-15 21:54:00 19 /min [facility] Oxygen saturation in Arterial blood by Pulse oximetry 2022-09-15 21:54:00 98 /min [facility] Body temperature 2022-09-15 19:08:00 36.5 Alee [facility] Body height 2022-09-15 19:08:00 188 cm [facility] Body weight 2022-09-15 19:08:00 75.751 kg [facility] BMI 2022-09-15 19:08:00 21.44 kg/m2 Univ [facility] Systolic blood pressure 2022-09-14 19:45:00 93 mm[Hg] [facility] Diastolic blood pressure 2022-09-14 19:45:00 53 mm[Hg] [facility] Heart rate 2022-09-14 19:45:00 69 /min [facility] 2022-09-14 19:03:00 19 /min [facility] Body height 2022-09-14 19:03:00 188 cm Univ [facility] Body weight 2022-09-14 19:03:00 77.021 kg Univ [facility] BMI 2022-09-14 19:03:00 21.80 kg/m2 Univ [facility] Oxygen saturation in Arterial blood by Pulse oximetry 2022-09-14 19:03:00 91 /min [facility] Systolic blood pressure 2022-08-31 20:30:00 98 mm[Hg] [facility] Diastolic blood pressure 2022-08-31 20:30:00 58 mm[Hg] [facility] Heart rate 2022-08-31 20:30:00 72 /min Unive [facility] Respiratory rate 2022-08-31 20:26:00 19 /min [facility] Body height 2022-08-31 20:26:00 188 cm [facility] Body weight 2022-08-31 20:26:00 78.926 kg [facility] BMI 2022-08-31 20:26:00 22.34 kg/m2 [facility] Oxygen saturation in Arterial blood by Pulse oximetry 2022-08-31 20:26:00 91 /min [facility] Systolic blood pressure 2022-07-13 14:46:00 118 mm[Hg] [facility] Diastolic blood pressure 2022-07-13 14:46:00 68 mm[Hg] [facility] Heart rate 2022-07-13 14:46:00 69 /min Unive [facility] Respiratory rate 2022-07-13 14:46:00 19 /min [facility] Body height 2022-07-13 14:46:00 188 cm [facility] Body weight 2022-07-13 14:46:00 76.975 kg [facility] BMI 2022-07-13 14:46:00 21.79 kg/m2 [facility] Oxygen saturation in Arterial blood by Pulse oximetry 2022-07-13 14:46:00 94 /min [facility] Systolic blood pressure 2022-05-11 13:38:00 148 mm[Hg] [facility] Diastolic blood pressure 2022-05-11 13:38:00 78 mm[Hg] [facility] Heart rate 2022-05-11 13:38:00 60 /min Unive [facility] Respiratory rate 2022-05-11 13:38:00 18 /min [facility] Oxygen saturation in Arterial blood by Pulse oximetry 2022-05-11 13:38:00 99 /min [facility] Body temperature 2022-05-11 13:36:00 36.78 Alee [facility] Body weight 2022-05-11 13:36:00 78.336 kg [facility] BMI 2022-05-11 13:36:00 22.17 kg/m2 [facility] Systolic blood pressure 2022-04-27 13:59:00 175 mm[Hg] [facility] Diastolic blood pressure 2022-04-27 13:59:00 94 mm[Hg] [facility] Heart rate 2022-04-27 13:59:00 69 /min [facility] Oxygen saturation in Arterial blood by Pulse oximetry 2022-04-27 13:59:00 99 /min [facility] Body temperature 2022-04-27 13:57:00 36.39 Alee [facility] Respiratory rate 2022-04-27 13:57:00 19 /min [facility] Body height 2022-04-27 13:57:00 188 cm [facility] Body weight 2022-04-27 13:57:00 77.61 kg [facility] BMI 2022-04-27 13:57:00 21.97 kg/m2 [facility] Procedures Procedure Date / Time Performed Performing Clinician Source CARDIAC DEVICE CHECK - REMOTE - ICD 2024-06-20 21:24:24 Justin Puentes [facility] URINALYSIS 2024-04-18 22:35:00 [facility] XR CHEST 1 VW 2024-04-18 22:20:25 Alistair Taylor [facility] LIPASE 2024-04-18 21:58:00 [facility] MAGNESIUM 2024-04-18 21:58:00 [facility] TROPONIN I 2024-04-18 21:58:00 [facility] COMP. METABOLIC PANEL (15983) 2024-04-18 21:58:00 Alistair Taylor [facility] CBC WITH DIFF 2024-04-18 21:58:00 Brandon [facility] N-TERMINAL PRO-BNP 2024-04-18 21:58:00 Alistair Taylor [facility] TRANSTHORACIC ECHO (TTE) COMPLETE W/ CONTRAST 2023-12-27 19:01:13 Fay Barrios [facility] ASSIGNMENT OF BENEFITS 2023-08-05 15:31:33 Docto r Unassigned, [place] [facility] FLU VACC(),65+YR,0. 5 ML,IM,ADJUVANTED,QUAD([place] UAD) 2023-05-31 19:11:37 Fay Barrios [facility] TROPONIN I 2023-04-27 19:35:00 Fazal Young [facility] COMP. METABOLIC PANEL ([id number]) 2023-04-27 19:35:00 Fazal Young [facility] CBC WITH DIFF 2023-04-27 19:35:00 Fazal Young [facility] N-TERMINAL PRO-BNP 2023-04-27 19:35:00 Mauricio Young [facility] XR CHEST 1 VW 2023-04-27 19:02:15 Fazal Young [facility] CONSENT/REFUSAL FOR DIAGNOSIS AND TREATMENT 2023-04-27 17:58:50 Doctor Unassigned, [place] [facility] BASIC METABOLIC PANEL (NA, K, CL, CO2, GLUCOSE, BUN, CREATININE, CA) 2022-09-15 21:54:00 Prisca Cheung [facility] URINALYSIS 2022-09-15 19:58:00 Prisca Cheung [facility] TROPONIN I 2022-09-15 19:39:00 Prisca Cheung [facility] COMP. METABOLIC PANEL ([id number]) 2022-09-15 19:39:00 Prisca Cheung [facility] CBC WITH DIFF 2022-09-15 19:39:00 Prisca Cheung [facility] CONSENT/REFUSAL FOR DIAGNOSIS AND TREATMENT 2022-09-15 18:43:04 Doctor Unassigned, [place] [facility] BASIC METABOLIC PANEL (NA, K, CL, CO2, GLUCOSE, BUN, CREATININE, CA) 2022-09-14 20:00:00 Joana Monge [facility] N-TERMINAL PRO-BNP 2022-09-14 20:00:00 Joana Monge [facility] FLU VACC(),65+YR,0. 5 ML,IM,ADJUVANTED,QUAD([place] UAD) 2022-05-11 14:21:39 Joana Monge [facility] REFERRAL- REQUEST/RESPONSE 2022-01-22 05:01:00 Doctor Unassigned, [place] [facility] Encounters Start Date/Time End Date/Time Encounter Type Admission Type Attending [facility] Facility Care Department Encounter ID Source 2021-05-26 12:45:[address] [facility] [id number] [facility] 2021-05-25 11:52:[address] [facility] [id number] [facility] 2021-05-25 08:49:[address] [facility] [id number] [facility] 2024-10-03 11:00:00 2024-10-03 11:36:54 Outpatient R FAY BARRIOS [facility] [id number] [facility] 2024-09-21 11:30:00 2024-09-21 23:59:00 Outpatient R GENESIS PUENTES [facility] [id number] [facility] 2024-09-21 11:12:40 2024-09-21 23:59:00 Hospital Encounter Genesis [facility] 1.2.840.114 350.1.13.10 4.2.7.2.686 [id number] [facility] 2024-05-15 00:00:00 2024-09-09 06:46:35 Orders Only Ede Puenteskylee анна [facility] ([place]) 1.2.840.114 350.1.13.10 4.2.7.2.686 [id number] [facility] 2024-08-14 00:00:00 2024-09-09 06:16:48 Orders Only Deloris, Chokylee анна [facility] 1.2.840.114 350.1.13.10 4.2.7.2.686 [id number] [facility] 2024-08-31 00:00:00 2024-08-31 08:13:21 RefFay Wright [facility] 1.2.840.114 350.1.13.10 4.2.7.2.686 [id number] [facility] 2024-08-14 00:00:00 2024-08-14 00:00:00 Outpatient R GENESIS PUENTES [facility] [id number] [facility] 2024-06-06 00:00:00 2024-06-06 10:38:02 RefFay Wright [facility] 1.2840.114 350.1.13.10 4.2.7.2.686 [id number] [facility] 2024-06-03 00:00:00 2024-06-05 08:17:02 Refill Fay Barrios [facility] 1.2.840.114 350.1.13.10 4.2.7.2.686 [id number] [id number] [facility] 2024-05-30 10:30:00 2024-05-30 11:03:25 Outpatient R FAY [facility]RIOS [facility] [id number] [facility] 2024-05-30 10:30:00 2024-05-30 11:03:25 Office Visit [facility] 1.2.840.114 350.1.13.10 4.2.7.2.686 [id number] [facility] 2024-05-15 00:00:00 2024-05-15 23:59:00 Outpatient R GENESIS PUENTES [facility] [id number] [facility] 2024-05-15 00:00:00 2024-05-15 23:59:00 Hospital Encounter Genesis Puentes [facility] 1.2.840.114 350.1.13.10 4.2.7.2.686 [id number] [facility] 2024-05-11 00:00:00 2024-05-12 09:05:50 Telephone Fay Barrios [facility] 1.2.840.114 350.1.13.10 4.2.7.2.686 [id number] [facility] 2024-04-20 12:59:54 2024-04-20 23:59:00 Outpatient R GENESIS PUENTES [facility] [id number] [facility] 2024-04-20 12:59:54 2024-04-20 23:59:00 Hospital Encounter Genesis Puentes [facility] 1.2.840.114 350.1.13.10 4.2.7.2.686 [id number] [facility] 2024-04-18 16:32:00 2024-04-18 19:32:00 Emergency X BRANDON, SHINALISTAIR SINGH [facility] E[facility] [id number] [facility] 2024-04-18 16:32:00 2024-04-18 19:32:00 Emergency Alistair Taylor [facility] 1.2.840.114 350.1.13.10 4.2.7.2.686 [id number] [facility] 2024-04-11 00:00:00 2024-04-12 09:06:52 Telephone Fay Barrios [facility] 1.2.840.114 350.1.13.10 4.2.7.2.686 [id number] [facility] 2024-04-05 09:45:00 2024-04-05 10:00:00 Digital Research Analyst Visit 2, Adc Lab Fay Barrios 2, Adc Lab [facility] 1.2.840.114 350.1.13.10 4.2.7.2.686 [id number] [facility] 2024-04-05 09:45:00 2024-04-05 09:45:00 Outpatient R FAY BARRIOS [facility] [id number] [facility] 2024-04-04 13:00:00 2024-04-04 13:05:21 Outpatient R FAY BARRIOS [facility] [id number] [facility] 2024-04-04 13:00:00 2024-04-04 13:05:21 Office Visit Fay Barrios [facility] 1.2.840.114 350.1.13.10 4.2.7.2.686 [id number] [facility] 2024-03-02 13:00:00 2024-03-02 23:59:00 Outpatient R FAY BARRIOS [facility] [id number] [facility] 2024-03-02 13:00:00 2024-03-02 23:59:00 Hospital Encounter Fay Barrios [facility] 1.2.840.114 350.1.13.10 4.2.7.2.686 [id number] [facility] 2024-02-18 00:00:00 2024-02-18 13:49:11 Telephone Fay Barrios [facility] 1.2.840.114 350.1.13.10 4.2.7.2.686 [id number] [facility] 2024-02-03 11:30:00 2024-02-03 11:30:00 Outpatient R GENESIS PUENTES [facility] [id number] [facility] 2024-01-13 00:00:00 2024-01-13 13:22:24 Telephone Fay Barrios [facility] 1.2.840.114 350.1.13.10 4.2.7.2.686 [id number] [facility] 2024-01-03 00:00:00 2024-01-03 12:52:51 Telephone Fay Barrios [facility] 1.2.840.114 350.1.13.10 4.2.7.2.686 [id number] [facility] 2023-12-27 12:10:44 2023-12-27 23:59:00 Outpatient R FAY [facility]RI[facility] [id number] [facility] 2023-12-27 12:10:44 2023-12-27 23:59:00 Hospital Encounter Fay Barrios [facility] 1.2.840.114 350.1.13.10 4.2.7.2.686 [id number] [facility] 2023-12-03 13:00:00 2023-12-03 13:40:15 Outpatient R FAY [facility]RI[facility] [id number] [facility] 2023-12-03 13:00:00 2023-12-03 13:40:15 Office Visit Fay Barrios [facility] 1.2.840.114 350.1.13.10 4.2.7.2.686 [id number] [facility] 2023-11-03 00:00:00 2023-11-03 23:59:00 Outpatient GENESIS BASURTO [facility] [id number] [facility] 2023-11-03 00:00:00 2023-11-03 23:59:00 Hospital Encounter Genesis Puentes [facility] 1.2840.114 350.1.13.10 4.2.7.2.686 [id number] [facility] 2023-08-11 00:00:00 2023-08-11 00:00:00 Telephone Fay Barrios [facility] 1.2.840.114 350.1.13.10 4.2.7.2.686 [id number] [facility] 2023-08-11 00:00:00 2023-08-11 00:00:00 Patient Secure Msg Doctor Unassigned, [place] [facility] 1.20.114 350.1.13.10 4.2.7.2.686 [id number] [facility] 2023-08-05 09:31:32 2023-08-05 23:59:00 Outpatient R DELORISGENESIS GIVENS [facility] [id number] [facility] 2023-08-05 09:31:32 2023-08-05 23:59:00 Hospital Encounter Genesis Puentes [facility] 1.2.840.114 350.1.13.10 4.2.7.2.686 [id number] [facility] 2023-08-05 11:00:00 2023-08-05 11:15:00 Digital Research Analyst Visit 2, Adc Lab Genesis Puentes [facility] 1.2.840.114 350.1.13.10 4.2.7.2.686 [id number] [facility] 2023-08-05 10:30:00 2023-08-05 10:44:27 Office Visit Fay Barrios [facility] 1.2.840.114 350.1.13.10 4.2.7.2.686 [id number] [facility] 2023-05-31 13:00:00 2023-05-31 13:34:55 Outpatient R FAY BARRIOS [facility] [id number] [facility] 2023-05-31 13:00:00 2023-05-31 13:34:55 Office Visit Fay Barrios [facility] 1.2.840.114 350.1.13.10 4.2.7.2.686 [id number] [facility] 2023-05-19 00:00:00 2023-05-19 00:00:00 Refill Fay Barrios [facility] 1.2.840.114 350.1.13.10 4.2.7.2.686 [id number] [facility] 2023-04-27 13:44:00 2023-04-27 16:33:00 Emergency X FAZAL YOUNG [facility] [id number] [facility] 2023-04-27 13:44:00 2023-04-27 16:33:00 Emergency Fazal Young [facility] 1.2.840.114 350.1.13.10 4.2.7.2.686 [id number] [facility] 2023-01-27 14:00:00 2023-01-27 14:30:00 Office Visit Fay Barrios [facility] 1.2.840.114 350.1.13.10 4.2.7.2.686 [id number] [facility] 2023-01-27 14:00:00 2023-01-27 14:00:00 Outpatient R FAY BARRIOS [facility] [id number] [facility] 2023-01-20 00:00:00 2023-01-20 00:00:00 Telephone Fay Barrios [facility] 1.2.840.114 350.1.13.10 4.2.7.2.686 [id number] [facility] 2023-01-14 09:09:27 2023-01-14 09:15:00 Outpatient R DANYEL THURMAN [facility] [id number] [facility] 2022-12-30 11:20:00 2022-12-30 11:20:00 Office Visit Joana Monge [facility] 1.2.840.114 350.1.13.10 4.2.7.2.686 [id number] [facility] 2022-12-30 11:20:00 2022-12-30 10:27:51 Outpatient R JOANA MONGE [facility] [id number] [facility] 2022-10-29 00:00:00 2022-10-29 00:00:00 Refill Fay Barrios [facility] 1..840.114 350.1.13.10 4.2.7.2.686 [id number] [facility] 2022-10-26 00:00:00 2022-10-26 00:00:00 Patient Secure Msg Doctor Unassigned, [place] [facility] 1..114 350.1.13.10 4.2.7.2.686 [id number] [facility] 2022-10-20 14:00:00 2022-10-20 14:41:36 Outpatient R FAY BARRIOS [facility] [id number] [facility] 2022-10-20 14:00:00 2022-10-20 14:41:36 Office Visit Fay Barrios [facility] 1.840.114 350.1.13.10 4.2.7.2.686 [id number] [facility] 2022-10-12 08:40:00 2022-10-12 08:40:00 Outpatient R JOANA MONGE [facility] [id number] [facility] 2022-09-29 10:30:00 2022-09-29 11:05:59 Outpatient R FAY BARRIOS [facility] [id number] [facility] 2022-09-29 10:30:00 2022-09-29 11:05:59 Nurse Visit Visit, Adc Nurse Fay BarriosRah [facility] 1.2.840.114 350.1.13.10 4.2.7.2.686 [id number] [facility] 2022-09-29 00:00:00 2022-09-29 00:00:00 Telephone Fay Barrios [facility] 1.2.840.114 350.1.13.10 4.2.7.2.686 [id number] [facility] 2022-09-28 09:30:00 2022-09-28 09:30:00 Outpatient R ANAYELI CYDNEY [facility] [id number] [facility] 2022-09-22 11:20:00 2022-09-22 11:42:15 Outpatient R JOANA MONGE [facility] [id number] [facility] 2022-09-22 11:20:00 2022-09-22 11:42:15 Office Visit Joana Monge [facility] 1..840.114 350.1.13.10 4.2.7.2.686 [id number] [facility] 2022-09-15 13:11:00 2022-09-15 16:53:00 Emergency X SAMIRA PRISCA [facility] [id number] [facility] 2022-09-15 13:11:00 2022-09-15 16:53:00 Emergency Prisca Cheung [facility] 1..840.114 350.1.13.10 4.2.7.2.686 [id number] [facility] 2022-09-15 00:00:00 2022-09-15 00:00:00 Telephone Joana Monge [facility] 1.2.840.114 350.1.13.10 4.2.7.2.686 [id number] [facility] 2022-09-15 00:00:00 2022-09-15 00:00:00 Telephone Joana Monge [facility] 1.2.840.114 350.1.13.10 4.2.7.2.686 [id number] [facility] 2022-09-15 00:00:00 2022-09-15 00:00:00 Telephone Joana Monge [facility] 1.2.840.114 350.1.13.10 4.2.7.2.686 [id number] [facility] 2022-09-15 00:00:00 2022-09-15 00:00:00 Telephone Joana Monge [facility] 1.2.840.114 350.1.13.10 4.2.7.2.686 [id number] [facility] 2022-09-14 14:15:00 2022-09-14 14:15:00 Digital Research Analyst Visit 2, Adc Lab Joana Monge [facility] 1.2.840.114 350.1.13.10 4.2.7.2.686 [id number] [facility] 2022-09-14 13:00:00 2022-09-14 13:49:38 Outpatient R JOANA MONGE [facility] [id number] [facility] 2022-09-14 13:00:00 2022-09-14 13:49:38 Office Visit Joana Monge [facility] 1.2.840.114 350.1.13.10 4.2.7.2.686 [id number] [facility] 2022-09-08 10:30:00 2022-09-08 10:45:00 Digital Research Analyst Visit 2, Adc [facility] Joana Monge [facility] 1.2.840.114 350.1.13.10 4.2.7.2.686 [id number] [facility] 2022-09-08 10:30:00 2022-09-08 10:36:56 Outpatient R JOANA MONGE [facility] [id number] [facility] 2022-09-08 00:00:00 2022-09-08 00:00:00 [facility] 1.2840.114 350.1.13.10 4.2.7.2.686 [id number] [facility] 2022-08-31 14:30:00 2022-08-31 14:53:41 Outpatient R ANAYELI [facility] [id number] [facility] 2022-08-31 14:30:00 2022-08-31 14:53:41 Office Visit [facility] 1.2.840.114 350.1.13.10 4.2.7.2.686 [id number] [facility] 2022-08-25 00:00:00 2022-08-25 00:00:00 Telephone Fay Barrios [facility] 1.2.840.114 350.1.13.10 4.2.7.2.686 [id number] [facility] 2022-07-31 00:00:00 2022-07-31 00:00:00 Telephone Joana Monge [facility] 1.2.840.114 350.1.13.10 4.2.7.2.686 [id number] [facility] 2022-07-24 00:00:00 2022-07-24 00:00:00 Telephone Joana Monge [facility] 1.2.840.114 350.1.13.10 4.2.7.2.686 [id number] [facility] 2022-07-17 09:40:00 2022-07-17 09:40:00 Outpatient R DANYEL [facility]MAN [facility] [id number] [facility] 2022-07-16 09:24:27 2022-07-16 09:54:00 Outpatient R DANYEL [facility] [id number] [facility] 2022-07-13 09:45:00 2022-07-13 09:45:00 Digital Research Analyst Visit 2, Adc Lab Joana Monge [facility] 1.2.840.114 350.1.13.10 4.2.7.2.686 [id number] [facility] 2022-07-13 08:40:00 2022-07-13 09:12:53 Outpatient R JOANA MONGE [facility] [id number] [facility] 2022-07-13 08:40:00 2022-07-13 09:12:53 Office Visit Joana Monge [facility] 1.2.840.114 350.1.13.10 4.2.7.2.686 [id number] [facility] 2022-05-14 00:00:00 2022-05-14 00:00:00 Telephone Joana Monge [facility] 1.2.840.114 350.1.13.10 4.2.7.2.686 [id number] [facility] 2022-05-11 10:30:00 2022-05-11 10:45:00 Digital Research Analyst Visit 2, Adc Lab Joana Monge [facility] 1.2.840.114 350.1.13.10 4.2.7.2.686 [id number] [facility] 2022-05-11 08:40:00 2022-05-11 09:30:34 Outpatient R JOANA MONGE [facility] [id number] [facility] 2022-05-11 08:40:00 2022-05-11 09:30:34 Office Visit Joana Monge [facility] 1.2.840.114 350.1.13.10 4.2.7.2.686 [id number] [facility] 2022-05-01 00:00:00 2022-05-01 00:00:00 Telephone Fay Barrios [facility] 1.2.840.114 350.1.13.10 4.2.7.2.686 [id number] [facility] 2022-04-27 09:30:00 2022-04-27 09:30:00 Office Visit Fay Barrios [facility] 1.2.840.114 350.1.13.10 4.2.7.2.686 [id number] [facility] 2022-04-27 09:15:00 2022-04-27 09:30:00 Digital Research Analyst Visit 2, Adc Lab Fay Barrios [facility] 1.2.840.114 350.1.13.10 4.2.7.2.686 [id number] [facility] 2022-04-27 09:30:00 2022-04-27 09:16:55 Outpatient R FAY [facility]RIOS [facility] [id number] [facility] 2022-04-10 09:53:58 2022-04-10 23:59:00 Outpatient R DANYEL [facility]MAN [facility] [id number] [facility] 2022-01-29 00:00:00 2022-01-29 00:00:00 Telephone Fay BarriosDarleenRah [facility] 1.2.840.114 350.1.13.10 4.2.7.2.686 [id number] [facility] 2022-01-23 14:00:00 2022-01-23 14:15:00 Digital Research Analyst Visit 2, Adc Lab BarriosJesus Albertonaty RajniRah [facility] 1.2.840.114 350.1.13.10 4.2.7.2.686 [id number] [facility] 2022-01-23 14:00:00 2022-01-23 14:00:00 Outpatient R FAY [facility]OS [facility] [id number] [facility] 2022-01-23 13:00:00 2022-01-23 13:12:33 Outpatient R FAY [facility] [id number] [facility] 2022-01-23 13:00:00 2022-01-23 13:12:33 Office Visit Fay BarriosDarleenRah [facility] 1.2.840.114 350.1.13.10 4.2.7.2.686 [id number] [facility] 2022-01-23 13:00:00 2022-01-23 13:12:33 Outpatient R FAY [facility] [id number] [facility] 2022-01-22 00:00:00 2022-01-22 00:00:00 Orders Only Doctor Unassigned, [place] [facility] 1.2.840.114 350.1.13.10 4.2.7.2.686 [id number] [facility] 2022-01-02 09:25:12 2022-01-02 23:59:00 Outpatient R DANYEL [facility]MAN [facility] [id number] [facility] 2021-12-26 09:34:10 2021-12-26 23:59:00 Outpatient R FAY [facility] [id number] [facility] 2021-12-26 10:00:00 2021-12-26 10:00:00 Outpatient R FAY [facility] [id number] [facility] 2021-12-26 09:15:00 2021-12-26 09:30:00 Digital Research Analyst Visit 2, Adc Lab Fay Barrios [facility] 1.2.840.114 350.1.13.10 4.2.7.2.686 [id number] [facility] 2021-12-10 00:00:00 2021-12-10 00:00:00 Telephone Fay Barrios [facility] 1.2.840.114 350.1.13.10 4.2.7.2.686 [id number] [id number] [facility] 2021-12-02 10:00:00 2021-12-02 11:44:27 Outpatient R JESUS ALBERTO [facility]Y [facility] [id number] [facility] 2021-12-02 10:00:00 2021-12-02 11:44:27 Office Visit Fay Barrios [facility] 1.2.840.114 350.1.13.10 4.2.7.2.686 [id number] [id number] [facility] 2021-11-13 00:00:00 2021-11-13 00:00:00 Telephone Fay Barrios [facility] 1.2.840.114 350.1.13.10 4.2.7.2.686 [id number] [id number] [facility] 2021-11-06 13:11:00 2021-11-06 15:59:00 Emergency X ANNA GOODMAN [facility] [id number] [facility] 2021-11-06 13:11:00 2021-11-06 15:59:00 Emergency Stacy GoodmanLoreto Nuñez [facility] 1.2.840.114 350.1.13.10 4.2.7.2.686 [id number] [id number] [facility] 2021-07-22 10:15:00 2021-07-22 10:30:00 Digital Research Analyst Visit Pob, Adc Lab Main Fay Barrios [facility] 1.2.840.114 350.1.13.10 4.2.7.2.686 [id number] [facility] 2021-07-22 10:15:00 2021-07-22 10:15:[address] [facility] [id number] [facility] 2021-07-22 00:00:00 2021-07-22 00:00:00 Orders Only Doctor Unassigned, [place] [facility] 1.2.840.114 350.1.13.10 4.2.7.2.686 [id number] [id number] [facility] 2021-07-02 00:00:00 2021-07-02 00:00:00 Telephone Fay Barrios [facility] 1.2.840.114 350.1.13.10 4.2.7.2.686 [id number] [facility] 2021-06-30 14:00:00 2021-06-30 14:00:[address] [facility] [id number] [facility] 2021-06-30 14:00:00 2021-06-30 14:00:[address] [facility] [id number] [facility] 2021-06-30 12:08:53 2021-06-30 12:23:53 Digital Research Analyst Visit Pob, Adc Lab Main Fay Barrios [facility] 1.284.114 350.1.13.10 4.2.7.2.686 [id number] [facility] 2021-06-30 11:09:32 2021-06-30 11:49:17 Office Visit Fay Barrios [facility] 1.2.114 350.1.13.10 4.2.7.2.686 [id number] 059 [id number] [facility] 2021-06-30 00:00:00 2021-06-30 00:00:00 Orders Only Doctor Unassigned, [place] [facility] 1.2.114 350.1.13.10 4.2.7.2.686 [id number] [facility] 2021-06-10 10:14:45 2021-06-10 23:59:00 Hospital Encounter Danyel Thurman [facility] 1.2.114 350.1.13.10 4.2.7.2.686 [id number] [facility] 2021-06-10 11:00:00 2021-06-10 11:00:[address] [facility] [id number] [facility] 2021-06-10 11:00:00 2021-06-10 10:50:[address] [facility] [id number] [facility] 2021-06-10 10:50:21 2021-06-10 10:50:28 Imm/Inj Visit Nurse, Domenic Pouyen Immunizatio Liban Castillo [facility] 1.284.114 350.1.13.10 4.2.7.2.686 [id number] [facility] 2021-05-01 09:30:00 2021-05-01 09:30:00 Outpatient R NITZA DE [facility] [id number] [facility] 2021-04-28 13:00:00 2021-04-28 13:00:00 Outpatient R NITZA DE [facility] [id number] [facility] 2021-03-25 09:30:00 2021-03-25 09:30:00 Outpatient R RUPESH KLINE [facility] [id number] [facility] 2021-03-18 10:45:03 2021-03-18 23:59:00 Hospital Encounter Cuca Danyel [facility] 1..840.114 350.1.13.10 4.2.7.2.686 [id number] [facility] 2021-03-18 11:00:00 2021-03-18 11:00:00 Outpatient R DANYEL [facility]MAN [facility] [id number] [facility] 2021-03-06 00:00:00 2021-03-06 00:00:00 Patient Secure Msg Doctor Unassigned, [place] [facility] 1..840.114 350.1.13.10 4.2.7.2.686 [id number] [facility] 2021-03-04 11:00:00 2021-03-04 11:00:00 Outpatient R DANYEL [facility]MAN [facility] [id number] [facility] 2021-02-25 12:05:00 2021-02-25 14:51:00 Emergency Alma Moctezuma [facility] 1.840.114 350.1.13.10 4.2.7.2.686 [id number] [facility] 2021-02-07 13:58:00 2021-02-08 16:35:00 Hospital Encounter Danyel Thurman Ahmed Riyadh [facility] 1.0.114 350.1.13.10 4.2.7.2.686 [id number] [facility] 2021-02-07 11:00:00 2021-02-07 11:00:00 Outpatient R DANYEL [facility] [id number] [facility] 2021-02-05 00:00:00 2021-02-05 00:00:00 [facility] 1.0.114 350.1.13.10 4.2.7.2.686 [id number] [facility] 2021-01-14 12:44:58 2021-01-14 13:35:26 Office Visit Cuca [facility] 1..114 350.1.13.10 4.2.7.2.686 [id number] [facility] 2021-01-14 13:00:00 2021-01-14 13:00:00 Outpatient R [facility] [id number] [facility] 2021-01-14 00:00:00 2021-01-14 00:00:00 Orders Only Doctor Unassigned, [place] [facility] 1..114 350.1.13.10 4.2.7.2.686 [id number] [facility] 2021-01-07 00:00:00 2021-01-07 00:00:00 Telephone Laurel Shane [facility] 1..114 350.1.13.10 4.2.7.2.686 [id number] [facility] 2021-01-06 00:00:00 2021-01-06 00:00:00 Refill Lulu FryietaLaurel [facility] 1.2.840.114 350.1.13.10 4.2.7.2.686 [id number] [facility] 2020-12-25 15:00:00 2020-12-25 15:00:00 Outpatient R NITZA DE [facility] [id number] [facility] 2020-12-19 14:00:00 2020-12-19 14:00:00 Outpatient R JENNIFERGabriella EARLLAUREL [facility] [id number] [facility] 2020-12-19 13:39:36 2020-12-19 13:54:36 Digital Research Analyst Visit 2, Adc Lab Laurel Shane [facility] Building 1.2840.114 350.1.13.10 4.2.7.2.686 [id number] [facility] 2020-12-19 00:00:00 2020-12-19 00:00:00 Telephone JenniferGabriella EarlLaurel [facility] 1.2.840.114 350.1.13.10 4.2.7.2.686 [id number] [facility] 2020-12-17 00:00:00 2020-12-17 00:00:00 Telephone Nitza De Jesus [facility] 1.2.840.114 350.1.13.10 4.2.7.2.686 [id number] [facility] 2020-12-13 00:00:00 2020-12-13 00:00:00 Telephone JenniferGabriella EarlLaurel [facility] 1.2840.114 350.1.13.10 4.2.7.2.686 [id number] [facility] 2020-12-12 14:30:00 2020-12-12 14:30:00 Outpatient R LULU [facility]ENDALLL[facility]L [facility] [id number] [facility] 2020-12-12 14:14:12 2020-12-12 14:29:12 Digital Research Analyst Visit 2, Adc Lab Laurel Shane [facility] Building 1.2.840.114 350.1.13.10 4.2.7.2.686 [id number] [facility] 2020-12-12 00:00:00 2020-12-12 00:00:00 Orders Only Doctor Unassigned, [place] [facility] 1.20.114 350.1.13.10 4.2.7.2.686 [id number] [facility] 2020-12-06 00:00:00 2020-12-06 00:00:00 Telephone Selmabriancirilo EarlLaurel arellano [facility] Office Building 1.2840.114 350.1.13.10 4.2.7.2.686 [id number] [facility] 2020-12-03 13:05:45 2020-12-03 13:20:45 Digital Research Analyst Visit 2, [facility] Chapis Ellis [facility] Building 1.2.840.114 350.1.13.10 4.2.7.2.686 [id number] [facility] 2020-12-03 13:00:00 2020-12-03 13:00:[address] [facility] [id number] [facility] 2020-12-03 00:00:00 2020-12-03 00:00:00 Refill Laurel Shane [facility] Medical Office Building 1.2840.114 350.1.13.10 4.2.7.2.686 [id number] [facility] 2020-11-28 00:00:00 2020-11-28 00:00:00 Telephone Laurel Shane [facility] Office Building 1.2.840.114 350.1.13.10 4.2.7.2.686 [id number] [facility] 2020-11-27 10:43:40 2020-11-27 10:58:40 Digital Research Analyst Visit Pob, Adc Lab Main Chapis Ellis [facility] Building 1..840.114 350.1.13.10 4.2.7.2.686 [id number] [facility] 2020-11-27 10:45:00 2020-11-27 10:45:[address] [facility] [id number] [facility] 2020-11-26 14:29:50 2020-11-26 14:44:50 Digital Research Analyst Visit 2, Adc Lab Laurel Shane [facility] Building 1.2.840.114 350.1.13.10 4.2.7.2.686 [id number] [facility] 2020-11-26 13:00:00 2020-11-26 13:00:[address] [facility] [id number] [facility] 2020-11-18 09:55:03 2020-11-18 10:10:03 Digital Research Analyst Visit 2, Adc Lab Laurel Shane [facility] Building 1.2.840.114 350.1.13.10 4.2.7.2.686 [id number] [facility] 2020-11-18 10:00:00 2020-11-18 10:00:[address] [facility] [id number] [facility] 2020-11-18 00:00:00 2020-11-18 00:00:00 Telephone Laurel Shane [facility] 1.2840.114 350.1.13.10 4.2.7.2.686 [id number] [facility] 2020-11-15 00:00:00 2020-11-15 00:00:00 Patient Secure Msg Doctor Unassigned, [place] [facility] 1.2840.114 350.1.13.10 4.2.7.2.686 [id number] [facility] 2020-11-11 00:00:00 2020-11-11 00:00:00 Telephone Laurel Shane [facility] Building 1..840.114 350.1.13.10 4.2.7.2.686 [id number] [facility] 2020-11-11 00:00:00 2020-11-11 00:00:00 Telephone Gene Ramoscharis [facility] Building 1.2.84.114 350.1.13.10 4.2.7.2.686 [id number] [facility] 2020-11-07 13:20:00 2020-11-07 13:20:[address] [facility] [id number] [facility] 2020-11-07 00:00:00 2020-11-07 00:00:00 Patient Secure Msg Doctor Unassigned, [place] [facility] 1.2.840.114 350.1.13.10 4.2.7.2.686 [id number] [facility] 2020-11-06 12:59:57 2020-11-06 13:29:57 Office Visit Laurel Shane [facility] 1.2.840.114 350.1.13.10 4.2.7.2.686 [id number] [facility] 2020-11-06 13:00:00 2020-11-06 13:00:00 Outpatient Allen LAUREL SHANE [facility] [id number] [facility] 2020-11-06 00:00:00 2020-11-06 00:00:00 Telephone Laurel Shane [facility] 1.2.840.114 350.1.13.10 4.2.7.2.686 [id number] [facility] 2020-11-01 12:56:00 2020-11-01 18:41:00 Emergency Rosalino Boggs [facility] 1.2.840.114 350.1.13.10 4.2.7.2.686 [id number] [facility] 2020-11-01 00:00:00 2020-11-01 00:00:00 Telephone Laurel Shane [facility] 1.2.840.114 350.1.13.10 4.2.7.2.686 [id number] [facility] 2020-10-31 13:00:46 2020-10-31 13:15:46 Digital Research Analyst Visit 2, Adc Lab Laurel Shane [facility] Building 1.2.840.114 350.1.13.10 4.2.7.2.686 [id number] [facility] 2020-10-31 13:00:00 2020-10-31 13:00:00 Outpatient Allen LA[address]L [facility]ANE [facility] [id number] [facility] 2020-10-31 00:00:00 2020-10-31 00:00:00 Orders Only Doctor Unassigned, [place] [facility] 1.2.840.114 350.1.13.10 4.2.7.2.686 [id number] [facility] 2020-10-28 00:00:00 2020-10-28 00:00:00 Telephone Laurel Shane [facility] Office Building 1.2.840.114 350.1.13.10 4.2.7.2.686 [id number] [facility] 2020-10-25 14:49:03 2020-10-25 15:04:03 Digital Research Analyst Visit 2, Adc Lab Laurel Shane [facility] Building 1.2.840.114 350.1.13.10 4.2.7.2.686 [id number] [facility] 2020-10-25 13:57:05 2020-10-25 14:37:42 Office Visit Fay Barrios [facility] 1.2.840.114 350.1.13.10 4.2.7.2.686 [id number] [facility] 2020-10-25 14:00:00 2020-10-25 14:00:00 Outpatient R FAY [facility]RIOS [facility] [id number] [facility] 2020-10-18 13:51:00 2020-10-18 17:43:00 Emergency Anna Goodman [facility] 1.2.840.114 350.1.13.10 4.2.7.2.686 [id number] [facility] 2020-10-17 13:25:24 2020-10-17 13:40:24 Digital Research Analyst Visit 1, Adc Lab Laurel Shane [facility] 1.2.840.114 350.1.13.10 4.2.7.2.686 [id number] [facility] 2020-10-17 13:30:00 2020-10-17 13:30:[address] [facility] [id number] [facility] 2020-10-17 00:00:00 2020-10-17 00:00:00 Telephone Laurel Shane [facility] 1.2840.114 350.1.13.10 4.2.7.2.686 [id number] [facility] 2020-10-17 00:00:00 2020-10-17 00:00:00 Orders Only Doctor Unassigned, [place] [facility] 1.2.840.114 350.1.13.10 4.2.7.2.686 [id number] [facility] 2020-10-14 00:00:00 2020-10-14 00:00:00 Telephone Laurel Shane [facility] Building 1.2840.114 350.1.13.10 4.2.7.2.686 [id number] [facility] 2020-10-14 00:00:00 2020-10-14 00:00:00 Patient Secure Mauricio Velasco [facility] 1.2840.114 350.1.13.10 4.2.7.2.686 [id number] [facility] 2020-10-09 14:30:00 2020-10-09 14:30:00 Outpatient R LA[address]L [address] [facility] [id number] [facility] 2020-10-09 13:18:03 2020-10-09 13:48:03 Office Visit Laurel Shane [facility] 1.2840.114 350.1.13.10 4.2.7.2.686 [id number] [facility] 2020-10-08 11:48:04 2020-10-08 12:44:16 Office Visit Ann Marie Ward [facility] Building 1..840.114 350.1.13.10 4.2.7.2.686 [id number] [facility] 2020-10-08 12:30:00 2020-10-08 12:30:00 Outpatient R [address]GE WAR[address] [facility] [id number] [facility] 2020-10-08 00:00:00 2020-10-08 00:00:00 Telephone Ann Marie Ward [facility] Building 1..840.114 350.1.13.10 4.2.7.2.686 [id number] [facility] 2020-10-01 15:00:00 2020-10-01 15:00:00 Outpatient R ANN MARIE WARD [facility] [id number] [facility] 2020-09-30 10:40:00 2020-09-30 10:40:[address] [facility] [id number] [facility] 2020-09-18 00:00:00 2020-09-18 00:00:00 Patient Secure Msg Doctor Unassigned, [place] [facility] 1.840.114 350.1.13.10 4.2.7.2.686 [id number] [facility] 2020-09-17 08:30:00 2020-09-17 08:30:00 Outpatient R FAY [facility]OS [facility] [id number] [facility] 2020-09-17 00:00:00 2020-09-17 00:00:00 Patient Secure Msg Gene Ramos [facility] Building 1..840.114 350.1.13.10 4.2.7.2.686 [id number] [facility] 2020-09-02 15:23:16 2020-09-02 16:24:33 [facility] selina Briceno 1.2.840.114 350.1.13.10 4.2.7.2.686 [id number] [facility] 2020-09-02 15:30:00 2020-09-02 15:30:00 [address] R [address] [facility] [id number] [facility] 2020-08-27 00:00:00 2020-08-27 00:00:00 Transition of Care Per Lisa Olea 1.2840.114 350.1.13.10 4.2.7.2.686 [id number] [facility] 2020-08-26 00:00:00 2020-08-26 00:00:00 RefChapis Bahena [facility] 1.2.840.114 350.1.13.10 4.2.7.2.686 [id number] [facility] 2020-08-14 15:10:00 2020-08-25 18:40:00 Inpatient X [facility]U [facility] [id number] [facility] 2020-08-14 15:10:00 2020-08-25 18:40:00 Hospital Encounter [facility] bhanu TreyLulú Ramon, [facility] 1.2840.114 350.1.13.10 4.2.7.2.686 [id number] [facility] 2019-08-03 11:32:14 2019-08-03 23:59:00 Outpatient R WELLS, MAURICIO [facility] [id number] [facility] Results Test Description Test Time Test [...] or pneumothorax. No acute osseous abnormality isidentified. [id number]* Test Item Value Reference Range Interpretation Comme nts TROPONIN I (test code = 4720176254) <=0.034 JG (test code = JG) Reference [...] of biotin. Lab Interpretation (test code = 68146-4) [id number] 20:24:50* Test Item Value Reference Range Interpretation Comme nts NT-proBNP (test code = 80950-7) 3180 pg/mL <=125 H JG (test code = JG) Positive: Heart Failure Likely Lab Interpretation (test code = 87828-4) [facility] (99686)2023-04-27 20:16:09* Test Item Value Reference Range Interpretation Comme nts NA (test code = 1818507468) 129 mmol/L 135-145 L K (test code = 7102179988) 4.5 mmol/L 3.5-5.0 CL (test code = 1672047909) 95 mmol/L 98-108 L CO2 TOTAL (test code = 7417129181) 23 mmol/L 23-31 AGAP (test code = 2605973221) 11 2-16 BUN (test code = 2364411169) 36 mg/dL 7-23 H GLUCOSE (test code = 2676690735) 207 mg/dL 70-110 H CREATININE (test code = 7084577252) 1.91 mg/dL 0.60-1.25 H TOTAL BILI (test code = 3470467936) 0.8 mg/dL 0.1-1.1 CALCIUM (test code = 3901388128) 9.2 mg/dL 8.6-10.6 T PROTEIN (test code = 0559830573) 7.4 g/dL 6.3-8.2 ALBUMIN (test code = 6330127302) 4.2 g/dL 3.5-5.0 ALK PHOS (test code = 9709212262) 83 U/L 34-122 ALTv (test code = 1742-6) 37 U/L 5-50 AST(SGOT) (test code = 8497348859) 85 U/L 13-40 H eGFR (test code = 0693158678) 33.4 mL/min/1.73m2 JG (test code = JG) [...] imaging tests). Lab Interpretation (test code = 12026-1) Abnormal [facility] WITH [id number] 20:02:21* Test Item Value Reference Range Interpretation Comme nts WBC (test code = 6690-2) 5.78 See_Comment [Automated [employer]] The system which generated this result transmitted reference range: 4.20 - 10.70 10*3/?L. The reference range was not used to interpret this result as normal/abnormal. RBC (test code = 789-8) 4.33 See_Comment [Automated [employer]] The system which generated this result transmitted [...] g/dL 31.2-35.0 H RDW-SD (test code = 86551-8) 45.2 fL 38.5-51.6 RDW-CV (test code = 788-0) 12.6 % 12.1-15.4 PLT (test code = 777-3) 135 See_Comment L [Automated [employer]] The system which generated this result transmitted reference range: 150 - 328 10*3/?L. The reference range was not used to interpret this result as normal/abnormal. MPV (test code = 48421-4) 9.1 fL 9.8-13.0 L NRBC/100 WBC (test code = 3218959577) 0.0 See_Comment [Automated me ssage] The system which generated this result transmitted reference range: 0.0 - 10.0 /100 WBCs. The reference range was not used to interpret this result as normal/abnormal. NRBC x10^3 (test code = 7559236040) See_Comment [Automated messa ge] The system which generated this result transmitted reference range: 10*3/?L. The reference range was not used to interpret this result as normal/abnormal. GRAN MAT (NEUT) % (test code = 770-8) 46.8 % IMM GRAN % (test code = 9322894790) 0.70 % LYMPH % (test code = 736-9) 36.7 % MONO % (test code = 5905-5) 13.5 % EOS % (test code = 713-8) 1.4 % BASO % (test code = 706-2) 0.9 % GRAN MAT x10^3(ANC) (test code = 8131699078) 2.71 10*3/uL 1.99-6.95 IMM GRAN x10^3 (test code = 2513511621) 0.04 10*3/uL 0.00-0.06 LYMPH x10^3 (test code = 731-0) 2.12 10*3/uL 1.09-3.23 MONO x10^3 (test code = 742-7) 0.78 10*3/uL 0.36-1.02 EOS x10^3 (test code = 711-2) 0.08 10*3/uL 0.06-0.53 BASO x10^3 (test code = 704-7) 0.05 10*3/uL 0.01-0.09 Lab Interpretation (test code = 30391-0) Abnormal [facility] METABOLIC PANEL (NA, K, CL, CO2, GLUCOSE, BUN, CREATININE, CA)2022-09-15 22:29:16* Test Item Value Reference Range Interpretation Comme nts NA (test code = 7490540307) 135 mmol/L 135-145 K (test code = 4220833581) 5.0 mmol/L 3.5-5.0 CL (test code = 0979159671) 104 mmol/L 98-108 CO2 TOTAL (test code = 0127971749) 22 mmol/L 23-31 L AGAP (test code = 4424015565) 9 2-16 BUN (test code = 0044081603) 66 mg/dL 7-23 H GLUCOSE (test code = 9692487392) 204 mg/dL 70-110 H CREATININE (test code = 2840405144) 2.46 mg/dL 0.60-1.25 H CALCIUM (test code = 7095719077) 7.7 mg/dL 8.6-10.6 L eGFR (test code = 4441979457) 25.0 mL/min/1.73m2 JG (test code = JG) [...] imaging tests). Lab Interpretation (test code = 44570-3) [id number] Test Item Value Reference Range Interpretation Comme nts TROPONIN I (test code = 3595046229) 0.002 ng/mL <=0.034 JG (test code = [...] of biotin. Lab Interpretation (test code = 59231-4) Normal [facility]. METABOLIC PANEL (73488)2022-09-15 20:30:48* Test Item Value Reference Range Interpretation Comme nts NA (test code = 9867182503) 134 mmol/L 135-145 L K (test code = 5423942640) 4.5 mmol/L 3.5-5.0 CL (test code = 7854967032) 99 mmol/L 98-108 CO2 TOTAL (test code = 5194524408) 24 mmol/L 23-31 AGAP (test code = 6951974984) 11 2-16 BUN (test code = 2424126568) 66 mg/dL 7-23 H GLUCOSE (test code = 1638274306) 201 mg/dL 70-110 H CREATININE (test code = 7592721767) 2.56 mg/dL 0.60-1.25 H TOTAL BILI (test code = 2766756296) 0.7 mg/dL 0.1-1.1 CALCIUM (test code = 3672319851) 8.4 mg/dL 8.6-10.6 L T PROTEIN (test code = 6678243861) 6.8 g/dL 6.3-8.2 ALBUMIN (test code = 7912904683) 4.1 g/dL 3.5-5.0 ALK PHOS (test code = 0414353461) 87 U/L 34-122 ALTv (test code = 1742-6) 26 U/L 5-50 AST(SGOT) (test code = 6162482649) 35 U/L 13-40 eGFR (test code = 5025039595) 23.9 mL/min/1.73m2 JG (test code = JG) [...] imaging tests). Lab Interpretation (test code = 42924-8) Abnormal [facility] WITH [id number] 20:04:41* Test Item Value Reference Range Interpretation Comme nts WBC (test code = 6690-2) 8.28 See_Comment [Automated [employer]] The system which generated this result transmitted reference range: 4.20 - 10.70 10*3/?L. The reference range was not used to interpret this result as normal/abnormal. RBC (test code = 789-8) 3.82 See_Comment L [Automated [employer]] The system which generated this result transmitted [...] g/dL 31.2-35.0 H RDW-SD (test code = 88593-7) 44.9 fL 38.5-51.6 RDW-CV (test code = 788-0) 12.6 % 12.1-15.4 PLT (test code = 777-3) 163 See_Comment [Automated [employer]] The system which generated this result transmitted reference range: 150 - 328 10*3/?L. The reference range was not used to interpret this result as normal/abnormal. MPV (test code = 03899-5) 9.1 fL 9.8-13.0 L NRBC/100 WBC (test code = 1844893630) 0.0 See_Comment [Automated [employer] ssage] The system which generated this result transmitted reference range: 0.0 - 10.0 /100 WBCs. The reference range was not used to interpret this result as normal/abnormal. NRBC x10^3 (test code = 2887816330) See_Comment [Automated [employer]] The system which generated this result transmitted reference range: 10*3/?L. The reference range was not used to interpret this result as normal/abnormal. GRAN MAT (NEUT) % (test code = 770-8) 60.1 % IMM GRAN % (test code = 3893879064) 0.60 % LYMPH % (test code = 736-9) 29.5 % MONO % (test code = 5905-5) 7.2 % EOS % (test code = 713-8) 2.2 % BASO % (test code = 706-2) 0.4 % GRAN MAT x10^3(ANC) (test code = 2495565377) 4.98 10*3/uL 1.99-6.95 IMM GRAN x10^3 (test code = 8499294164) 0.05 10*3/uL 0.00-0.06 LYMPH x10^3 (test code = 731-0) 2.44 10*3/uL 1.09-3.23 MONO x10^3 (test code = 742-7) 0.60 10*3/uL 0.36-1.02 EOS x10^3 (test code = 711-2) 0.18 10*3/uL 0.06-0.53 BASO x10^3 (test code = 704-7) 0.03 10*3/uL 0.01-0.09 Lab Interpretation (test code = 72328-1) Abnormal [facility] Notes Date/Time Note Provider Source 2024-08-31 08:12:04 Received refill request for: Requested Prescriptions Pending Prescriptions Disp Refills simvastatin 40 mg tablet [Pharmacy Med Name: SIMVASTATIN 40 MG TABLET] 90 tablet 1 Sig: TAKE 1 TABLET BY MOUTH EVERYDAY AT BEDTIME RAMONA: 05/30/24 (Barrios) NOV : 10/03/24 (Barrios) EK04/18/24 Labs: 04/05/24 (Lipid Panel) 04/18/24 (CMP, CBC) Currently on simvastatin 40 mg daily Refill approved in compliance with cardiology guidelines. Pharmacy: [facility]/pharmacy #[id number] AT [address] [address] [place] [facility] 2024-06-06 10:37:06 Images from the original note were not included. Requested Prescriptions Pending Prescriptions Disp Refills METOPROLOL SUCCINATE XL 25 mg 24 hr tablet [Pharmacy Med Name: METOPROLOL SUCC ER 25 MG TAB] 180 tablet 1 Sig: TAKE 1 TABLET BY MOUTH EVERY MORNING AND EVENING. Patient compliant per [facility] Cardiology Refill Guidelines. Rx sent to: [facility]/pharmacy #[id number] AT [facility] [address] [place] Name from pharmacy: METOPROLOL SUCC ER 25 MG TAB Will file in chart as: METOPROLOL SUCCINATE XL 25 mg 24 hr tablet Sig: TAKE 1 TABLET BY MOUTH EVERY MORNING AND EVENING. Disp: 180 tablet Refills: 1 Start: 06/06/2024 Class: eRX For: Essential hypertension Last ordered: 3 months ago (03/08/2024) by Fay Barrios MD Last refill: 06/03/2024 Rx #: [id number] Cardiovascular: Beta Blockers Wdbxlv7506/06/2024 09:59 AM Protocol Details Valid encounter within last 12 months Heart rate within normal limits and completed in the last 12 months To be filled at: [facility]/pharmacy #[address] [place] [address] AT [facility] [address] SAND[place] Nona Coronado MA [facility] 2024-06-05 08:16:14 Images from the original note were not included. Requested Prescriptions Pending Prescriptions Disp Refills SIMVASTATIN 40 mg tablet [Pharmacy Med Name: SIMVASTATIN 40 MG TABLET] 90 tablet 3 Sig: TAKE 1 TABLET BY MOUTH EVERYDAY AT BEDTIME Patient compliant per [facility] Cardiology Refill Guidelines. Rx sent to: [facility]/pharmacy #[address] [place] [address] AT [facility] [address] [place] Name from pharmacy: SIMVASTATIN 40 MG TABLET Will file in chart as: SIMVASTATIN 40 mg tablet Sig: TAKE 1 TABLET BY MOUTH EVERYDAY AT BEDTIME Disp: 90 tablet Refills: 3 Start: 06/03/2024 Class: eRX For: Dyslipidemia Last ordered: 1 year ago (05/31/2023) by Fay Barrios MD Last refill: 03/08/2024 Rx #: [id number] Cardiovascular: Antilipid - HMg-CoA Reductase Inhibitors - simvastatin Idlgyl5506/03/2024 10:06 AM Protocol Details Valid encounter within last 12 months Total Cholesterol within 360 days LDL within 360 days HDL within 360 days Triglycerides within 360 days AST in normal range and within 360 days ALT in normal range and within 360 days To be filled at: [facility]/pharmacy #[id number] - [place], [place] - [address] AT [facility] [address] [place] SANDER Nona Coronado MA [facility] 2024-05-12 09:05:20 Notified patient's daughter that we got her message. Advised to call back after discharge if he needs a follow up with Dr. Barrios. [facility] 2024-05-11 19:15:24 Yael Ledesma is a 89 year old male Daughter of the pt Liseth is calling in stating that the pt is IP at [facility] in [place]. He was a direct admit from the ED. Liseth stated that the pt is being admitted for heart trouble, and his Bs was 40 Please advise Inna Reynolds [facility] 2024-04-18 19:31:27 Pt given printed and verbal [...] in no apparent distress, Jaz Butler RN [facility] 2024-04-18 16:29:57 Patient was sent over by urgent care for complaint of hiccups x 2 days. Pt says they will go away for about 15 minutes and come back. Also reports dyspnea on exertion and increased fatigue over past 2 months. Miguel Angel Bee RN [facility] 2024-04-12 09:06:19 Attempted to contact patient with results/recommendations. LVM for patient to return call to [phone]. Patient has seen results on My Chart, [...] patient Michael Ledesma on 04/09/2024 5:08 PM [facility] 2024-04-11 11:11:58 Images from the original note were not included. Attempted to contact patient with results/recommendations. LVM for patient to return call to [phone]. Fay Barrios MD P Cardiology Nurse CBC within acceptable limits NT BNP stable at 1840 similar to 8 months ago. Lipid panel within acceptable limits CMP within acceptable limits. Creatinine stable at 1.8 similar to 8 months ago. Continue the current cardiac medications without any further changes. Follow-up as planned [facility] 2024-04-05 09:45:00 Images from the original note were not included. Venipuncture collection performed by clean technique on the left anticubitus. Total of 1 attempts were made. Slight pressure and a bandage/dressing were applied to the site(s). The patient experienced no complications. The following specimens were processed according to instructions and sent to [facility] laboratories per lab order on 04/05/2024 : LT BLUE SST 1 RED LAV 1 PPT DK GREEN (LiHep) DK GREEN (SodH) SUAZO DK BLUE (K2) DK BLUE (S) ACD Blood Culture NIPT/NTD [facility] 2024-02-18 13:46:52 Patient has been scheduled for CLC due to ADC having nothing sooner. Patient daughter in law Liseth said she understood and wanted CLC location Jocy Painter [facility] 2024-02-18 13:41:41 Yael Ledesma is a 89 year old male Pts daughter in law Barrera calling to reschedule device check. Liseth - [phone] Giovanna Velazquez [facility] 2024-01-13 13:21:03 Images from the original [...] current cardiac medications without any further changes. [facility] 2024-01-03 12:52:[address] Barrios has not reviewed the results yet. Will contact patient/daughter once reviewed by provider to go over results and recommendations. T [facility] 2024-01-03 10:44:13 Copied from [facility] #[id number]. Topic: Clinical - Results >> Jan 03, 2024 10:43 AM Patient Research Anthropologist wrote: Yael Ledesma is a 88 year old male Daughter was calling for someone to go over the results of the echo Please advise Nat Rico [facility] 2023-12-03 13:00:00 Addended by: FAY BARRIOS on: 02/23/2024 10:29 AM Modules accepted: Orders [facility] 2023-08-13 16:06:34 3rd Attempt to call patient for results will send the results by mail and also send a message on [employer] S[facility] Kelin Boss MA [facility] 2023-08-12 11:29:35 Images from the original [...] LVM for patient to return call to [phone]. SANDER Nona Coronado MA [facility] 2023-08-11 08:49:57 Images from the original [...] without any further changes. Follow-up as planned. [facility] 2023-08-05 11:00:00 Images from the original note were not included. Venipuncture collection performed by clean technique on the left anticubitus. Total of 1 attempts were made. Slight pressure and a bandage/dressing were applied to the site(s). The patient experienced no complications. The following specimens were processed according to instructions and sent to [facility] laboratories per lab order on 08/05/2023 : LT BLUE SST 1 RED LAV PPT DK GREEN (LiHep) DK GREEN (SodH) SUAZO DK BLUE (K2) DK BLUE (S) ACD Blood Culture NIPT/NTD [facility]
[2024-12-14 14:20] LABS: Absolute Eosinophils 0.1 K/uL (0-0.5); Absolute Lymphocytes (CBC) 1.7 K/uL (0.7-4.9); Absolute Monocytes 0.8 K/uL (0.1-1.3); Absolute Neutrophil 5.4 K/uL (1.8-8.0); Basophils % 0.6 % (0-1.3); Eosinophils % 1.8 % (0-4.4); Hematocrit 37.4 % (39.6-49.0); Hemoglobin 13.1 g/dL (13.6-17.9); Lymphocytes % 21.1 % (15.3-44.8); MCH 33.9 pg (27.0-35.0); MCHC 35.1 g/dL (32.0-36.0); MCV 96.5 fL (80-100); MPV 6.7 fL (7.6-11.3); Monocytes % 9.7 % (3.3-12.3); Neutrophils % 66.8 % (41.7-73.7); Nucleated Red Blood Cells % 0.1 % (0-0); Platelets 181 thou/uL (152-406); RBC Red Blood Cell Count 3.87 M/uL (4.33-5.43); Red Cell Distribution Width 13.8 % (12.1-15.2)
[2024-12-14 14:26] LABS: PT Prothrombin Time 11.9 SECONDS (10-13.0); Protime INR 1.05
--- NOTE | 2024-12-14 14:40 | RAD REPORT ---
EXAMINATION: ONE VIEW CHEST XR CLINICAL INDICATION: CHEST PAIN TECHNIQUE: Frontal chest projection is submitted. Examination is limited by patient positioning and t echnique. COMPARISON: 05/11/2024 FINDINGS: The lungs are emphysematous with reticular opacities in both lower lungs which could be interstitial edema or viral infection. The heart is normal in size. No displaced fractures identified. Single-lead pacer device is present.
[2024-12-14 14:53] LABS: Albumin 3.4 g/dL (3.4-5.0); Albumin/Globulin Ratio 0.9 (1.1-1.8); Anion Gap 12.8 mEq/L (5.0-15.0); Bilirubin Direct 0.2 mg/dL (0-0.2); Bilirubin Indirect, Calculated 0.6 mg/dL (0.2-0.8); Bilirubin Total 0.8 mg/dL (0.2-1.0); Globulin 3.6 g/dL (2.3-3.5)
[2024-12-14 14:54] LABS: Potassium 4.8 mEq/L (3.5-5.1)
[2024-12-14 14:55] LABS: Magnesium 1.9 mg/dL (1.6-2.4)
[2024-12-14 14:56] LABS: Troponin High Sensitivity 161.8 pg/mL (<58.9)
--- NOTE | 2024-12-14 15:08 | ER ---
Nurse's Notes [facility] Name: Darrel Ledesma Age: 89 yrs Sex: Male : 1935 Arrival Date: 12/14/2024 Time: 12:39 Bed 19 Private MD: Diagnosis: Acute on chronic heart failure;Elevated troponin Presentation: 12/14 12:56 Chief complaint: Patient states: SOB with any exertion for 1 week. No fever. ll1 Coronavirus screen: Client denies travel out of the [place] in the last 14 days. At this time, the client does not indicate any symptoms associated with coronavirus-19. Ebola Screen: Patient denies travel to an Ebola-affected area in the 21 days before illness onset. Initial Sepsis Screen: Does the patient meet any 2 criteria? No. Patient's initial sepsis screen is negative. Does the patient have a suspected source of infection? No. Patient's initial sepsis screen is negative. Risk Assessment: Do you want to hurt yourself or someone else? Patient reports no desire to harm self or others. Onset of symptoms was December 07, 2024. 12:56 Method Of Arrival: Ambulatory ll1 12:56 Acuity: LIN 3 ll1 Triage Assessment: 12:56 General: Appears in no apparent distress. Behavior is calm, cooperative, appropriate ll1 for age, Reports fatigue for. Pain: Denies pain. Respiratory: Reports shortness of breath on exertion Onset: The symptoms/episode began/occurred 1 week, the patient has moderate shortness of breath. Historical: - Allergies: 12:55 No Known Allergies; ll1 - PMHx: 12:55 Hyperlipidemia; Depression; Diabetes - NIDDM; Hypertension; ll1 - PSHx: 12:55 pacemaker (en); ll1 - Immunization history:: Adult Immunizations up to date. - Infectious Disease History:: Denies. - Social history:: Smoking status: Patient/guardian denies using tobacco. Screenin:[address] [facility] ED Fall Risk Assessment (Adult) History of falling in the last 3 months, kc6 including since admission No falls in past 3 months (0 pts) Confusion or Disorientation No (0 pts) Intoxicated or Sedated No (0 pts) Impaired Gait Yes (1 pt) Mobility Assist Device Used Yes (1 pt) Altered Elimination No (0 pt) Score/Fall Risk Level 0 - 2 = Low Risk Oriented to surroundings. Abuse screen: Denies threats or abuse. Denies injuries from another. Nutritional screening: No deficits noted. Tuberculosis screening: No symptoms or risk factors identified. Assessment: 14:10 Reassessment: No changes from previously documented assessment. Patient and/or family ll1 updated on plan of care and expected duration. Pain level reassessed. 15:58 General: Appears in no apparent distress. comfortable, well groomed, well developed, kc6 Behavior is calm, cooperative, appropriate for age. Pain: Denies pain. Neuro: Level of Consciousness is awake, alert, obeys commands, Oriented to person, place, time, situation, Appropriate for age. Cardiovascular: Denies chest pain, Heart tones S1 S2 present Capillary refill < 3 seconds Rhythm is regular. Respiratory: Reports shortness of breath at rest on exertion Airway is patent Trachea midline Respiratory effort is even, with retractions, Respiratory pattern is symmetrical, tachypnea Breath sounds with wheezes bilaterally. GI: No signs and/or symptoms were reported involving the gastrointestinal system. : No signs and/or symptoms were reported regarding the genitourinary system. EENT: No signs and/or symptoms were reported regarding the EENT system. Derm: No signs and/or symptoms reported regarding the dermatologic system. Skin is intact, is healthy with good turgor, Skin is pink, warm \T\ dry. Musculoskeletal: No signs and/or symptoms reported regarding the musculoskeletal system. Circulation, motion, and sensation intact. Range of motion: intact in all extremities. 16:45 Reassessment: Patient appears in no apparent distress at this time. No changes from kc6 previously documented assessment. Patient and/or family updated on plan of care and expected duration. Pain level reassessed. Patient is alert, oriented x 3, equal unlabored respirations, skin warm/dry/pink. 17:22 Reassessment: Patient appears in no apparent distress at this time. No changes from kc6 previously documented assessment. Patient and/or family updated on plan of care and expected duration. Pain level reassessed. Patient is alert, oriented x 3, equal unlabored respirations, skin warm/dry/pink. Vital Signs: 12:56 BP 130 / 91; Pulse 87; Resp 18; Temp 97.3; Pulse Ox 98% ; Weight 82.1 kg; Height 6 ft. ll1 2 in. ; 17:22 BP 125 / 80; Pulse 85; Resp 18 S; Pulse Ox 99% on R/A; kc6 12:56 Body Mass Index 23.24 (82.10 kg, 187.96 cm) ll1 ED Course: 12:43 Patient arrived in ED. mr 12:56 Triage completed. ll1 12:57 Arm band placed on. ll1 13:02 Eufemia Akhtar PA-C [facility]. sb4 13:02 Patrick Zhang MD is Attending Physician. sb4 14:10 Initial lab(s) drawn, by fl, sent to lab. Inserted saline lock: 22 gauge in right hand, ll1 using aseptic technique. Blood collected. Flushed with 10 mL NS. 14:37 XRAY Chest (1 view) In Process Unspecified. EDMI 14:55 Amada Diane, LAKSHMI is Primary Nurse. kc6 15:07 Hailey Herron MD is Hospitalizing Provider. sb4 15:58 Patient has correct armband on for positive identification. Bed in low position. Call kc6 light in reach. Side rails up X 1. cook fishing vessel on. Pulse ox on. NIBP on. Door closed. Noise minimized. Lights dimmed. Warm blanket given. Pillow given. Verbal reassurance given. 15:58 EKG done, by ED staff, reviewed by Eufemia Akhtar PA-C. kc6 15:58 Patient maintains SpO2 saturation greater than 95% on room air. kc6 17:22 No provider procedures requiring assistance completed. Patient admitted, IV remains in kc6 place. Administered Medications: 15:58 Drug: Furosemide IVP 40 mg IVP once; give over 2 minutes Route: IVP; Site: right hand; kc6 16:45 Follow up: Response: No adverse reaction kc6 Medication: 17:23 VIS not applicable for this client. kc6 Outcome: 15:08 Decision to Hospitalize by Provider. sb4 17:22 Admitted to Med/surg accompanied by tech, via wheelchair, room 404, with chart, kc6 17:22 Condition: good 17:22 Instructed on the need for admit, 17:23 Patient left the ED. kc6 Signatures: Dispatcher [facility] EDMI Minoo Dow, Reg Reg mr Lianne Munoz RN RN ll1 Amada Diane RN RN kc6 Brown, Eufemia, PA-C PA-C sb4
--- NOTE | 2024-12-14 15:09 | EDPHYS ---
Physician Documentation [facility] Name: Darrel Ledesma Age: 89 yrs Sex: Male : 1935 Arrival Date: 12/14/2024 Time: 12:39 Bed 19 Private MD: ED Physician Patrick Zhang HPI: 12/14 13:30 This 89 yrs old Male presents to ER via Ambulatory with complaints of Shortness Of sb4 Breath. 15:04 Patient reports worsening shortness of breath over the past week. States he gets winded sb4 just rolling over in bed. Denies any chest pain. Denies any swelling in his lower extremities. Reports a history of heart attacks but is unsure if he has any diagnosis of congestive heart failure. Is not sure of his daily medications. States that he was seeing Dr. Herron this morning for his symptoms and was sent over for further evaluation. Historical: - Allergies: 12:55 No Known Allergies; ll1 - PMHx: 12:55 Hyperlipidemia; Depression; Diabetes - NIDDM; Hypertension; ll1 - PSHx: 12:55 pacemaker (en); ll1 - Immunization history:: Adult Immunizations up to date. - Infectious Disease History:: Denies. - Social history:: Smoking status: Patient/guardian denies using tobacco. ROS: 15:04 Constitutional: Negative for fever, chills, and weight loss, sb4 15:04 Respiratory: Positive for dyspnea on exertion, shortness of breath, on exertion. 15:04 All other systems are negative, Exam: 15:04 Head/Face: Normocephalic, atraumatic. Eyes: Extra-ocular motions intact. Periorbital sb4 areas with no swelling, redness, or edema. ENT: Mucous membranes moist. Cardiovascular: Regular rate and rhythm with a normal S1 and S2. Skin: Warm, dry with normal turgor. Normal color with no rashes, no lesions, and no evidence of cellulitis. 15:04 Constitutional: The patient appears in no acute distress, alert, awake, 15:04 Cardiovascular: Edema: is not appreciated, 15:04 Respiratory: mild respiratory distress is noted, Respirations: normal, Breath sounds: rales, that are mild, are located in both bases, Vital Signs: 12:56 BP 130 / 91; Pulse 87; Resp 18; Temp 97.3; Pulse Ox 98% ; Weight 82.1 kg; Height 6 ft. ll1 2 in. ; 17:22 BP 125 / 80; Pulse 85; Resp 18 S; Pulse Ox 99% on R/A; kc6 12:56 Body Mass Index 23.24 (82.10 kg, 187.96 cm) ll1 MDM: 13:02 Medical Screening Exam initiated sb4 15:08 Differential diagnosis: Bronchitis CHF exacerbation, Chronic Obstructive Pulmonary sb4 Disease pneumonia, pulmonary edema. Data reviewed: vital signs, nurses notes, lab test result(s), EKG, radiologic studies, and as a result, I will admit patient. Consideration of Admission/Observation Patient was admitted/placed on observation. Counseling: I had a detailed discussion with the patient and/or guardian regarding the historical points, exam findings, and any diagnostic results supporting the discharge/admit diagnosis, the presence of at least one elevated blood pressure reading (>120/80) during this emergency department visit, lab results, radiology results, the need for further work-up and treatment in the hospital. 12/14 13:03 Order name: Basic Metabolic Panel; Complete Time: 14:57 [facility] 12/14 13:03 Order name: CBC with Diff; Complete Time: 14:37 [facility] 12/14 13:03 Order name: LFT's; Complete Time: 14:57 [facility] 12/14 13:03 Order name: Magnesium; Complete Time: 14:57 12/14 13:03 Order name: NT PRO-BNP; Complete Time: 14:57 [facility] 12/14 13:03 Order name: PT-INR; Complete Time: 14:27 [facility] 12/14 13:03 Order name: Troponin HS; Complete Time: 14:57 [facility] 12/14 13:03 Order name: XRAY Chest (1 view); Complete Time: 14:41 [facility] 12/14 13:03 Order name: Cardiac monitoring; Complete Time: 15:11 [facility] 12/14 13:03 Order name: EKG - Nurse/Tech; Complete Time: 15:11 [facility] 12/14 13:03 Order name: IV Saline Lock; Complete Time: 15:11 [facility] 12/14 13:03 Order name: Labs collected and sent; Complete Time: 15:11 [facility] 12/14 13:03 Order name: O2 Per Protocol; Complete Time: 15:11 [facility] 12/14 13:03 Order name: O2 Sat Monitoring; Complete Time: 15:12 sb4 EC:32 Rate is 80 beats/min. Rhythm is regular, Sinus Rhythm with Occasional PVCs, 1st degree sb4 heart block. OK interval is prolonged at 214 msec. QRS interval is normal at 102 msec. QT interval is normal at 388 msec. No change from previous ECG on May 11, 2024. Administered Medications: 15:58 Drug: Furosemide IVP 40 mg IVP once; give over 2 minutes Route: IVP; Site: right hand; [facility] 16:45 Follow up: Response: No adverse reaction kc6 Disposition: 22:19 Co-signature as Attending Physician, Patrick Zhang MD I agree with the assessment and brady plan of care. Disposition Summary: 12/14/24 15:08 Hospitalization Ordered Notes: Hospitalization Status: Inpatient Admission sb4 Provider: Hailey Herron4 Location: Telemetry/[facility] (Inpatient) sb4 Condition: Fair sb4 Problem: new sb4 Symptoms: are unchanged sb4 Bed/Room Type: Standard sb4 Room Assignment: 404(12/14/24 15:55) ty Diagnosis - Acute on chronic heart failure sb4 - Elevated troponin sb4 Forms: - Medication Reconciliation Form sb4 - SBAR form sb4 - Leadership Thank You Letter sb4 Signatures: Dispatcher [employer] Patrick Camacho MD MD cha Lewis, Lynsay, RN RN ll1 Amada Diane RN RN kc6 Eufemia Akhtar, ABHI PAMonae sb4 Leonardo Clarke ty Corrections: (The following items were deleted from the chart) 13:03 13:03 Chest Single View+RAD.RAD.BRZ ordered. [facility] 15:55 15:08 sb4 ty
[2024-12-14] MEDS ORDERED: FUROSEMIDE 40 MG/4 ML VIAL ONE (15:53)
[2024-12-14 18:25] VITALS: O2SAT 99
[2024-12-14] MEDS: INSULIN REGULAR (HUMAN) 100 UNIT/ML SQ SCH (20:32)
[2024-12-14] MEDS: ASPIRIN EC 81 MG TAB PO ONE (20:38)
[2024-12-14] MEDS: METOPROLOL XL 25 MG TAB PO SCH (20:38)
[2024-12-14] MEDS: ENOXAPARIN 80 MG/0.8 ML SQ SCH (20:38)
[2024-12-14] MEDS: ATORVASTATIN 40 MG TAB PO SCH (20:39)
--- NOTE | 2024-12-14 21:37 | HP ---
Date of Admission: 12/14/2024 Chief Complaint: Shortness of breath. History Of Present Illness: This is an 89-year-old male patient, who walked into my office today bec ause he was not feeling good and he was seen because of this problem. The patient reported that for last 1 week, he is having shortness of breath. He has shortness of breath with any day-to-day activi ty. Today, when he walked into the office from the parking lot, he was having shortness of breath an d he has been having this problem for last 1 week. He also reports that at nighttime when he is slee ping, he gets short of breath. Denies any chest pain. The patient reports that he had similar type of complaints in the past when he had his heart attack. No fever, cough, congestion. After he was e valuated, it was recommended for him to go to hospital emergency room for further evaluation and the patient agreed to do so. I did call emergency room physician and details were discussed and evaluati on was requested and after the patient was evaluated, emergency room provider called me with all the test results and the patient was admitted to hospital with congestive heart failure problem and abnor mal cardiac enzymes. Allergies: NO KNOWN ALLERGIES. Review of Systems: Cardiovascular: As mentioned above. Respiratory: As mentioned above. All other systems reviewed and negative. Medications: Aspirin 81 mg daily, Tresiba insulin 30 units subcutaneous injection daily in morning, Tradjenta 5 mg daily in morning with breakfast, losartan 25 mg daily, metoprolol succinate 25 mg 2 ti mes a day, simvastatin 40 mg daily, vitamin D3 5000 units daily. 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 Past Surgical History: Coronary artery angioplasty with stent placement, pacemaker with AICD placeme nt, umbilical hernia repair, and surgery for perforated stomach ulcer. Family History: Father had heart disease. Mother , details unknown. Sister is alive and has heart disease. Social History: Negative for smoking and alcohol use. Physical Examination: Vital Signs: Blood pressure was 146/80, pulse 77, temperature 97.7, respiratory rate 28, weight 180. 4 pounds, height 74 inches. General: Awake, alert, oriented, not in distress. HEENT: Head atraumatic, normocephalic. Conjunctivae nonerythematous. Sclerae white. Mouth, no thr ush or edema noted. Ears/Nose, no mass, lesion, discharge noted. Neck: Supple. No JVD, lymph nodes, bruit, thyromegaly noted. Lungs: Bilateral good equal air entry. Clear to auscultation. No rhonchi. No rales. Heart: Normal heart sounds, no murmur or gallop. Abdomen: Soft, bowel sounds normal. No guarding, rigidity, tenderness, mass, hepatosplenomegaly, dis tention, or bruit noted. Extremities: No leg edema. No calf tenderness. Skin: No rash, ulcer, cellulitis. Lymphatics: No lymph node enlargement in neck, supraclavicular, infraclavicular region. Neuro: No focal neurological deficit. Chest: Unremarkable. External Genitalia: Deferred. Rectal: Deferred. Laboratory Data: WBC 8.10, hemoglobin 13.1, platelets 181. Sodium 133, potassium 4.8, chloride 101, bicarb 24, BUN 26, creatinine 1.79, estimated GFR 36, glucose 154. Liver function tests unremarkabl e. Troponin 161.8. ProBNP 12,425. Chest x-ray shows lungs are emphysematous with opacity in both l ower lungs. EKG, . Impression: 1. Congestive heart failure, chronic, systolic and diastolic, with acute exacerbation. 2. Abnormal cardiac enzyme, rule out LA. 3. Coronary artery disease. 4. Chronic kidney disease stage IIIB. 5. Type 1 diabetes mellitus with chronic kidney disease. 6. Hyperlipidemia. 7. Hypertension. 8. Aortic stenosis with aortic regurgitation. 9. Anemia, unspecified. 10. Depression. Plan: We will go ahead and admit the patient to hospital for further evaluation and management of th is problem. The patient is appropriate for inpatient and [facility] For his congestive heart failure, the patient received 40 mg Lasix IV in the emergency room and w e will continue that on a daily basis starting tomorrow. Echo with Doppler will be done tomorrow. W e will consult automatic grinding machine operator for congestive heart failure along with coronary artery disease and abnor mal cardiac enzymes. We will get serial cardiac enzymes. Aspirin 81 mg p.o. x1 dose will be given t onight and starting tomorrow, daily dose will be given. We will give Lovenox 80 mg subcutaneous inje ction daily at bedtime starting tonight. Diabetes will be managed with long-acting insulin Semglee 1 5 units daily in morning and fingerstick blood sugar a.c. and h.s. with mild sliding scale. For hype rtension, we will continue losartan and metoprolol per order. Monitor blood pressure. If necessary, adjust medication. For hyperlipidemia, we will give atorvastatin 40 mg daily at bedtime in place of simvastatin. Chronic kidney disease will not require any further intervention except monitoring. D etails and plan of treatment discussed with the patient. Total time spent 85 minutes including evaluation and management for this hospital admission, communic ation with emergency room provider on 2 different occasions, review of emergency room visit record, a nd review of prior office visit record. PETRA/JOSE ROBERTO Voice ID: [id number]
[2024-12-15 04:49] LABS: Absolute Eosinophils 0.2 K/uL (0-0.5); Absolute Monocytes 0.8 K/uL (0.1-1.3); Absolute Neutrophil 5.7 K/uL (1.8-8.0); Basophils % 0.3 % (0-1.3); Eosinophils % 1.8 % (0-4.4); Hematocrit 37.2 % (39.6-49.0); Hemoglobin 13.3 g/dL (13.6-17.9); MCH 34.4 pg (27.0-35.0); MCHC 35.8 g/dL (32.0-36.0); MPV 6.9 fL (7.6-11.3); Monocytes % 9.4 % (3.3-12.3); Neutrophils % 65.5 % (41.7-73.7); Platelets 187 thou/uL (152-406); RBC Red Blood Cell Count 3.88 M/uL (4.33-5.43); Red Cell Distribution Width 13.7 % (12.1-15.2)
[2024-12-15 05:27] LABS: Anion Gap 11.3 mEq/L (5.0-15.0); Magnesium 1.9 mg/dL (1.6-2.4); Potassium 4.3 mEq/L (3.5-5.1)
[2024-12-15 05:29] LABS: Thyroid Stimulating Hormone 3.79 uIU/mL (0.358-3.740)
[2024-12-15] MEDS: VITAMIN D 5,000 UNIT CAP PO SCH (08:29)
[2024-12-15] MEDS: VITAMIN B COMPLEX 1 CAP PO SCH (08:29)
[2024-12-15] MEDS: FUROSEMIDE 40 MG/4 ML VIAL IV SCH (08:29)
[2024-12-15] MEDS: ASPIRIN 81 MG CHEWABLE TABLET PO SCH (08:29)
[2024-12-15] MEDS: INSULIN GLARGINE 100 UNIT/ML SQ SCH (08:30)
[2024-12-15] MEDS: LOSARTAN POTASSIUM 50 MG TABLET PO SCH (08:30)
--- NOTE | 2024-12-15 13:02 | ECHO ---
HEIGHT: 6 ft 2 in WEIGHT: 180 lb 0 oz DATE OF STUDY: 12/15/[address]: Chester Herron MD 2-DIMENSIONAL: YES M.MODE: YES DOPPLER: YES COLOR FLOW: YES TDS: YES PORTABLE: YES DEFINITY: BUBBLE STUDY: DIAGNOSIS: CONGESTIVE HEART FAILURE CARDIAC HISTORY: CATHERIZATION: YE SURGERY: NO PROSTHETIC VALVE: NO PACEMAKER: YES MEASUREMENTS (cm) DIASTOLIC (NORMALS) SYSTOLIC (NORMALS) IVSd 1.3 (0.6-1.2) LA Diam 2.9 (1.9-4.0) LVEF 40-45% LVIDd 4.7 (3.5-5.7) LVIDs 3.7 (2.0-3.5) %FS 20% LVPWd 1.3 (0.6-1.2) Ao Diam 2.7 (2.0-3.7) 2 DIMENSIONAL ASSESSMENT: RIGHT ATRIUM: NORMAL LEFT ATRIUM: NORMAL RIGHT VENTRICLE: PACEMAKER LEFT VENTRICLE: DEPRESSED EJECTION FRACTION TRICUSPID VALVE: MILD TRICUSPID REGURGITATION MITRAL VALVE: MILD MITRAL REGURGITATION PULMONIC VALVE: NORMAL AORTIC VALVE: MILD AORTIC STENOSIS PERICARDIAL EFFUSION: NONE AORTIC ROOT: NORMAL LEFT VENTRICULAR WALL MOTION: MILD GLOBAL HYPOKINESIS DOPPLER/COLOR FLOW: SEE BELOW COMMENTS: 1. MILDLY DEPRESSED LEFT VENTRICULAR EJECTION FRACTION 40-45% 2. MILD GLOBAL HYPOKINESIS 3. MILD MITRAL REGURGITATION, TRICUSPID REGURGITATION 4. MILD AORTIC INSUFFICIENCY 5. MODERATE DIASTOLIC DYSFUNCTION 6. 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
[2024-12-15 17:21] VITALS: BMI 23.1
--- NOTE | 2024-12-15 17:33 | CON ---
Date of Consultation: 12/15/2024 Reason For Consultation: CHF, elevated troponin. History Of Present Illness: An 89-year-old male, past medical history of diabetes, hypertension, dys lipidemia, chronic diastolic and systolic heart failure, aortic regurgitation, aortic valve stenosis, chronic kidney disease, presented to the emergency room because of not feeling well and increasing s hortness of breath and orthopnea, found to be in CHF. He was brought in by Dr. Herron and started on I V diuretics and he already feels much better. Denies having any chest pain. He does have a cardiolo gist at [place]. He follows up with Dr. Doyle. He is known to have coronary artery disease status po st stent placement. Denies having any chest pain. Past Medical History: As outlined above in the HPI. Medications: Refer reconciliation sheet for detailed list. Allergies: NO KNOWN DRUG ALLERGIES. Family History: No premature coronary artery disease or cancer. Social History: He does not smoke or drink. Does not use any drugs. Review of Systems: All systems reviewed, they were negative except as mentioned in the HPI. Physical Examination: Vital Signs: Reviewed. Head and Neck: Pupils are equal, reactive to light. Intact eye movements. No JVD. No cervical lym phadenopathy. Neck is supple. Thyroid is not enlarged. Lungs: Clear to auscultation bilaterally. No rhonchi, wheezing, or crackles. No accessory muscle u se. Heart: Regular. No extra sounds. Abdomen: Soft, nontender. Bowel sounds positive. No organomegaly. No masses or hernia. No rigidi ty or rebound. Extremities: No edema, clubbing, or cyanosis. Intact pulses. Skin: No rash. No nodules. Neurologic: Alert, awake, and oriented x3. No acute focal deficits appreciated. Investigations: Labs were reviewed. Assessment And Recommendation: 1. Shortness of breath, likely due to acute heart failure exacerbation, improving with Lasix. Contin ue current therapy. The patient is being monitored by Dr. Herron, BUN, creatinine, electrolytes. 2. Elevated troponin, mildly. There is no chest pain. This is likely demand. Recommend outpatient cardiac stress test. He follows up with Dr. Doyle in [place]. Was encouraged to follow up in 2 days post discharge. 3. Hypertension. Blood pressure is controlled. 4. Dyslipidemia. Continue atorvastatin 40 mg at bedtime. Cardiology will sign off this case and to follow up with primary manpower development manager post discharge. Thank you Dr. Herron for this consult. /JOSE ROBERTO Voice ID: [id number] Report ID: [id number]
[2024-12-16 06:35] LABS: Anion Gap 12.4 mEq/L (5.0-15.0); Potassium 4.4 mEq/L (3.5-5.1)
--- NOTE | 2024-12-16 08:49 | PN ---
Date of Progress Note: 12/15/2024 Subjective: The patient was seen this morning for followup. No new complaints or problems reported. His blood sugar early this morning had dropped down to 46 and the patient reports that he had absol utely no symptoms from this. Nursing staff to get appropriate measures for correction and blood suga r started to come up. He denies any shortness of breath or chest pain overnight. Objective: Vital Signs: Reviewed. HEENT: Unremarkable. Lungs: Clear to auscultation. Abdomen: Soft. Bowel sounds normal. No guarding, rigidity, tenderness, distention. Extremities: No leg edema. Laboratory Data: Labs reviewed. Impression: 1. Congestive heart failure. 2. Coronary artery disease. 3. Rule out myocardial infarction. 4. Diabetes mellitus. 5. Hypertension. Plan: The patient takes Tresiba 30 units subcutaneous injection daily in the morning. Unfortunately , he did not have any symptoms of hypoglycemia with frequently low blood sugar this morning. What I have informed him that upon discharge from the hospital, we should reduce his insulin dose and the pa tient should have some protein snack at bedtime. We will continue current diuretic therapy. Echo wi ll be done today. Follow up with wafer fabricator. Continue Lovenox and aspirin per order and I will see him tomorrow for followup. PETRA/MODL Voice ID: [id number] Report ID: [id number]
[2024-12-16 12:03] VITALS: BP 137/83; TEMP 98.2
--- NOTE | 2024-12-17 12:09 | DS ---
Date of Discharge: 12/16/2024 Disposition: Discharged to go home. Physical Examination: HEENT: Unremarkable. Lungs: Clear to auscultation. Heart: Sounds normal. Abdomen: Soft, bowel sounds normal. No guarding, rigidity, tenderness, distention. Extremities: No leg edema. Laboratory Data: Upon admission, WBC 8.1, hemoglobin 13.1, platelets 181. Day after admission, WBC 8.7, hemoglobin 13.3, platelets 187. For chemistry; last chemistry today, sodium 135, potassium 4.4, chloride 100, bicarb 27, BUN 35, creatinine 2.04, glucose 111, triglyceride 71, total cholesterol 12 0, LDL 63, HDL 43. Hemoglobin A1c was pending, , . Upon admission, sodium 133, potassium 4.8, chloride 101, bicarb 24, BUN 26, creatinine 1.79, glucose 154. Liver function tests u nremarkable. Initial troponin 161.8, second troponin 28.7, third troponin 136.5, fourth troponin 132 .8. TSH was 3.790. Echocardiogram showed ejection fraction 40% to 45%, moderate diastolic dysfuncti on, severe pulmonary hypertension. Discharge Medications And Instructions: 1. . 2. . 3. . Discharge Diagnoses: 1. . 2. . 3. . Hospital Course: This is an 89-year-old pleasant male patient who was admitted to the hospital with complaints of shortness of breath. Please see dictated H and P for more information. After patient was evaluated in the emergency room, was admitted to the hospital with congestive heart failure probl em. The patient has both chronic and diastolic heart failure. He was treated with IV Lasix and resp onded very well. His symptoms improved, he started to ambulate well. 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 Day after admission, the patient had severe hypoglycemia with glucose of 46 and he had no symptoms from this hypoglycemia and his hypoglycemia was corrected. At home, he takes Tresiba 30 units on a daily basis in the morning and I have instructed him to lower dose to 10 units and that i s what we continued in the hospital. I have also instructed him to eat nuts at bedtime to reduce ear ly morning hypoglycemia problem. We will have to make adjustment on his diabetes medication on an ou tpatient basis. Recently, Tradjenta was started and we will consider adding other oral hypoglycemic medication. Plan is to possibly add medication like SGLT2 inhibitor and GLP1 agonist as the time goe s on. Today, he was discharged to go home in stable condition with above-mentioned medications and i nstructions. Total time spent 45 minutes. PETRA/MODL Voice ID: [id number] Report ID: [id number]
--- NOTE | 2024-12-19 12:35 | EKG ---
Test Date: 2024-12-14 Test Time: 15:06:28 Tire Curer: ANKIT MEASUREMENT RESULTS: Intervals: Rate: 80 MI: 214 QRSD: 102 QT: 388 QTc: 447 [place]: P: 70 MI: 214 QRS: 83 T: -82 INTERPRETIVE STATEMENTS: Sinus rhythm with 1st degree AV block with occasional premature ventricular complexes and premature atrial complexes ST & T wave abnormality, consider inferolateral ischemia Abnormal ECG Compared to ECG 05/11/2024 10:59:05 Atrial premature complex(es) now present Possible ischemia now present Sinus tachycardia no longer present ST (T wave) deviation still present Electronically Signed On 12-19-24 12:26:50 CDT by Jared Cantu
== END 2024-12-16 16:06 | disposition home or self-care (01) | DRG 291 ==
LOC: ER 12:39 → ERHOLD 15:36 → 4TH 16:18
PROVIDERS: ADMIT Internal Medicine; ATTEND Internal Medicine
DX: I13.0 Hypertensive heart and chronic kidney disease with heart failure and stage 1 through stage 4 chronic kidney disease, or unspecified chronic kidney disease (principal); I50.43 Acute on chronic combined systolic (congestive) and diastolic (congestive) heart failure; I24.89 Other forms of acute ischemic heart disease; N18.32 Chronic kidney disease, stage 3b; E10.22 Type 1 diabetes mellitus with diabetic chronic kidney disease; E10.649 Type 1 diabetes mellitus with hypoglycemia without coma; D63.1 Anemia in chronic kidney disease; I27.20 Pulmonary hypertension, unspecified; E78.5 Hyperlipidemia, unspecified; F32.A Depression, unspecified; I35.2 Nonrheumatic aortic (valve) stenosis with insufficiency; I25.10 Atherosclerotic heart disease of native coronary artery without angina pectoris; R79.89 Other specified abnormal findings of blood chemistry; Z79.4 Long term (current) use of insulin; Z95.1 Presence of aortocoronary bypass graft; Z95.5 Presence of coronary angioplasty implant and graft; Z79.82 Long term (current) use of aspirin; Z79.899 Other long term (current) drug therapy; Z95.810 Presence of automatic (implantable) cardiac defibrillator
CPT/HCPCS: 36415; 71045; 80048; 80061; 80076; 82947; 83036; 83735; 83880; 84439; 84443; 84484; 85025; 85610; 93005; 93306; 96374; 99285; J1650; J1815; J1938